=== PATIENT | male | born 1935 | race Caucasian/White ===

== ENCOUNTER 2024-02-22 01:11 | Inpatient (IN) | payer MEDICARE, SELFPAY ==
[2024-02-22] VITALS (38 sets, daily range): BP systolic 85–146; BP diastolic 46–86; PULSE 79–105; RESP 16–95; TEMP 35.7–37.3; O2SAT 90–99; BMI 31.5
--- NOTE | 2024-02-22 01:14 | EKG_ITS ---
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
--- NOTE | 2024-02-22 01:14 | XR_ITS ---
Examination: AP chest single view Technique: AP portable upright chest single view Exam date and time: February 22, 2024 at 0128 hrs. Comparison November 14, 2011 Indications: Onset chest pain today. Findings: Mild prominence left ventricle Mild vascular congestion. No lobar pneumonia or pulmonary edema Impression: Mild vascular congestion
--- NOTE | 2024-02-22 01:28 | PD.EDWEAK ---
ED Weakness RME/HPI General Chief complaint: Weakness Stated complaint: HYPOTENSION Time Seen by Provider: 02/22/24 01:13 Source: patient and EMS Arrival date/time: 02/22/24 01:11 Mode of arrival: EMS Limitations: no limitations RME / HPI RME / HPI Narrative: DR JONES MAIN ED EVALUATION: 88-year-old hard of hearing male and poor historian presents to ED via EMS for complaints of generalized weakness. He notes constipation. Denies any other medical complaints or associated symptoms. Complete HPI/ROS is unobtainable secondary to patient's condition and mental status. Related Data Home Medications ?Medication ?Instructions ?Recorded ?Confirmed isosorbide mononitrate 30 mg 30 mg PO QAM 02/22/24 02/22/24 tablet,extended release 24 hr sennosides 8.6 mg-docusate sodium 1 tab PO BID PRN Constipation 02/22/24 02/22/24 50 mg tablet (Senexon-S) warfarin 6 mg tablet 6 mg PO QDAY 02/22/24 02/22/24 aspirin 81 mg tablet 81 mg PO QDAY 02/25/24 02/25/24 Allergies Allergy/AdvReac Type Severity Reaction Status Date / Time aspirin AdvReac Unknown NOT Verified 12/11/20 11:07 ALLERGIC, BUT TAKES COUMADIN Review of Systems Review of Systems ROS Unobtainable: unobtainable due to mental status Narrative Review of Systems: Complete HPI/ROS is unobtainable secondary to patient's condition and mental status. Past Medical History Past Medical History NEUROLOGIC: Negative Seizures CARDIAC: Negative Congestive Heart Failure RESPIRATORY: Negative Chronic Obstructive Pulmonary Disease (COPD) or Asthma GENITOURINARY: Negative Renal Disease ENDOCRINE: Negative Diabetes Mellitus Type 1 or Diabetes Mellitus Type 2 HEMATOLOGIC: Negative Sickle Cell Disease OTHER HISTORY: Negative Blood Transfusions, Blood Transfusion Reaction or Anesthesia Reactions Social History SMOKING STATUS: Never smoker SECOND HAND EXPOSURE: No SUBSTANCE USE: does not use ED Exam Narrative Physical exam: GENERAL APPEARANCE: alert and oriented to person; hard of hearing; well-developed, well-nourished, no acute distress VITALS: All vitals were reviewed and the pulse ox is 96% on room air, which is normal according to my interpretation. HEENT: Normocephalic, atraumatic; pupils equal, round, reactive to light; EOMI; mucous membranes pink, moist; oropharynx clear NECK: Supple LUNGS: CTABL; no wheezes, no rales, no rhonchi HEART: Regular rate, regular rhythm; normal S1, S2; no murmurs ABDOMEN: non distended; normal BS; soft, no tenderness, no guarding, no rebound; no masses, no organomegaly, no hernia BACK: no CVA tenderness EXTREMITIES: atraumatic; no edema NEUROLOGIC: awake; alert and oriented x4; cranial nerves II-XII grossly intact; no focal sensory or motor deficits PSYCHIATRIC: appropriate mood and affect SKIN: warm, dry, normal color; no rashes General Limitations: Present no limitations Course Quality Measures none Orders Category Date Time Status Bedside COVID-19 Antigen Test NOW Care 02/22/24 03:49 Completed Sleep Manager NOW Care 02/22/24 01:14 Completed EKG (ED ONLY) *Do not use* NOW Care 02/22/24 01:14 Completed Lopez [Urinary Catheter] QS Care 02/22/24 01:37 Active Initiate Warming Therapy NOW Care 02/22/24 01:47 Completed Insert IV NOW Care 02/22/24 01:15 Completed Occult Blood,Stool (Nursing) NOW Care 02/22/24 02:15 Completed Transfuse,blood/blood products NOW Care 02/22/24 02:15 Completed EKG (ED Only) Stat Exams 02/22/24 01:14 Draft XR chest 1V portable Stat Exams 02/22/24 01:14 Completed B-Type Natriuretic Peptide Stat Lab 02/22/24 01:35 Completed Blood Culture (Lab) Stat Lab 02/22/24 02:40 Completed CBC Stat Lab 02/22/24 01:35 Completed Comprehensive Metabolic Panel Stat Lab 02/22/24 01:35 Completed Lactate (Lactic Acid) Stat Lab 02/22/24 01:45 Completed Lipase Stat Lab 02/22/24 01:35 Completed Magnesium Stat Lab 02/22/24 01:35 Completed Occult Blood, Stool (LAB) Stat Lab 02/22/24 03:40 Completed Partial Thromboplastin Time Stat Lab 02/22/24 01:35 Completed Path Review Blood Smear Stat Lab 02/22/24 01:35 Completed Procalcitonin Stat Lab 02/22/24 01:35 Completed Prothrombin Time with INR Stat Lab 02/22/24 01:35 Completed Red Blood Cells Stat Lab 02/22/24 02:40 Completed Troponin I Stat Lab 02/22/24 01:35 Completed Type and Screen Stat Lab 02/22/24 02:40 Completed UA [Urinalysis] Stat Lab 02/22/24 01:45 Completed Urine Culture Stat Lab 02/22/24 01:45 Completed Phytonadione Inj [Vitamin K Inj] Med 02/22/24 03:52 Discontinued 10 mg SC X1 ONE Sodium Chloride 0.9% 1000 ml [Ns] 1,000 ml Med 02/22/24 01:14 Discontinued IV 999 mls/hr Vital Signs Vital signs: Vital Signs Temperature 96.2 F L 02/22/24 01:22 Pulse Rate 91 02/22/24 01:22 Respiratory Rate 16 02/22/24 01:22 Blood Pressure 118/65 02/22/24 01:22 Pulse Oximetry (%) 99 02/22/24 01:22 Oxygen Delivery Method Room Air 02/22/24 01:22 Weakness MDM Narrative MDM Narrative:: Scribe Attestation: IManolo am scribing for and in the presence of Dr. Jones. Provider Notation: Although this document has been carefully reviewed, there may still be some phonetic and other typographical errors. These errors are purely grammatical due to imperfections in the software program and should not be construed in any way to compromise the substance of the patient's medical care during this visit. 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 Films were reviewed. Labs significant for hgb 6.0, WBC 11.3, hematocrit 22.9, MCV 63, PT greater than 63.0, INR out of range and APTT 58.3. Medications / Prescriptions Medications or Prescriptions considered but not ordered:: None Medication administrations:: Medication Administration History Acetaminophen (Acetaminophen Lyly 325 Mg/10 Ml Udc) 650 mg PO Q6H PRN PRN Reason: PAIN SCALE 1-3 (mild Stop: 03/24/24 20:28 Acetaminophen (Acetaminophen Supp 650 Mg Supp) 650 mg NV Q6HR PRN PRN Reason: PAIN Stop: 03/30/24 12:31 Last Admin: 02/29/24 13:33 Dose: 650 mg Documented By: TD Acetylcysteine (Acetylcysteine Rt Lyly 10% 4 Ml Nebu) 3 ml INH Q8HRRT JOE Stop: 03/30/24 22:59 Last Admin: 03/01/24 14:40 Dose: 3 ml Documented By: Admin: 03/01/24 06:32 Dose: 3 ml Documented By: Admin: 02/29/24 23:48 Dose: 3 ml Documented By: KASI Amiodarone HCl (Amiodarone Hcl 200 Mg Tablet) 200 mg PO BID [facility] Stop: 03/26/24 10:14 Last Admin: 03/01/24 10:00 Dose: Not Given Documented By: JDada Non-Admin Reason: NPO Admin: 02/29/24 21:10 Dose: 200 mg Documented By: Admin: 02/28/24 09:00 Dose: Not Given Documented By: VL Non-Admin Reason: Other, see note Comments: Held per Dr Gould. Admin: 02/27/24 21:06 Dose: 200 mg Documented By: Admin: 02/27/24 09:27 Dose: 200 mg Documented By: Admin: 02/26/24 21:21 Dose: 200 mg Documented By: Admin: 02/26/24 09:11 Dose: 200 mg Documented By: Admin: 02/25/24 20:19 Dose: 200 mg Documented By: Admin: 02/25/24 10:28 Dose: 200 mg Documented By: YOSEF Diltiazem HCl (Diltiazem 30 Mg Tablet) 30 mg PO BID JOE Stop: 03/28/24 10:14 Last Admin: 02/28/24 09:14 Dose: Not Given Documented By: VL Non-Admin Reason: Other, see note Comments: Hold per Dr Gould. Admin: 02/27/24 21:09 Dose: 30 mg Documented By: Admin: 02/27/24 10:25 Dose: 30 mg Documented By: NV Glycerin (Glycerin, Adult 1 Ea Supp) 1 each NV QDAY PRN PRN Reason: CONSTIPATION Last Admin: 02/29/24 16:42 Dose: 1 each Documented By: TD Haloperidol Lactate (Haloperidol Lact Inj 5 Mg/Ml Vial) 2.5 mg IV Q6HR PRN PRN Reason: AGITATION (SEVERE) Piperacillin/Tazobactam/Dextrose (Zosyn) 3.375 gm in 50 mls @ 12.5 mls/hr IV Q8HR JOE Stop: 03/08/24 05:59 Last Admin: 03/01/24 14:31 Dose: 12.5 mls/hr Documented By: Infusion: 03/01/24 09:59 Dose: Infused Documented By: Admin: 03/01/24 05:59 Dose: 12.5 mls/hr Documented By: NL Potassium Chloride 40 meq/Calcium Gluconate 1 gm/Magnesium Sulfate 2 gm/Multivitamins/Minerals 10 ml/Amino Acids 1,044 mls @ 50 mls/hr IV .[id number] [facility] Stop: 03/02/24 07:52 Last Admin: 03/01/24 12:59 Dose: 50 mls/hr Documented By: ANTONIO Fat Emulsion-Corinth Oil/Soybean Oil (Clinopid 20% Iv) 500 mls @ 32 mls/hr IV [id number] [facility] Stop: 03/31/24 17:59 Last Admin: 03/01/24 17:51 Dose: 32 mls/hr Documented By: ANTONIO Potassium Chloride 40 meq/Calcium Gluconate 1 gm/Multivitamins/Minerals 10 ml/Amino Acids 1,040 mls @ 100 mls/hr IV .[id number] [facility] Stop: 03/02/24 13:23 Iron Sucrose (Iron Sucrose Cplx Inj 20 Mg/Ml Vial 5 Ml) 200 mg IVP DAILY JOE Stop: 03/04/24 09:01 Last Admin: 03/01/24 09:03 Dose: 200 mg Documented By: Admin: 02/29/24 09:16 Dose: 200 mg Documented By: TD Levalbuterol HCl (Levalbuterol Rt 0.63 Mg/3 Ml Nebu) 0.63 mg INH Q8HRRT [facility] Stop: 03/28/24 14:59 Last Admin: 12/09/24 14:40 Dose: 0.63 mg Documented By: Admin: 03/01/24 06:31 Dose: 0.63 mg Documented By: Admin: 02/29/24 23:48 Dose: 0.63 mg Documented By: Admin: 02/29/24 13:53 Dose: 0.63 mg Documented By: Admin: 02/29/24 07:34 Dose: 0.63 mg Documented By: Admin: 02/28/24 23:55 Dose: 0.63 mg Documented By: Admin: 02/28/24 14:38 Dose: 0.63 mg Documented By: Admin: 02/28/24 06:59 Dose: 0.63 mg Documented By: Admin: 02/27/24 22:13 Dose: 0.63 mg Documented By: Admin: 02/27/24 14:00 Dose: 0.63 mg Documented By: ERNESTO Midodrine (Midodrine 5 Mg Tablet) 5 mg PO TID PRN PRN Reason: SBP <90 Stop: 03/30/24 16:44 Ondansetron HCl (Ondansetron Inj 2 Mg/Ml Inj 2 Ml) 4 mg IV Q6H PRN; Protocol PRN Reason: NAUSEA OR VOMITING Stop: 03/23/24 04:08 Pantoprazole Sodium (Pantoprazole Inj 40 Mg Vial) 40 mg IVP QDAY [facility] Stop: 03/29/24 10:14 Last Admin: 03/01/24 09:04 Dose: 40 mg Documented By: JDada Admin: 02/29/24 09:16 Dose: 40 mg Documented By: Admin: 02/28/24 11:00 Dose: 40 mg Documented By: VL Discontinued Medications Acetaminophen (Acetaminophen 325 Mg Tablet) 650 mg PO Q6H PRN PRN Reason: Fever >101.5 Stop: 03/23/24 04:08 Acetaminophen (Acetaminophen 325 Mg Tablet) 650 mg PO Q6H PRN PRN Reason: PAIN SCALE 1-3 (mild Stop: 03/23/24 04:08 Acetaminophen (Acetaminophen Lyly 325 Mg/10 Ml Udc) 650 mg GT Q6H PRN PRN Reason: Fever >101.5 Stop: 03/24/24 20:27 Acetaminophen (Acetaminophen Lyly 325 Mg/10 Ml Udc) 650 mg GT Q6H PRN PRN Reason: PAIN SCALE 1-3 (mild Stop: 03/24/24 20:28 Acetaminophen (Acetaminophen Lyly 325 Mg/10 Ml Udc) 650 mg PO Q6H PRN PRN Reason: Fever >101.5 Stop: 03/24/24 20:27 Acetaminophen (Acetaminophen Lyly 325 Mg/10 Ml Udc) 650 mg PO Q6H PRN PRN Reason: PAIN SCALE 1-3 (mild Stop: 03/24/24 20:28 Acetylcysteine (Acetylcysteine Rt Lyly 10% 4 Ml Nebu) 3 ml INH Q4HRRT JOE Stop: 03/29/24 10:59 Acetylcysteine (Acetylcysteine Rt Lyly 10% 4 Ml Nebu) 3 ml INH Q8HRRT JOE Stop: 03/29/24 14:59 Acetylcysteine (Acetylcysteine Rt Lyly 10% 4 Ml Nebu) 3 ml INH Q6HRRT [facility] Stop: 03/29/24 12:59 Last Admin: 02/29/24 13:36 Dose: 3 ml Documented By: Admin: 02/29/24 07:35 Dose: 3 ml Documented By: Admin: 02/29/24 00:10 Dose: 3 ml Documented By: Admin: 02/28/24 18:50 Dose: 3 ml Documented By: Admin: 02/28/24 14:38 Dose: 3 ml Documented By: LEILA Alprazolam (Alprazolam 0.25 Mg Tablet) 0.25 mg PO X1 ONE Stop: 02/23/24 13:31 Last Admin: 02/23/24 13:46 Dose: 0.25 mg Documented By: CS Olanzapine 10 mg/ Sterile (Water 2.1 ml) 0 mg IM QDAY ONE Stop: 02/28/24 01:50 Last Admin: 02/28/24 02:21 Dose: 1 dose Documented By: NL Docusate Sodium (Docusate Sod 100 Mg Capsule) 100 mg PO QDAY [facility]; Protocol Stop: 03/23/24 08:59 Furosemide (Furosemide Inj 10 Mg/Ml 4ml Vial) 40 mg IVP X1 ONE Stop: 02/22/24 12:33 Last Admin: 02/22/24 13:08 Dose: 40 mg Documented By: CHAPINCITO Furosemide (Furosemide Inj 10 Mg/Ml Vial 2 Ml) 40 mg IVP BIDD [facility] Stop: 03/24/24 10:29 Last Admin: 02/24/24 05:08 Dose: 40 mg Documented By: Admin: 02/23/24 18:43 Dose: 40 mg Documented By: Admin: 02/23/24 12:43 Dose: 40 mg Documented By: CS Furosemide (Furosemide Inj 10 Mg/Ml 4ml Vial) 40 mg IVP X1 ONE Stop: 02/29/24 12:34 Last Admin: 02/29/24 13:33 Dose: 40 mg Documented By: TD Haloperidol Lactate (Haloperidol Lact Inj 5 Mg/Ml Vial) 5 mg IV X1 ONE Stop: 02/28/24 03:50 Last Admin: 02/29/24 09:20 Dose: Not Given Documented By: TD Non-Admin Reason: not needed overnight Haloperidol Lactate (Haloperidol Lact Inj 5 Mg/Ml Vial) 5 mg IM X1 ONE Stop: 02/28/24 03:50 Last Admin: 02/28/24 04:22 Dose: 5 mg Documented By: DARIEN Sodium Chloride (Ns) 1,000 mls @ 999 mls/hr IV .Q1H1M ONE Stop: 02/22/24 02:14 Last Admin: 02/22/24 02:47 Dose: Not Given Documented By: ELICEO Non-Admin Reason: Cancelled by Provider Prothrombin Complex Concent ( Human) 5,000 unit/ Sterile Water 100 ml/ IV Miscellaneous Supplies 100 mls @ 400 mls/hr IV X1 ONE Stop: 02/22/24 04:26 Last Admin: 02/22/24 04:31 Dose: Not Given Documented By: MARTIN Non-Admin Reason: Cancelled by Provider Prothrombin Complex Concent ( Human) 4,950 unit/ Sterile Water 100 ml/ IV Miscellaneous Supplies 100 mls @ 400 mls/hr IV X1 ONE Stop: 02/22/24 04:26 Last Infusion: 02/22/24 05:55 Dose: Infused Documented By: Admin: 02/22/24 05:21 Dose: 400 mls/hr Documented By: SF Piperacillin Sod/Tazobactam (Sod 3.375 gm/ Sodium Chloride) 50 mls @ 12.5 mls/hr IV Q8HR JOE Stop: 02/29/24 18:14 Last Infusion: 02/25/24 19:53 Dose: Infused Documented By: Admin: 02/25/24 05:17 Dose: 12.5 mls/hr Documented By: Infusion: 02/25/24 01:19 Dose: Infused Documented By: Admin: 02/24/24 21:19 Dose: 12.5 mls/hr Documented By: Infusion: 02/24/24 18:01 Dose: Infused Documented By: Admin: 02/24/24 14:01 Dose: 12.5 mls/hr Documented By: Infusion: 02/24/24 09:08 Dose: Infused Documented By: Admin: 02/24/24 05:08 Dose: 12.5 mls/hr Documented By: Infusion: 02/24/24 02:13 Dose: Infused Documented By: Admin: 02/23/24 22:13 Dose: 12.5 mls/hr Documented By: Infusion: 02/23/24 18:25 Dose: Infused Documented By: Admin: 02/23/24 14:25 Dose: 12.5 mls/hr Documented By: Infusion: 02/23/24 09:50 Dose: Infused Documented By: Admin: 02/23/24 05:50 Dose: 12.5 mls/hr Documented By: Infusion: 02/22/24 23:14 Dose: Infused Documented By: Admin: 02/22/24 21:59 Dose: Not Given Documented By: MIHIR Non-Admin Reason: Wrong Time Admin: 02/22/24 19:14 Dose: 12.5 mls/hr Documented By: MIHIR Amiodarone HCl/Dextrose (Nexterone Ivpb) 150 mg in 100 mls @ 600 mls/hr IV .Q10M ONE Stop: 02/23/24 16:42 Last Admin: 02/23/24 16:55 Dose: 600 mls/hr Documented By: VA Amiodarone HCl/Dextrose (Nexterone Ivpb) 360 mg in 200 mls @ 33.333 mls/hr IV .Q6H ONE Stop: 02/23/24 22:32 Last Admin: 02/23/24 17:15 Dose: 33.333 mls/hr Documented By: VA Amiodarone HCl/Dextrose (Nexterone Ivpb) 360 mg in 200 mls @ 16.667 mls/hr IV .Q12H [facility] Last Admin: 02/24/24 17:56 Dose: Not Given Documented By: YOSEF Non-Admin Reason: held by provider Admin: 02/23/24 23:24 Dose: 16.667 mls/hr Documented By: ASHVIN Potassium Chloride (Kcl Ivpb) 10 meq in 100 mls @ 100 mls/hr IV Q1H JOE Stop: 02/24/24 11:31 Last Admin: 02/24/24 12:22 Dose: 75 mls/hr Documented By: Infusion: 02/24/24 12:22 Dose: Infused Documented By: Admin: 02/24/24 11:22 Dose: 75 mls/hr Documented By: Infusion: 02/24/24 10:46 Dose: Infused Documented By: Admin: 02/24/24 09:26 Dose: 75 mls/hr Documented By: Infusion: 02/24/24 09:25 Dose: Infused Documented By: Admin: 02/24/24 08:05 Dose: 75 mls/hr Documented By: YOSEF Magnesium Sulfate (Magnesium Sulfate Ivpb) 4 gm in 50 mls @ 12.5 mls/hr IV X1 ONE Stop: 02/24/24 11:32 Last Admin: 02/24/24 08:19 Dose: 12.5 mls/hr Documented By: YOSEF Sodium Chloride (Ns) 500 mls @ 999 mls/hr IV .Q31M ONE Stop: 02/24/24 13:01 Last Admin: 02/24/24 12:34 Dose: 999 mls/hr Documented By: YOSEF Albumin Human (Albuminar-25 Ivpb) 12.5 gm in 50 mls @ 50 mls/hr IV X1 ONE Stop: 02/24/24 13:33 Last Admin: 02/24/24 12:45 Dose: 50 mls/hr Documented By: YOSEF Potassium Chloride (Kcl Ivpb) 10 meq in 100 mls @ 70 mls/hr IV Q1H JOE Stop: 02/24/24 20:36 Last Infusion: 02/25/24 19:53 Dose: Infused Documented By: Admin: 02/24/24 23:41 Dose: 70 mls/hr Documented By: Infusion: 02/24/24 22:45 Dose: Infused Documented By: Admin: 02/24/24 21:19 Dose: 70 mls/hr Documented By: Infusion: 02/24/24 21:19 Dose: Infused Documented By: Admin: 02/24/24 20:03 Dose: 70 mls/hr Documented By: Infusion: 02/24/24 19:30 Dose: Infused Documented By: Admin: 02/24/24 18:04 Dose: 70 mls/hr Documented By: YOSEF Sodium Chloride (Ns) 500 mls @ 50 mls/hr IV .Q10H JOE Stop: 02/25/24 05:29 Last Infusion: 02/25/24 19:53 Dose: Infused Documented By: Admin: 02/24/24 19:32 Dose: 50 mls/hr Documented By: MARTHA Potassium Phosphate (Pot Phos 15 Mmol In Ns 250 Ml) 15 mmol in 250 mls @ 62.5 mls/hr IV X1 ONE Stop: 02/25/24 12:28 Last Infusion: 02/25/24 19:53 Dose: Infused Documented By: Admin: 02/25/24 12:35 Dose: 62.5 mls/hr Documented By: YOSEF Piperacillin/Tazobactam/Dextrose (Zosyn) 50 mls @ 12.5 mls/hr IV Q8HR JOE Stop: 02/29/24 18:14 Last Admin: 02/29/24 13:33 Dose: 12.5 mls/hr Documented By: Infusion: 02/29/24 09:31 Dose: Infused Documented By: Admin: 02/29/24 05:31 Dose: 12.5 mls/hr Documented By: Infusion: 02/29/24 01:02 Dose: Infused Documented By: Admin: 02/28/24 21:02 Dose: 12.5 mls/hr Documented By: Infusion: 02/28/24 18:14 Dose: Infused Documented By: Admin: 02/28/24 14:14 Dose: 12.5 mls/hr Documented By: Infusion: 02/28/24 09:15 Dose: Infused Documented By: Admin: 02/28/24 05:15 Dose: 12.5 mls/hr Documented By: Infusion: 02/28/24 01:02 Dose: Infused Documented By: Admin: 02/27/24 21:02 Dose: 12.5 mls/hr Documented By: Infusion: 02/27/24 17:56 Dose: Infused Documented By: Admin: 02/27/24 13:56 Dose: 12.5 mls/hr Documented By: Infusion: 02/27/24 09:14 Dose: Infused Documented By: Admin: 02/27/24 05:14 Dose: 12.5 mls/hr Documented By: Infusion: 02/27/24 01:22 Dose: Infused Documented By: Admin: 02/26/24 21:22 Dose: 12.5 mls/hr Documented By: Infusion: 02/26/24 18:32 Dose: Infused Documented By: Admin: 02/26/24 14:32 Dose: 12.5 mls/hr Documented By: Infusion: 02/26/24 09:38 Dose: Infused Documented By: Admin: 02/26/24 05:38 Dose: 12.5 mls/hr Documented By: Infusion: 02/26/24 03:21 Dose: Infused Documented By: Admin: 02/25/24 21:49 Dose: 12.5 mls/hr Documented By: Infusion: 02/25/24 19:52 Dose: Infused Documented By: Admin: 02/25/24 13:23 Dose: 12.5 mls/hr Documented By: YOSEF Potassium Chloride (Kcl Ivpb) 10 meq in 100 mls @ 100 mls/hr IV Q1H JOE Stop: 02/25/24 19:23 Last Infusion: 02/25/24 23:42 Dose: Infused Documented By: Admin: 02/25/24 20:14 Dose: 75 mls/hr Documented By: KAEstephania Infusion: 02/25/24 19:56 Dose: Infused Documented By: Admin: 02/25/24 18:36 Dose: 75 mls/hr Documented By: Infusion: 02/25/24 18:30 Dose: Infused Documented By: Admin: 02/25/24 17:10 Dose: 75 mls/hr Documented By: Infusion: 02/25/24 17:10 Dose: Infused Documented By: Admin: 02/25/24 15:58 Dose: 75 mls/hr Documented By: YOSEF Lactated Ringer's (Lactated Ringers) 1,000 mls @ 75 mls/hr IV .[id number] JOE Stop: 02/26/24 23:25 Last Admin: 02/27/24 16:06 Dose: Not Given Documented By: ER Non-Admin Reason: d/c chart clean up Sodium Chloride (Ns) 1,000 mls @ 75 mls/hr IV .[id number] ONE Stop: 02/27/24 01:07 Last Admin: 02/26/24 11:59 Dose: 75 mls/hr Documented By: ANTONIO Sodium Chloride (Ns) 500 mls @ 80 mls/hr IV .Q6H15M ONE Stop: 02/28/24 20:21 Last Admin: 02/28/24 14:16 Dose: 80 mls/hr Documented By: ROD Sodium Chloride (Ns) 500 mls @ 500 mls/hr IV .Q1H ONE Stop: 02/28/24 18:42 Last Admin: 02/28/24 17:59 Dose: 500 mls/hr Documented By: ROD Potassium Phosphate 22.5 mmol/ (Sodium Chloride) 507.5 mls @ 82.778 mls/hr IV X1 ONE Stop: 02/29/24 14:07 Last Admin: 02/29/24 09:39 Dose: 82.778 mls/hr Documented By: ARLENE Piperacillin/Tazobactam/Dextrose (Zosyn) 3.375 gm in 50 mls @ 100 mls/hr IV X1 ONE Stop: 02/29/24 19:14 Last Admin: 02/29/24 19:31 Dose: 100 mls/hr Documented By: DARIEN Dextrose (D10w 1000 Ml) 1,000 mls @ 60 mls/hr IV .[id number] JOE Stop: 03/01/24 10:59 Last Admin: 02/29/24 19:30 Dose: 60 mls/hr Documented By: DARIEN Phytonadione 10 mg/ Sodium (Chloride) 51 mls @ 153 mls/hr IV X1 ONE Stop: 03/01/24 07:49 Last Admin: 03/01/24 09:02 Dose: 153 mls/hr Documented By: ANTONIO Potassium Chloride (Kcl Ivpb) 10 meq in 100 mls @ 100 mls/hr IV Q1H JOE Stop: 03/01/24 09:25 Last Admin: 03/01/24 11:03 Dose: 60 mls/hr Documented By: Infusion: 03/01/24 10:44 Dose: Infused Documented By: Admin: 03/01/24 09:03 Dose: 60 mls/hr Documented By: JT Iron Sucrose (Iron Sucrose Cplx Inj 20 Mg/Ml Vial 5 Ml) 200 mg IVP DAILY JOE Stop: 02/28/24 16:44 Last Admin: 02/27/24 09:28 Dose: 200 mg Documented By: Admin: 02/26/24 09:12 Dose: 200 mg Documented By: Admin: 02/25/24 09:34 Dose: 200 mg Documented By: Admin: 02/24/24 18:02 Dose: 200 mg Documented By: YOSEF Comments: Pt. previously down for CT just arrived back on floor. Lansoprazole (Lansoprazole 30 Mg Tab.Rap.) 30 mg GT Q12HR JOE Stop: 03/25/24 21:59 Last Admin: 02/27/24 16:06 Dose: Not Given Documented By: ER Non-Admin Reason: d/c chart clean up Admin: 02/26/24 09:11 Dose: 30 mg Documented By: Admin: 02/25/24 20:20 Dose: 30 mg Documented By: JEFFERY Lansoprazole (Lansoprazole 30 Mg Tab.Rap) 30 mg PO Q12HR JOE Stop: 03/27/24 21:29 Last Admin: 02/26/24 21:21 Dose: 30 mg Documented By: DARIEN Lansoprazole (Lansoprazole 30 Mg Tab.Rap.) 30 mg PO Q12HR JOE Stop: 03/27/24 21:29 Last Admin: 02/28/24 09:17 Dose: Not Given Documented By: VL Non-Admin Reason: Other, see note Comments: Hold per Dr Gould. Admin: 02/27/24 21:09 Dose: 30 mg Documented By: Admin: 02/27/24 09:17 Dose: 30 mg Documented By: Admin: 02/26/24 21:28 Dose: 30 mg Documented By: DARIEN Levalbuterol HCl (Levalbuterol Rt 0.63 Mg/3 Ml Nebu) 0.63 mg INH Q8HR JOE Stop: 03/28/24 13:59 Magnesium Hydroxide (Milk Of Magnesia Susp 30 Ml Udc) 30 ml PO QDAY JOE; Protocol Stop: 03/27/24 10:14 Last Admin: 02/27/24 09:16 Dose: 30 ml Documented By: Admin: 02/26/24 11:17 Dose: 30 ml Documented By: ANTONIO Melatonin (Melatonin 3 Mg Tablet) 3 mg PO HS JOE Stop: 03/28/24 20:59 Last Admin: 02/27/24 21:09 Dose: 3 mg Documented By: DARIEN Midodrine (Midodrine 5 Mg Tablet) 5 mg PO TID PRN PRN Reason: SBP <90 Stop: 03/25/24 21:59 Oxycodone/Acetaminophen (Oxycodone/Apap 5/325 Tablet) 1 tab PO Q6H PRN PRN Reason: PAIN SCALE 4-6 (Moderate Stop: 02/27/24 04:08 Last Admin: 02/23/24 17:22 Dose: 1 tab Documented By: Admin: 02/22/24 13:36 Dose: 1 tab Documented By: CHAPINCITO Oxycodone/Acetaminophen (Oxycodone/Apap 5/325 Tablet) 1 tab GT Q6H PRN PRN Reason: PAIN SCALE 4-6 (Moderate Stop: 02/27/24 04:08 Pantoprazole Sodium (Pantoprazole Inj 40 Mg Vial) 40 mg IVP Q12HR [facility] Stop: 03/23/24 08:59 Last Admin: 02/25/24 09:35 Dose: 40 mg Documented By: Admin: 02/24/24 20:04 Dose: 40 mg Documented By: Admin: 02/24/24 09:40 Dose: 40 mg Documented By: Admin: 02/23/24 20:23 Dose: 40 mg Documented By: Admin: 02/23/24 09:36 Dose: 40 mg Documented By: Admin: 02/22/24 21:59 Dose: 40 mg Documented By: Admin: 02/22/24 08:28 Dose: 40 mg Documented By: CHAPINCITO Pharmacy Consult (Pha To Consult Parenteral Nutr 1 Each Each) 1 each XX PRN PRN PRN Reason: CONSULT Stop: 03/30/24 16:41 Phytonadione (Phytonadione Inj 10 Mg/Ml Amp) 10 mg SC X1 ONE Stop: 02/22/24 03:53 Last Admin: 02/22/24 05:25 Dose: 10 mg Documented By: BLAKE Phytonadione (Phytonadione Inj 10 Mg/Ml Amp) 10 mg SC X1 ONE Stop: 02/22/24 10:59 Last Admin: 02/22/24 11:58 Dose: Not Given Documented By: CHAPINCITO Non-Admin Reason: Cancelled by Provider Phytonadione (Phytonadione Inj 10 Mg/Ml Amp) 10 mg IV X1 ONE Stop: 03/01/24 07:10 Piperacillin Sod/Tazobactam Sod (Piperacillin/Tazo Inj 3.375 Gm Vial) Confirm Administered Dose 3.375 gm IV .STK-MED ONE Stop: 02/24/24 13:44 Last Admin: 02/24/24 14:04 Dose: Not Given Documented By: YOSEF Non-Admin Reason: Duplicate Medication on eMAR Potassium Chloride (Potassium Chloride 10% 20 Meq/15 Ml Udc) 40 meq GT X1 ONE Stop: 02/24/24 15:13 Last Admin: 02/24/24 15:36 Dose: 40 meq Documented By: YOSEF Potassium Chloride (Potassium Chloride 10% 20 Meq/15 Ml Udc) 40 meq GT X1 ONE Stop: 02/24/24 16:37 Last Admin: 02/24/24 16:59 Dose: 40 meq Documented By: YOSEF Quetiapine Fumarate (Quetiapine Fumarate 25 Mg Tablet) 25 mg PO X1 ONE Stop: 02/28/24 00:52 Last Admin: 02/28/24 01:04 Dose: 25 mg Documented By: DARIEN Sennosides (Senna/Docusate Sod 1 Tab Tablet) 1 tab PO BID JOE; Protocol Stop: 03/23/24 08:59 Last Admin: 02/23/24 20:23 Dose: 1 tab Documented By: ASHVIN Comments: VIA NGT Admin: 02/23/24 09:36 Dose: 1 tab Documented By: Admin: 02/22/24 22:00 Dose: 1 tab Documented By: Admin: 02/22/24 08:28 Dose: 1 tab Documented By: CHAPINCITO Sennosides (Senna/Docusate Sod 1 Tab Tablet) 1 tab PO BID JOE; Protocol Stop: 03/23/24 08:59 Last Admin: 02/26/24 09:11 Dose: 1 tab Documented By: Admin: 02/25/24 20:19 Dose: 1 tab Documented By: Admin: 02/25/24 09:28 Dose: Not Given Documented By: YOSEF Non-Admin Reason: held per MD order Admin: 02/24/24 20:03 Dose: 1 tab Documented By: Admin: 02/24/24 09:41 Dose: 1 tab Documented By: Admin: 02/23/24 20:46 Dose: Not Given Documented By: ASHVIN Non-Admin Reason: TASK DUPLICATION; ALREADY GIVEN VIA NGT As above Consultations Consultation(s) initiated? (list below): Yes Consultation #1 (Physician, Specialty, Details): Case d/w hospitalist who agreed to admit patient for further management and work-up Diagnosis Weakness Differential Diagnosis: anemia, hypothyroidism, rhabdomyolysis and dehydration Most likely diagnosis given after review of the tests above:: Acute symptomatic blood loss anemia secondary to severe Coumadin coagulopathy Admission Indicated Admission indicated?: indicated Admission Request Was there a request for admission?: Yes Admission Attestation Admission request attestation: Discussed case with [] from Hospitalist service regarding admission. Discussed patients ED course, exam findings, labs, and radiology results. The Hospitalist [agrees,declines] to accept the patient for admission. Disposition Plan Disposition Plan: Admit Discharge Plan Plan Patient Disposition: Admit Acute Care w/in Hospital Problem List Clinical Impression: Symptomatic anemia, Warfarin-induced coagulopathy, Near syncope
[2024-02-22 01:56] LABS: Collection Type, Urine Catheter
[2024-02-22 01:57] LABS: Basophils % (Auto) 0 % (0-2.5); Eosinophils % (Auto) 0 % (0-10); Hematocrit 22.9 % (41.0-53.0); Immature Granulocytes % (Auto) 1 % (0-0); Immature Granulocytes Auto 0.06 Thou/mm3 (0.00-0.00); Lymphocytes % (Auto) 9 % (10-50); Mean Corpuscular HGB Conc 26.2 g/dl (31.0-37.0); Mean Corpuscular Hemoglobin 16.4 pg (25.0-35.0); Mean Corpuscular Volume 63 fL (80-100); Monocytes # (Auto) 0.6 Thou/mm3 (0.0-0.8); Monocytes % (Auto) 5 % (0-12); Neutrophils # (Auto) 9.6 Thou/mm3 (1.8-7.7); Neutrophils % (Auto) 85 % (37-80); Nucleated Red Blood Cell # 0.04 Thou/mm3 (0.00-0.00); Nucleated Red Blood Cell % 0 /100 WBC (0); Platelet Count 391 Thou/mm3 (140-440); RDW Standard Deviation 43.6 fL (35.1-43.9); Red Blood Count 3.66 Miln/mm3 (4.50-5.90); White Blood Count 11.3 Thou/mm3 (3.8-10.6)
[2024-02-22 02:03] LABS: Bilirubin,Urine Negative (Negative); Blood,Urine Trace (Negative); Clarity,Urine Clear (Clear/Hazy); Color,Urine Yellow (Lt Yel-Yel); Glucose, Urine Negative (Negative); Ketones,Urine 1+ (Negative); Leukocyte Esterase,Urine Negative (Negative); Nitrite,Urine Negative (Negative); Protein,Urine 1+ (Neg - Trace); RBC,Urine 3 /hpf (0-3); Specific Gravity,Urine 1.027 (1.001-1.035); Squamous Epithelial Cell,Urine 1 /hpf (0-5); WBC,Urine 4 /hpf (0-5)
[2024-02-22 02:13] LABS: Lactate (Lactic Acid) 2.7 mMol/L (0.4-2.0)
[2024-02-22 02:19] LABS: B-Type Natriuretic Peptide 236 pg/mL (0-100)
[2024-02-22 02:20] LABS: Alanine Aminotransferase 52 U/L (10-49); Albumin, Serum 3.5 gm/dL (3.4-4.8); Albumin/Globulin Ratio 1.3 (1.2-2.2); Alkaline Phosphatase 102 U/L (46-116); Anion Gap 12 (7-16); Aspartate Amino Transferase 53 U/L (0-34); BUN/Creatinine Ratio 19 Ratio (12-20); Bilirubin,Total 1.4 mg/dL (0.3-1.2); Blood Urea Nitrogen 17 mg/dL (9-23); Calcium 8.4 mg/dL (8.3-10.6); Calcium (Corrected) 8.8 mg/dL (8.5-10.1); Carbon Dioxide 21.5 mMol/L (20.0-31.0); Chloride 103 mMol/L (98-107); Creatinine (Component) 0.9 mg/dL (0.6-1.3); Estimated Creatinine Clearance 65.9 mL/min (>60); Globulin 2.7 gm/dL (2.3-3.5); Glucose 142 mg/dL (74-106); Lipase 22 U/L (12-53); Magnesium 1.6 mg/dL (1.6-2.6); Osmolality,Calculated 275 (275-295); Potassium 3.6 mMol/L (3.4-5.1); Sodium 136 mMol/L (136-145); Total Protein 6.2 gm/dL (5.7-8.2); Troponin I < 0.020 ng/mL (0.0-0.045); eGFR > 60 See Note
[2024-02-22 02:41] LABS: Procalcitonin 0.09 ng/ml (0.0-0.49)
[2024-02-22 03:17] LABS: Partial Thromboplastin Time 58.3 Seconds (22.0-36.0)
[2024-02-22 03:20] LABS: Prothrombin Time > 63.0 Seconds (9.0-12.2)
[2024-02-22 03:52] LABS: OBS Card Lot # 23001; OBS Developer Lot # 23003; OBS Performed By boted; OBS QC OK? Yes; Occult Blood, Stool Negative (Negative)
--- NOTE | 2024-02-22 05:12 | PC.NURSE ---
Per Dr. Meng give full 5000 units prothrombin complex concentrate
[2024-02-22 05:13] LABS: Reflex Lactate? Y
--- NOTE | 2024-02-22 05:16 | ESHP_ITS ---
Documentation for date of: 02/22/24 [facility] History of Present Illness History of present illness: The patient is a 88-year-old male with significant past medical history of gout, hypertension, DVT currently on warfarin who presented to our ED with chief complaint of generalized weakness. The patient called 911 and was brought to the ED. He is very hard of hearing and is poor historian. Multiple attempts were made to contact his son Rj, but was unsuccessful. The patient has been on warfarin 6 mg for a long time. He admitted constipation, but denied any dark stool or any blood per rectum. He denied any headache, chest pain, SOB, palpitation, abdominal pain, or any leg swelling. He also denied any fever or chills, nausea or vomiting. In the ED vitals were significant for temperature of 96.2, saturating 99% on room air. Labs are significant for hemoglobin 6.0, WBC 11.3, hematocrit 22.9, MCV 63, PT greater than 63.0, INR out of range and APTT 58.3. Patient received vitamin K 10 mg subcutaneous x 1, and was given PCC 4950 units. PMH: As mentioned above SHX: Unable to obtain Medications: Warfarin, to be reconciled Allergies: Aspirin Review of Systems Review of Systems Systems Reviewed: All systems reviewed, normal except as documented Exam Vital Signs Temp Pulse Resp BP Pulse Ox O2 Del Method 96.2 F L 79 20 85/46 L 94 L Room Air 02/22/24 01:47 02/22/24 03:00 02/22/24 03:00 02/22/24 03:00 02/22/24 03:00 02/22/24 01:22 Narrative Exam General: No acute distress, Alert and Oriented x 3 HEENT: Mildly dry mucous membranes, oropharynx clear, extremely hard of hearing Neck: Supple, No masses, No JVD CVS: S1S2 Regular rate and rhythm, No murmurs, rubs or gallops Lungs: Clear to auscultation with no accessory use, no wheeze no rhonchi Abd: Soft, NT/ND, +BS, no organomegaly Ext: No edema, warm and well perfused Skin: No rash Psych: Appropriate mood and affect Results: Labs 02/22/24 04:59 02/22/24 04:59 Labs: Short CBC 02/22/24 Range/Units 01:35 WBC 11.3 H (3.8-10.6) Thou/mm3 Hgb 6.0 L* (13.5-16.0) g/dL Hct 22.9 L (41.0-53.0) % Plt Count 391 (140-440) Thou/mm3 BMP 02/22/24 01:35 Sodium 136 Potassium 3.6 Chloride 103 Carbon Dioxide 21.5 BUN 17 Creatinine 0.9 Glucose 142 H Calcium 8.4 Cardiac Enzymes 02/22/24 Range/Units 01:35 Troponin I < 0.020 (0.0-0.045) ng/mL Liver Function 02/22/24 Range/Units 01:35 Total Bilirubin 1.4 H (0.3-1.2) mg/dL AST 53 H (0-34) U/L ALT 52 H (10-49) U/L Alkaline Phosphatase 102 (46-116) U/L Albumin 3.5 (3.4-4.8) gm/dL Urine 02/22/24 Range/Units 01:45 Urine Color Yellow (Lt Yel-Yel) Urine Clarity Clear (Clear/Hazy) Urine pH 6.0 (5.0-7.0) Ur Specific [place] 1.027 (1.001-1.035) Urine Protein 1+ A (Neg - Trace) Urine Glucose (UA) Negative (Negative) Quality Measures Quality Measures none Advance care planning discussed with:: patient Medications Home Medications and Allergies Home Medications ?Medication ?Instructions ?Recorded ?Confirmed ?Type warfarin 6 mg tablet (Coumadin) 6 mg PO QWEEK 12/02/18 12/02/18 History Allergies Allergy/AdvReac Type Severity Reaction Status Date / Time aspirin AdvReac Unknown NOT Verified 12/11/20 11:07 ALLERGIC, BUT TAKES COUMADIN Visit Medications Acetaminophen (Acetaminophen 325 Mg Tablet) 650 mg PO Q6H PRN PRN Reason: Fever >101.5 Stop: 03/23/24 04:08 Acetaminophen (Acetaminophen 325 Mg Tablet) 650 mg PO Q6H PRN PRN Reason: PAIN SCALE 1-3 (mild Stop: 03/23/24 04:08 Ondansetron HCl (Ondansetron Inj 2 Mg/Ml Inj 2 Ml) 4 mg IV Q6H PRN; Protocol PRN Reason: NAUSEA OR VOMITING Stop: 03/23/24 04:08 Oxycodone/Acetaminophen (Oxycodone/Apap 5/325 Tablet) 1 tab PO Q6H PRN PRN Reason: PAIN SCALE 4-6 (Moderate Stop: 02/27/24 04:08 Pantoprazole Sodium (Pantoprazole Inj 40 Mg Vial) 40 mg IVP Q12HR JOE Stop: 03/23/24 08:59 Sennosides (Senna/Docusate Sod 1 Tab Tablet) 1 tab PO BID JOE; Protocol Stop: 03/23/24 08:59 Discontinued Medications Docusate Sodium (Docusate Sod 100 Mg Capsule) 100 mg PO QDAY JOE; Protocol Stop: 03/23/24 08:59 Sodium Chloride (Ns) 1,000 mls @ 999 mls/hr IV .Q1H1M ONE Stop: 02/22/24 02:14 Last Admin: 02/22/24 02:47 Dose: Not Given Prothrombin Complex Concent ( Human) 5,000 unit/ Sterile Water 100 ml/ IV Miscellaneous Supplies 100 mls @ 400 mls/hr IV X1 ONE Stop: 02/22/24 04:26 Last Admin: 02/22/24 04:31 Dose: Not Given Prothrombin Complex Concent ( Human) 4,950 unit/ Sterile Water 100 ml/ IV Miscellaneous Supplies 100 mls @ 400 mls/hr IV X1 ONE Stop: 02/22/24 04:26 Phytonadione (Phytonadione Inj 10 Mg/Ml Amp) 10 mg SC X1 ONE Stop: 02/22/24 03:53 Assessment & Plan Plan The patient is a 88-year-old male with significant past medical history of gout, hypertension, DVT currently on warfarin who presented to our ED with chief complaint of generalized weakness he is currently being treated for acute symptomatic blood loss anemia secondary to severe Coumadin coagulopathy. #Acute symptomatic blood loss anemia 2/2 #Severe Coumadin coagulopathy Patient is taking warfarin for long time for DVT, dose and frequency could not be figured out as patient is very hard of hearing and poor historian Etiology of blood loss unknown, but likely differential is acute GI bleed Presented with hemoglobin 6.0, hematocrit 22.9, PT greater than 63.0, INR out of range and APTT 58.3 Received 1 unit of PRBC in the ED Received 1 dose of vitamin K 10 Mg subcutaneous -Ordered Kcentra 4950 units for Coumadin reversal as INR is out of friends -Monitor H&H every 6 hourly -Post transfusional H&H -We will consider ordering post Kcentra infusion coagulation panel -Occult blood test ordered, depending on the results we will consider consulting GI Dr. Gomez -Monitor vitals closely #Hypertension Currently patient is hypotensive -Monitor vitals #Hypothermia Presented with temperature of 96.2 and patient was placed on warmer -Currently temperature is stable #Leukocytosis -Likely reactive -Daily CBC monitoring Health maintenance: Dispo: Patient admitted to telemetry unit for further management of acute symptomatic blood loss anemia secondary to severe Coumadin coagulopathy Diet: N.p.o. 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 He has supratherapeutic INR with a pro time of greater than 63. Patient was given vitamin K in the ER. Kcentra was also ordered. Patient will receive blood transfusion. Patient is awake. He has stable vital signs. He denies headache and no abdominal pain. Patient will be admitted for treatment of anemia and supratherapeutic INR.
[2024-02-22] MEDS: PROTHROMBIN COMPLEX CONCENT IV (05:21)
[2024-02-22] MEDS: STERILE WATER IV (05:21)
[2024-02-22] MEDS: [UNRECOGNIZED DRUG - OTHER] IV (05:21)
[2024-02-22 05:24] LABS: Lactic Acid, 3 HR 1.7 mMol/L (0.4-2.0)
[2024-02-22] MEDS: PHYTONADIONE INJ 10 MG/ML AMP SC (05:25)
[2024-02-22 05:34] LABS: Basophils % (Auto) 0 % (0-2.5); Eosinophils % (Auto) 0 % (0-10); Hematocrit 21.7 % (41.0-53.0); Immature Granulocytes % (Auto) 1 % (0-0); Immature Granulocytes Auto 0.07 Thou/mm3 (0.00-0.00); Lymphocytes # (Auto) 0.3 Thou/mm3 (1.0-4.8); Lymphocytes % (Auto) 2 % (10-50); Mean Corpuscular HGB Conc 27.2 g/dl (31.0-37.0); Mean Corpuscular Hemoglobin 16.7 pg (25.0-35.0); Mean Corpuscular Volume 61 fL (80-100); Monocytes # (Auto) 1.4 Thou/mm3 (0.0-0.8); Monocytes % (Auto) 10 % (0-12); Neutrophils % (Auto) 87 % (37-80); Nucleated Red Blood Cell # 0.04 Thou/mm3 (0.00-0.00); Nucleated Red Blood Cell % 0 /100 WBC (0); Platelet Count 373 Thou/mm3 (140-440); RDW Standard Deviation 43.4 fL (35.1-43.9); Red Blood Count 3.54 Miln/mm3 (4.50-5.90); White Blood Count 13.7 Thou/mm3 (3.8-10.6)
[2024-02-22 05:39] LABS: Hemoglobin 5.9 g/dL (13.5-16.0)
[2024-02-22 05:41] LABS: Path Review Blood Smear Sent to Pathologist
[2024-02-22 06:04] LABS: Alanine Aminotransferase 46 U/L (10-49); Albumin, Serum 3.1 gm/dL (3.4-4.8); Albumin/Globulin Ratio 1.2 (1.2-2.2); Alkaline Phosphatase 91 U/L (46-116); Anion Gap 10 (7-16); Aspartate Amino Transferase 43 U/L (0-34); BUN/Creatinine Ratio 23 Ratio (12-20); Bilirubin,Total 1.3 mg/dL (0.3-1.2); Blood Urea Nitrogen 18 mg/dL (9-23); Calcium 8.3 mg/dL (8.3-10.6); Chloride 104 mMol/L (98-107); Creatinine (Component) 0.8 mg/dL (0.6-1.3); Estimated Creatinine Clearance 74.1 mL/min (>60); Globulin 2.5 gm/dL (2.3-3.5); Glucose 130 mg/dL (74-106); Magnesium 1.6 mg/dL (1.6-2.6); Osmolality,Calculated 275 (275-295); Potassium 3.5 mMol/L (3.4-5.1); Sodium 136 mMol/L (136-145); Total Protein 5.6 gm/dL (5.7-8.2); eGFR > 60 See Note
--- NOTE | 2024-02-22 07:40 | ECHO_ITS ---
Transthoracic Echo Report Ht (in): 70 Wt (lb): 220 Exam Location: Portable Status: Inpatient Patient Registration Clerk: Maricarmen Link Indications: Procedure Performed: BP: 110 / 63 HR: 101 Rhythm: Tachycardia Technical Quality: Technically difficult study MEASUREMENTS (Male / Female) Normal Values 2D ECHO LV Diastolic Diameter PLAX 5.0 cm 4.2 - 5.9 / 3.9 - 5.3 cm LV Systolic Diameter PLAX 3.6 cm IVS Diastolic Thickness 0.7 cm 0.6 - 1.0 / 0.6 - 0.9 cm LVPW Diastolic Thickness 1.0 cm 0.6 - 1.0 / 0.6 - 0.9 cm LV Relative Wall Thickness 0.3 LVOT Diameter 1.9 cm LA Volume Index 41.6 cm?/m? 16 - 28 cm?/m? M-MODE Aortic Root Diameter MM 3.2 cm LA Systolic Diameter MM 4.4 cm LA Ao Ratio MM 1.4 AV Cusp Separation MM 2.1 cm DOPPLER AV Peak Velocity 188.0 cm/s AV Peak Gradient 14.1 mmHg AV Mean Gradient 8.0 mmHg AV Velocity Time Integral 31.9 cm LVOT Peak Velocity 140.0 cm/s LVOT Peak Gradient 7.8 mmHg LVOT Velocity Time Integral 24.2 cm LVOT Cardiac Index 3081.6 cm?/min?m? AV Area Cont Eq vti 2.2 cm? AV Area Cont Eq pk 2.1 cm? MV Peak Velocity 90.4 cm/s MV Peak Gradient 3.3 mmHg MV Mean Velocity 71.6 cm/s MV Mean Gradient 2.0 mmHg MV Area PHT 3.1 cm? MR Peak Velocity 300.5 cm/s MR Peak Gradient 36.1 mmHg Mitral E Point Velocity 69.4 cm/s Mitral A Point Velocity 81.0 cm/s Mitral E to A Ratio 0.9 LV E' Lateral Velocity 9.9 cm/s Mitral E to LV E' Lateral Ratio 7.0 LV E' Septal Velocity 7.0 cm/s Mitral E to LV E' Septal Ratio 10.0 TR Peak Velocity 362.0 cm/s TR Peak Gradient 52.4 mmHg FINDINGS Left Ventricle Normal left ventricular size, wall thickness, systolic function with no obvious regional wall motion abnormalities. The ejection fraction is visually estimated at 55-60%. Right Ventricle The right ventricle is mildly dilated. The estimated right ventricular systolic pressure, 80mmHg. RAP 15. Left Atrium The left atrium is mildly dilated. Right Atrium The right atrium is mildly dilated. Atrial Septum The interatrial septum appears normal with no evidence of a shunt. Aorta The aorta is normal by two-dimensional, color flow and Doppler interrogation. Mitral Valve The mitral valve is mildly MAC. There is mild mitral valve regurgitation. Aortic Valve The aortic valve is trileaflet and normal by two-dimensional, color flow and Doppler interrogation. There is no significant aortic valve regurgitation. Tricuspid Valve The tricuspid valve is normal by two-dimensional, color flow and Doppler interrogation. There is mil d tricuspid valve regurgitation. Pulmonic Valve The pulmonic valve is not well visualized. There is no significant pulmonic valve regurgitation. Vessels The pulmonary artery appears normal. The inferior vena cava pulmonary and hepatic veins appear vijaya l. Pericardium The pericardium is normal by two-dimensional imaging. There is no significant pericardial effusion. CONCLUSIONS Indication: Elevated BNP Normal LV size and function. Grade I diastolic dysfunction. Estimated EF 55-60% Dilated RV. Normal RV function. Estimated RVSP 80 mm hg. moderate to severe PAH. Mild biatrial dilation. Mild MAC. Mild MR, TR. Alber Prieto (Electronically Signed) Final Date: 24 February 2024 23:39
[2024-02-22] MEDS: SENNA/DOCUSATE SOD 1 TAB TABLET PO ×2 (08:28→22:00)
[2024-02-22] MEDS: PANTOPRAZOLE INJ 40 MG VIAL IVP ×2 (08:28→21:59)
[2024-02-22 10:14] LABS: Total Iron Binding Capacity 267 mcg/dL (250-425)
[2024-02-22 10:24] LABS: Iron 8 mcg/dL (65-175); Percent Iron Saturation 2 % (20-55); Unsaturated Iron Binding 259 (225-295)
[2024-02-22 10:48] LABS: Prothrombin Time > 63.0 Seconds (9.0-12.2)
--- NOTE | 2024-02-22 10:56 | XR_ITS ---
Examination: CT abdomen and pelvis without contrast. Coronal 3-D reconstructions. Sagittal 2-D reconstructions. Date and time of exam:February 22, 2024 1539 hrs. Indications: Abdominal pain and distention beginning today CTDI: vol (mGy): 12.7 DLP: (mGycm): 849 Technique: Axial images of the abdomen have been obtained, 3 mm slice thickness Intravenous contrast material has not been administered. Low dose protocols were performed. One or more of the following dose reduction techniques were used; automated exposure control, adjustment of the mA and/or KV according to patient size, use of iterative reconstruction technique. Findings: Small bilateral pleural effusions Trace pericardial thickening Vasculature is prominent with enlarged cardiac contour Pneumoperitoneum, free fluid in the abdomen No gallstones No hydronephrosis Colonic diverticulosis Normal appendix Urinary bladder contracted around a Lopez catheter Prominent osteopenia Impression: Primary hepatocellular disease Pneumoperitoneum, clinical correlation advised
[2024-02-22] MEDS: FUROSEMIDE INJ 10 MG/ML 4ML VIAL 40 MG IVP (13:08)
[2024-02-22] MEDS: oxyCODONE/APAP 5/325 TABLET 1 TAB PO (13:36)
[2024-02-22 13:52] LABS: Hematocrit 30.4 % (41.0-53.0)
[2024-02-22 14:07] LABS: Hemoglobin 8.8 g/dL (13.5-16.0)
[2024-02-22 14:13] LABS: INR 1.7 (0.9-1.3); Prothrombin Time 18.2 Seconds (9.0-12.2)
--- NOTE | 2024-02-22 14:35 | PC.SS ---
Mariaelena Espinoza a 88-year-old male admitted to [facility] for Symptomatic Anemia. SS conducted over the phone contact with the patient?s son Rj Espinoza to complete initial assessment and to discuss discharge planning. Chente confirmed demographic information. He identifies himself as the pts surrogate decision maker Rj Espinoza [phone]. Patient resides at home alone. Chente states pt is typically able to complete all ADL?s independently, no need for any source of DME, per Chente the pt is very stubborn and refuses help and DME such as his cane. Pt has one but never uses. Pts PCP is Dr. Rosario (pt sees PCP every 3 months) and pharmacy of choice is [facility]. DC option discussed and per Chente we can try to see if pt would be open to going to SNF for PT or HH but as mentioned before pt is stubborn per Chente. SS will remain available for any additional needs or concerns. DC Plan: Pending Contact: Rj Espinoza [phone] PCP: Abraham
--- NOTE | 2024-02-22 15:20 | ESPR_ITS ---
Documentation for date of: 02/22/24 Subjective Subjective Interval history: Patient was seen and examined by the bedside In ICU. Patient is really hard of hearing but able to respond appropriately when talked in a high pitch. Vitals are stable. No signs of external bleeding were noted. On physical examination there is severe right upper quadrant tenderness. Repeat INR after 1 FFP, 1 PCC and 2 doses of vitamin K is 1.7. Transfused [address] abdomen was ordered in view of suspicion of bleeding and perforation. CT abdomen report was pending but suspected to have free air in the abdomen so consulted Dr. Do for further evaluation and management. Around 6:[address] Sigala informed the nurses about the pneumoperitoneum on the CT abdomen and immediately consulted Dr. Do and gave the information about the patient's condition. Orders were put in for NG tube and Zosyn. Exam Vital Signs Temp Pulse Resp BP Pulse Ox O2 Del Method O2 Flow Rate 97.0 F 94 17 124/83 92 L Room Air 2 02/22/24 13:57 02/22/24 13:57 02/22/24 13:57 02/22/24 13:57 02/22/24 13:57 02/22/24 12:00 02/22/24 13:27 Narrative Exam General: Awake and in no acute distress. HEENT: Normocephalic, atraumatic, mucous membranes moist. Heart: Regular rate and rhythm, no murmurs. Lungs: Clear to auscultation with no wheezing or crackles. Abdomen: Soft distended and severe tenderness present mainly on the right upper quadrant with decreased bowel sounds. Neurologic: Alert and oriented x3, no gross neurological deficit, and patient able to move all 4 extremities. Extremities: No edema. Skin: No rash or ecchymoses. Objective Labs 02/23/24 02:31 02/23/24 05:50 Labs: Laboratory Results - last 24 hr 02/22/24 02/22/24 02/22/24 01:35 01:45 02:40 WBC 11.3 H RBC 3.66 L Hgb 6.0 L* Hct 22.9 L MCV 63 L MCH 16.4 L MCHC 26.2 L RDW Std Deviation 43.6 Plt Count 391 Neut % (Auto) 85 H Lymph % (Auto) 9 L [place] % (Auto) 5 Eos % (Auto) 0 Baso % (Auto) 0 Neut # (Auto) 9.6 H Lymph # (Auto) 1.0 [place] # (Auto) 0.6 Eos # (Auto) 0.0 Baso # (Auto) 0.0 Immature Gran # (Auto) 0.06 H Absolute Nucleated RBC 0.04 H Immature Gran % 1 H Nucleated RBC % 0 Smear Path Review Sent to Pathologist PT > 63.0 H* INR APTT 58.3 H Sodium 136 Potassium 3.6 Chloride 103 Carbon Dioxide 21.5 Anion Gap 12 BUN 17 Creatinine 0.9 Estim Creat Clear Calc 65.9 eGFR > 60 BUN/Creatinine Ratio 19 Glucose 142 H Calculated Osmolality 275 Lactic Acid 2.7 H Calcium 8.4 Corrected Calcium 8.8 Magnesium 1.6 Iron TIBC Iron Saturation Unsat Iron Binding Total Bilirubin 1.4 H AST 53 H ALT 52 H Alkaline Phosphatase 102 Troponin I < 0.020 B-Natriuretic Peptide 236 H Total Protein 6.2 Albumin 3.5 Globulin 2.7 Albumin/Globulin Ratio 1.3 Lipase 22 Procalcitonin 0.09 Ur Collection Type Catheter Urine Color Yellow Urine Clarity Clear Urine pH 6.0 Ur Specific [place] 1.027 Urine Protein 1+ A Urine Glucose (UA) Negative Urine Ketones 1+ A Urine Blood Trace Urine Nitrite Negative Urine Bilirubin Negative Urine Urobilinogen (Auto) 8.0 Ur Leukocyte Esterase Negative Urine RBC 3 Urine WBC 4 Ur Squamous Epith Cells 1 Urine Bacteria None Stool Occult Blood Blood Type O Positive Antibody Screen NEGATIVE Crossmatch See Detail Blood Bank Wristband ID Yes Blood Bank Comment FFP Ready 02/22/24 02/22/24 02/22/24 03:40 04:59 13:25 WBC 13.7 H RBC 3.54 L Hgb 5.9 L* 8.8 L D Hct 21.7 L* 30.4 L MCV 61 L MCH 16.7 L MCHC 27.2 L RDW Std Deviation 43.4 Plt Count 373 Neut % (Auto) 87 H Lymph % (Auto) 2 L [place] % (Auto) 10 Eos % (Auto) 0 Baso % (Auto) 0 Neut # (Auto) 12.0 H Lymph # (Auto) 0.3 L [place] # (Auto) 1.4 H Eos # (Auto) 0.0 Baso # (Auto) 0.0 Immature Gran # (Auto) 0.07 H Absolute Nucleated RBC 0.04 H Immature Gran % 1 H Nucleated RBC % 0 Smear Path Review PT > 63.0 H* 18.2 H D INR 1.7 H APTT Sodium 136 Potassium 3.5 Chloride 104 Carbon Dioxide 22.0 Anion Gap 10 BUN 18 Creatinine 0.8 Estim Creat Clear Calc 74.1 eGFR > 60 BUN/Creatinine Ratio 23 H Glucose 130 H Calculated Osmolality 275 Lactic Acid 1.7 Calcium 8.3 Corrected Calcium 9.0 Magnesium 1.6 Iron 8 L TIBC 267 Iron Saturation 2 L Unsat Iron Binding 259 Total Bilirubin 1.3 H AST 43 H ALT 46 Alkaline Phosphatase 91 Troponin I B-Natriuretic Peptide Total Protein 5.6 L Albumin 3.1 L Globulin 2.5 Albumin/Globulin Ratio 1.2 Lipase Procalcitonin Ur Collection Type Urine Color Urine Clarity Urine pH Ur Specific [place] Urine Protein Urine Glucose (UA) Urine Ketones Urine Blood Urine Nitrite Urine Bilirubin Urine Urobilinogen (Auto) Ur Leukocyte Esterase Urine RBC Urine WBC Ur Squamous Epith Cells Urine Bacteria Stool Occult Blood Negative Blood Type Antibody Screen Crossmatch Blood Bank Wristband ID Blood Bank Comment Quality Measures Quality Measures none Advance care planning discussed with:: patient and child Assessment & Plan Assessment Current Active Medications: Generic Name Dose Route Start Last Admin Trade Name Freq PRN Reason Stop Dose Admin Acetaminophen 650 mg 02/22/24 04:09 Acetaminophen 325 Mg Tablet PO 03/23/24 04:08 Q6H PRN Fever >101.5 Acetaminophen 650 mg 02/22/24 04:09 Acetaminophen 325 Mg Tablet PO 03/23/24 04:08 Q6H PRN PAIN SCALE 1-3 (mild Ondansetron HCl 4 mg 02/22/24 04:09 Ondansetron Inj 2 Mg/Ml Inj 2 Ml IV 03/23/24 04:08 Q6H PRN NAUSEA OR VOMITING Protocol Oxycodone/Acetaminophen 1 tab 02/22/24 04:09 02/22/24 13:36 Oxycodone/Apap 5/325 Tablet PO 02/27/24 04:08 1 tab Q6H PRN Administration PAIN SCALE 4-6 (Moderate Pantoprazole Sodium 40 mg 02/22/24 09:00 02/22/24 08:28 Pantoprazole Inj 40 Mg Vial IVP 03/23/24 08:59 40 mg Q12HR JOE Administration Sennosides 1 tab 02/22/24 09:00 02/22/24 08:28 Senna/Docusate Sod 1 Tab Tablet PO 03/23/24 08:59 1 tab BID JOE Administration Protocol Plan The patient is a 88-year-old male with significant past medical history of gout, hypertension, DVT currently on warfarin who presented to our ED with chief complaint of generalized weakness he is currently being treated for acute symptomatic blood loss anemia secondary to severe Coumadin coagulopathy. # ?Bowel perforation -On examination, severe tenderness noted on superficial palpation mainly on the right upper quadrant. -Chest x-ray showed air under diaphragm -CT abdomen/pelvis was ordered, read is pending but there is suspicion of perforation as there is free air in the abdomen. -Surgery consultation was done, will appreciate recommendations. -Inserted NG tube and started IV Zosyn. -CT abdomen/pelvis report came back as pneumoperitoneum and immediately Dr. Do was consulted. #Acute symptomatic blood loss anemia 2/ #Severe Coumadin coagulopathy Patient is taking warfarin for long time for DVT, dose and frequency could not be figured out as patient is very hard of hearing and poor historian Etiology of blood loss unknown, but likely differential is acute GI bleed Presented with hemoglobin 6.0, hematocrit 22.9, PT greater than 63.0, INR out of range and APTT 58.3 Received 1 unit of PRBC in the ED Received 1 dose of vitamin K 10 Mg subcutaneous Received Kcentra 4950 units for Coumadin reversal as INR is out of range Plan -Received total 2 packs of RBC, 1 Pack of FFP, 4950 units of Kcentra, 2 doses of vitamin K 10 Mg, a dose of 40 Mg Lasix. She will -Hemoglobin improved to 8.8 -Repeat INR at 1:25 PM is 1.7. #H/O Hypertension Currently patient is hypotensive and not using any home medications -Monitor vitals #Hypothermia, resolved Presented with temperature of 96.2 and patient was placed on warmer -Currently temperature is stable #Leukocytosis -Likely reactive -Daily CBC monitoring Health maintenance: Dispo: medsurg Diet: N.p.o. for now DVT prophylaxis: SCDs CODE STATUS: DNR/DNI Patient plan of care was discussed with the attending physician, Dr. Janette Gould, PGY1 Attending Provider Attestation/Addendum Corina, Cheryl Savage, DO, attest that I was physically present for the vela portions of the service and evaluated the patient with the resident and I reviewed and discussed the case with the resident and agree with the resident's findings and plans of care as documented above Patient seen and evaluated this AM. Patient very hard of hearing and per nursing, patient's son reported that he had fallen at home a few days ago. Patient did not tell him until a few days later. Patient denies any chest pain or shortness of breath. However, on exam, patient is noted to have a distended abdomen with tenderness to palpation, mainly in his RUQ. 2+ b/l LE edema noted. Will give lasix between blood transfusions. No ecchymosis noted on abdomen. FOBT negative. Patient has received 2 units of FFP, 2 units of pRBCs, one dose of PCC and vitK. Will continue to follow INR. CT scan of abd/pelvis was done and showed pneumoperitoneum. Surgeon was immediately called regarding findings while read was pending. Vital signs have been stable and no plans for intervention at this time as there is a suspicion that air noted on imaging may be 2/2 superimposed bowel. Will continue with IV diuresis. F/u with coags. Trend H/H and monitor volume status closely. .
--- NOTE | 2024-02-22 19:03 | XR_ITS ---
Examination: AP chest single view Technique one AP portable semiupright chest single view Exam date and time: February 22, 2024 1916 hrs. Comparison 09/22/2023 1328 hrs. Indications: Post orogastric tube placement. Findings: Mild enlargement cardiac contour Significant vascular congestion Orogastric tube in stomach, satisfactory position Impression: Orogastric tube satisfactory position
[2024-02-22] MEDS: PIPER/TAZO INJ 3.375 GM in SODIUM CHLORIDE 0.9% (P) 50 ML IV (19:14)
--- NOTE | 2024-02-22 19:26 | PC.NURSE ---
Addendum entered by Effie Katz RN 02/22/24 19:33: Dr. Mejia will not be doing surgery, new order to place pt on LIS. Original Note: Dr. Mejia in to see patient.
--- NOTE | 2024-02-22 19:41 | PD.SURCONS ---
HPI Consult details History of present illness: 88M with HTN, gout, DVT in remote past with IVC filter and on warfarin who called 911 late last night due to weakness. He was found to have Hgb 6, Wbc 11.3 and PTT 58. Pt has been transfused with appropriate response, however due to abdominal pain underwent CT AP which shows concern for pneumoperitoneum. Pt has remained afebrile with normal vital signs PMH: HTN, gout, DVT in remote past PSHx: IVC filter Meds: includes warfarin Allergies: NKDA Review of Systems Review of Systems ROS Unobtainable: All systems reviewed & no additional complaints except as documented Meds Home Medications and Allergies Home Medications ?Medication ?Instructions ?Recorded ?Confirmed ?Type warfarin 6 mg tablet (Coumadin) 6 mg PO QWEEK 12/02/18 12/02/18 History isosorbide mononitrate 30 mg 30 mg PO QAM 02/22/24 02/22/24 History tablet,extended release 24 hr sennosides 8.6 mg-docusate sodium 1 tab PO BID PRN Constipation 02/22/24 02/22/24 History 50 mg tablet (Senexon-S) warfarin 6 mg tablet 6 mg PO QDAY 02/22/24 02/22/24 History Allergies Allergy/AdvReac Type Severity Reaction Status Date / Time aspirin AdvReac Unknown NOT Verified 12/11/20 11:07 ALLERGIC, BUT TAKES COUMADIN Exam Vital Signs Temp Pulse Resp BP Pulse Ox O2 Del Method O2 Flow Rate 99.1 F 96 16 119/61 92 L Room Air 2 02/22/24 18:11 02/22/24 18:11 02/22/24 18:11 02/22/24 18:11 02/22/24 18:11 02/22/24 12:00 02/22/24 18:08 Constitutional Constitutional: no acute distress Routine Respiratory Exam Respiratory: Present no resp distress Routine Abdominal Exam Abdominal: Present soft, tenderness (mild tenderness upper abdomen) and distended (mild distention); Absent rebound, guarding, firm, rigid or hernia Results Results: Laboratory Laboratory results: results reviewed Results: Imaging CT scan - abdomen: report reviewed and image reviewed Assessment & Plan Plan 88M with HTN, gout, remote DVT on warfarin who presented with weakness and findings of anemia, additionally with abdominal pain and possible pneumoperitoneum on CT. As pt is clinically well with normal vital signs, minimal tenderness and improved lactate I explained to his son that he may have pseudo-pneumoperitoneum (such as bowel above the liver) or that he did have a perforated viscus which has sealed itself. In either case it does not seem that surgery would lead to an improvement in his clinical status. Pt's son expressed understanding and is agreeable to watchful waiting NG to LIS Continue abx Monitor vital signs Will follow
[2024-02-22 20:52] LABS: Hematocrit 30.5 % (41.0-53.0); Hemoglobin 9.2 g/dL (13.5-16.0)
[2024-02-22 21:03] LABS: INR 1.8 (0.9-1.3); Prothrombin Time 18.8 Seconds (9.0-12.2)
[2024-02-23] VITALS (16 sets, daily range): BP systolic 104–128; BP diastolic 63–77; PULSE 87–139; RESP 16–27; TEMP 36.1–36.6; O2SAT 92–97; BMI 31.5; BMI 11.0
[2024-02-23 03:00] LABS: Hematocrit 29.4 % (41.0-53.0)
[2024-02-23 03:05] LABS: Hemoglobin 8.8 g/dL (13.5-16.0)
[2024-02-23 03:11] LABS: INR 2.2 (0.9-1.3); Prothrombin Time 22.4 Seconds (9.0-12.2)
[2024-02-23] MEDS: PIPER/TAZO INJ 3.375 GM in SODIUM CHLORIDE 0.9% (P) 50 ML IV ×3 (05:50→22:13)
[2024-02-23 06:54] LABS: Alanine Aminotransferase 35 U/L (10-49); Albumin, Serum 3.3 gm/dL (3.4-4.8); Albumin/Globulin Ratio 1.3 (1.2-2.2); Alkaline Phosphatase 88 U/L (46-116); Anion Gap 11 (7-16); Aspartate Amino Transferase 34 U/L (0-34); BUN/Creatinine Ratio 23 Ratio (12-20); Bilirubin,Total 2.7 mg/dL (0.3-1.2); Blood Urea Nitrogen 23 mg/dL (9-23); Calcium 8.2 mg/dL (8.3-10.6); Calcium (Corrected) 8.8 mg/dL (8.5-10.1); Carbon Dioxide 22.8 mMol/L (20.0-31.0); Chloride 103 mMol/L (98-107); Estimated Creatinine Clearance 59.3 mL/min (>60); Globulin 2.5 gm/dL (2.3-3.5); Glucose 135 mg/dL (74-106); Magnesium 1.6 mg/dL (1.6-2.6); Osmolality,Calculated 279 (275-295); Phosphorous 2.3 mg/dL (2.4-5.1); Potassium 3.6 mMol/L (3.4-5.1); Sodium 137 mMol/L (136-145); Total Protein 5.8 gm/dL (5.7-8.2); eGFR > 60 See Note
[2024-02-23 08:46] LABS: Basophils # (Auto) 0.1 Thou/mm3 (0.0-0.2); Basophils % (Auto) 0 % (0-2.5); Eosinophils % (Auto) 0 % (0-10); Hematocrit 30.8 % (41.0-53.0); Hemoglobin 9.1 g/dL (13.5-16.0); Immature Granulocytes % (Auto) 1 % (0-0); Immature Granulocytes Auto 0.19 Thou/mm3 (0.00-0.00); Lymphocytes # (Auto) 0.7 Thou/mm3 (1.0-4.8); Lymphocytes % (Auto) 3 % (10-50); Mean Corpuscular HGB Conc 29.5 g/dl (31.0-37.0); Mean Corpuscular Hemoglobin 19.6 pg (25.0-35.0); Mean Corpuscular Volume 66 fL (80-100); Monocytes # (Auto) 1.7 Thou/mm3 (0.0-0.8); Monocytes % (Auto) 8 % (0-12); Neutrophils # (Auto) 20.3 Thou/mm3 (1.8-7.7); Neutrophils % (Auto) 88 % (37-80); Nucleated Red Blood Cell # 0.03 Thou/mm3 (0.00-0.00); Nucleated Red Blood Cell % 0 /100 WBC (0); Platelet Count 233 Thou/mm3 (140-440); RDW Standard Deviation 55.5 fL (35.1-43.9); Red Blood Count 4.64 Miln/mm3 (4.50-5.90)
[2024-02-23 08:59] LABS: INR 2.1 (0.9-1.3); Prothrombin Time 22.2 Seconds (9.0-12.2)
[2024-02-23] MEDS: SENNA/DOCUSATE SOD 1 TAB TABLET PO ×2 (09:36→20:23)
[2024-02-23] MEDS: PANTOPRAZOLE INJ 40 MG VIAL IVP ×2 (09:36→20:23)
[2024-02-23] MEDS: FUROSEMIDE INJ 10 MG/ML VIAL 2 ML 40 MG IVP ×2 (12:43→18:43)
--- NOTE | 2024-02-23 12:54 | PC.SS ---
SNF inquiry sent. PASRR completed. Level 1.
[2024-02-23] MEDS: ALPRazoLAM 0.25 MG TABLET PO (13:46)
--- NOTE | 2024-02-23 14:29 | PC.SS ---
Rounding note: pending surgery recommendations and transfusion.
--- NOTE | 2024-02-23 14:43 | ESPR_ITS ---
<Statement entered by Yue Walton MD - 02/24/24 07:51> Patient was seen and examined by me personally. I agree with most of the assessment and plan as discussed with the pharmacy intern physician, and my attending, Dr. Savage. Continuing with conservative management (Abx, bowel rest, NG tube on LIS) for ?bowel perf, as per gen surg recs. Patient also developed AFRVR and was transferred to telemetry, and started on amiodarone drip. Yue Walton MD, PGY-3 Documentation for date of: 02/23/24 Subjective Subjective Interval history: Patient was seen and examined bedside. Dr. Do saw the patient yesterday and as the patient is hemodynamically stable with no severe symptoms, advised conservative management for pneumoperitoneum noted on CT abdomen. No acute overnight events. Still complaining of abdominal pain. Vitals are stable. On physical examination there is severe tenderness noted throughout the abdomen. NG tube in situ with greenish fluid draining. Labs showed elevated WBC count, microcytic hypochromic anemia, elevated bilirubin 2.7. Consulted Dr. Gomez to rule out GI bleed in view of anemia. Around 5:30 PM patient was found to have atrial fibrillation with rapid ventricular rate for which patient was started on amiodarone as per protocol and upgraded to telemetry for further monitoring. Anticoagulation is not started in view of elevated INR, 2.1. Started on Lasix 40 Mg twice daily in view of fluid overload. Echo is taken but read is still pending Exam Vital Signs Temp Pulse Resp BP Pulse Ox O2 Del Method O2 Flow Rate 96.9 F 98 25 H 118/77 94 L Nasal Cannula 3 02/23/24 11:54 02/23/24 14:12 02/23/24 14:12 02/23/24 12:43 02/23/24 14:12 02/23/24 11:54 02/23/24 14:12 Narrative Exam General: Awake and in no acute distress. HEENT: Normocephalic, atraumatic, mucous membranes moist. Heart: Regular rate and rhythm, no murmurs. Lungs: Clear to auscultation with no wheezing or crackles. Abdomen: Soft, distended with severe tenderness throughout the abdomen. But bowel sounds are noted Neurologic: Alert and oriented x3, no gross neurological deficit, and patient able to move all 4 extremities. Extremities: Bilateral pitting 4+ pedal edema is noted. Skin: No rash or ecchymoses. Objective Labs 02/24/24 05:24 02/24/24 05:24 Labs: Laboratory Results - last 24 hr 02/22/24 02/22/24 02/23/24 02:40 20:18 02:31 WBC RBC Hgb 9.2 L 8.8 L Hct 30.5 L 29.4 L MCV MCH MCHC RDW Std Deviation Plt Count Neut % (Auto) Lymph % (Auto) [place] % (Auto) Eos % (Auto) Baso % (Auto) Neut # (Auto) Lymph # (Auto) [place] # (Auto) Eos # (Auto) Baso # (Auto) Immature Gran # (Auto) Absolute Nucleated RBC Immature Gran % Nucleated RBC % PT 18.8 H 22.4 H D INR 1.8 H 2.2 H Sodium Potassium Chloride Carbon Dioxide Anion Gap BUN Creatinine Estim Creat Clear Calc eGFR BUN/Creatinine Ratio Glucose Calculated Osmolality Calcium Corrected Calcium Phosphorus Magnesium Total Bilirubin AST ALT Alkaline Phosphatase Total Protein Albumin Globulin Albumin/Globulin Ratio Blood Type O Positive Antibody Screen NEGATIVE Crossmatch See Detail Blood Bank Wristband ID Yes Blood Bank Comment FFP Ready 02/23/24 02/23/24 02/23/24 05:50 07:59 07:59 WBC 23.0 H D RBC 4.64 Hgb Cancelled 9.1 L Hct Cancelled MCV MCH MCHC RDW Std Deviation Plt Count Neut % (Auto) Lymph % (Auto) [place] % (Auto) Eos % (Auto) Baso % (Auto) Neut # (Auto) Lymph # (Auto) [place] # (Auto) Eos # (Auto) Baso # (Auto) Immature Gran # (Auto) Absolute Nucleated RBC Immature Gran % Nucleated RBC % PT INR Sodium 137 Potassium 3.6 Chloride 103 Carbon Dioxide 22.8 Anion Gap 11 BUN 23 Creatinine 1.0 Estim Creat Clear Calc 59.3 L eGFR > 60 BUN/Creatinine Ratio 23 H Glucose 135 H Calculated Osmolality 279 Calcium 8.2 L Corrected Calcium 8.8 Phosphorus 2.3 L Magnesium 1.6 Total Bilirubin 2.7 H D AST 34 ALT 35 Alkaline Phosphatase 88 Total Protein 5.8 Albumin 3.3 L Globulin 2.5 Albumin/Globulin Ratio 1.3 Blood Type Antibody Screen Crossmatch Blood Bank Wristband ID Blood Bank Comment 02/23/24 07:59 WBC RBC Hgb Hct 30.8 L MCV 66 L MCH 19.6 L MCHC 29.5 L RDW Std Deviation 55.5 H Plt Count 233 D Neut % (Auto) 88 H Lymph % (Auto) [address] % (Auto) 8 Eos % (Auto) 0 Baso % (Auto) 0 Neut # (Auto) 20.3 H Lymph # (Auto) 0.[address] [place] # (Auto) 1.7 H Eos # (Auto) 0.0 Baso # (Auto) 0.1 Immature Gran # (Auto) 0.19 H Absolute Nucleated RBC 0.03 H Immature Gran % 1 H Nucleated RBC % 0 PT 22.2 H INR 2.1 H Sodium Potassium Chloride Carbon Dioxide Anion Gap BUN Creatinine Estim Creat Clear Calc eGFR BUN/Creatinine Ratio Glucose Calculated Osmolality Calcium Corrected Calcium Phosphorus Magnesium Total Bilirubin AST ALT Alkaline Phosphatase Total Protein Albumin Globulin Albumin/Globulin Ratio Blood Type Antibody Screen Crossmatch Blood Bank Wristband ID Blood Bank Comment Quality Measures Quality Measures none Advance care planning discussed with:: patient and child Assessment & Plan Assessment Current Active Medications: Generic Name Dose Route Start Last Admin Trade Name Freq PRN Reason Stop Dose Admin Acetaminophen 650 mg 02/22/24 04:09 Acetaminophen 325 Mg Tablet PO 03/23/24 04:08 Q6H PRN Fever >101.5 Acetaminophen 650 mg 02/22/24 04:09 Acetaminophen 325 Mg Tablet PO 03/23/24 04:08 Q6H PRN PAIN SCALE 1-3 (mild Furosemide 40 mg 02/23/24 10:30 02/23/24 12:43 Furosemide Inj 10 Mg/Ml Vial 2 Ml IVP 03/24/24 10:29 40 mg BIDD JOE Administration Piperacillin Sod/Tazobactam 50 mls @ 12.5 mls/hr 02/22/24 18:15 02/23/24 14:25 Sod 3.375 gm/ Sodium Chloride IV 02/29/24 18:14 12.5 mls/hr Q8HR JOE Administration Ondansetron HCl 4 mg 02/22/24 04:09 Ondansetron Inj 2 Mg/Ml Inj 2 Ml IV 03/23/24 04:08 Q6H PRN NAUSEA OR VOMITING Protocol Oxycodone/Acetaminophen 1 tab 02/22/24 04:09 02/22/24 13:36 Oxycodone/Apap 5/325 Tablet PO 02/27/24 04:08 1 tab Q6H PRN Administration PAIN SCALE 4-6 (Moderate Pantoprazole Sodium 40 mg 02/22/24 09:00 02/23/24 09:36 Pantoprazole Inj 40 Mg Vial IVP 03/23/24 08:59 40 mg Q12HR JOE Administration Sennosides 1 tab 02/22/24 09:00 02/23/24 09:36 Senna/Docusate Sod 1 Tab Tablet PO 03/23/24 08:59 1 tab BID JOE Administration Protocol Plan The patient is a 88-year-old male with significant past medical history of gout, hypertension, DVT currently on warfarin who presented to our ED with chief complaint of generalized weakness he is currently being treated for acute symptomatic blood loss anemia secondary to severe Coumadin coagulopathy. # New onset atrial fibrillation with rapid ventricular rate # In the setting of ongoing sepsis -Around 5:00 PM on 02/23/2024 patient was noted to have atrial fibrillation with rapid ventricular rate -Started on amiodarone as per protocol -Held heparin as patient INR is 2.1 -Echo is done but read is pending, will follow -Started Lasix 40 Mg IV twice daily in view of fluid overload # ?Bowel perforation # Pneumoperitoneum -On examination, severe tenderness noted on superficial palpation mainly on the right upper quadrant. -Chest x-ray showed air under diaphragm -CT abdomen/pelvis was ordered, read is pending but there is suspicion of perforation as there is free air in the abdomen. -Surgery consultation was done, will appreciate recommendations. -Inserted NG tube and started IV Zosyn. -CT abdomen/pelvis report came back as pneumoperitoneum and immediately Dr. Do was consulted. -Dr. Do recommended conservative management for now as patient is hemodynamically stable. #Acute symptomatic blood loss anemia 2/2 #Severe Coumadin coagulopathy Patient is taking warfarin for long time for DVT, dose and frequency could not be figured out as patient is very hard of hearing and poor historian Etiology of blood loss unknown, but likely differential is acute GI bleed Presented with hemoglobin 6.0, hematocrit 22.9, PT greater than 63.0, INR out of range and APTT 58.3 Received 1 unit of PRBC in the ED Received 1 dose of vitamin K 10 Mg subcutaneous Received Kcentra 4950 units for Coumadin reversal as INR is out of range Plan -Received total 2 packs of RBC, 1 Pack of FFP, 4950 units of Kcentra, 2 doses of vitamin K 10 Mg, a dose of 40 Mg Lasix. -Repeat INR on 02/23/2024 is 2.1 #H/O Hypertension Currently patient is hemodynamically stable. -Monitor vitals #Hypothermia, resolved Presented with temperature of 96.2 and patient was placed on warmer -Currently temperature is stable #Leukocytosis -Likely reactive -Daily CBC monitoring Health maintenance: Dispo: medsurg Diet: N.p.o. for now DVT prophylaxis: SCDs CODE STATUS: DNR/DNI Patient plan of care was discussed with the attending physician, Dr. Savage and senior resident Dr. Anton Gould, PGY1 Attending Provider Attestation/Addendum I, Cheryl Savage, , attest that I was physically present for the vela portions of the service and evaluated the patient with the resident and I reviewed and discussed the case with the resident and agree with the resident's findings and plans of care as documented above Patient seen and evaluated this AM. Patient seen and evaluated this AM. He has no acute complaints, but continues to have pain on palpation of RUQ. Abdomen is soft otherwise. NG tube was placed overnight with minimal output. Patient denies any chest pain or shortness of breath. Patient developed afib and was started on amiodarone drip. INR remains elevated. No surgical interventions recommended by surgeon at this time. Recommends removal of NG tube and advance diet. Hgb has been stable s/p transfusion of 2 units pRBCs yesterday. FOBT negative. Case was also discussed with GI for further evaluation. Anemia studies ordered.
--- NOTE | 2024-02-23 15:46 | PC.NURSE ---
made aware pt has heart rhythm change, afib, no history of it, ekg to be ordered
--- NOTE | 2024-02-23 15:46 | EKG_ITS ---
[facility] Test Date: 2024-02-23 Pat Name: FRANCINE COLON Department: Room: 65A Gender: Male Dental Surgery Doctor: JUSTA : 1935 Requested By: Miguelangel Gould Order Number: [id number] Reading MD: Miguelangel Gould Measurements Intervals [place] Rate: 120 P: AL: QRS: 50 QRSD: 97 T: -25 QT: 236 QTc: 333 Interpretive Statements ATRIAL FIBRILLATION WITH RAPID VENTRICULAR RESPONSE WITH ABERRANT CONDUCTION OR VENTRICULAR PREMATURE COMPLEXES LOW QRS VOLTAGE IN PRECORDIAL LEADS [QRS DEFLECTION < 1.0 mV IN CHEST LEADS] NONSPECIFIC ST & T-WAVE ABNORMALITY Compared to ECG 02/22/2024 01:49:36 Aberrant conduction of supraventricular beat(s) now present T-wave abnormality now present Sinus rhythm no longer present ST (T wave) deviation no longer present /store/S0/[id number]/ecg/[id number].pdf
--- NOTE | 2024-02-23 16:54 | ESPR_ITS ---
Documentation for date of: 02/23/24 Subjective Subjective Brief History: 88M with HTN, gout, DVT in remote past with IVC filter and on warfarin who called 911 late last night due to weakness. He was found to have Hgb 6, Wbc 11.3 and PTT 58. Pt has been transfused with appropriate response, however due to abdominal pain underwent CT AP which shows concern for pneumoperitoneum. Pt has remained afebrile with normal vital signs PMH: HTN, gout, DVT in remote past PSHx: IVC filter Meds: includes warfarin Allergies: NKDA Narrative: This morning denies pain and nausea, had 100cc output from NG overnight, has not yet passed gas or had a BM. Remaining afebrile but WBC 23 from 13 Exam Vital Signs Temp Pulse Resp BP Pulse Ox O2 Del Method O2 Flow Rate 97.4 F 139 H 18 111/69 95 Room Air 3 02/23/24 16:00 02/23/24 16:33 02/23/24 16:00 02/23/24 16:00 02/23/24 16:00 02/23/24 16:00 02/23/24 14:12 Constitutional Constitutional: no acute distress Routine Respiratory Exam Respiratory: Present no resp distress Routine Abdominal Exam Abdominal: Present soft; Absent tenderness or distended Results Results: Laboratory Laboratory results: results reviewed Assessment & Plan Plan 88M with HTN, gout, remote DVT on warfarin who presented with weakness and findings of anemia, additionally with abdominal pain and possible pneumoperitoneum on CT. As pt is clinically well with normal vital signs, minima l tenderness and improved lactate I explained to his son that he may have pseudo-pneumoperitoneum (such as bowel above the liver) or that he did have a perforated viscus which has sealed itself. In either case it does not seem that surgery would lead to an improvement in his clinical status. Pt's son expressed understanding and is agreeable to watchful waiting Continue abx Appreciate GI recs re anemia Will follow
[2024-02-23] MEDS: AMIODARONE 150 MG IVPB 150 MG/100 ML BAG 600 MG IV (16:55)
[2024-02-23] MEDS: AMIODARONE 360 MG IVPB 360 MG/200 ML BAG 33.333 MG IV (17:15)
[2024-02-23] MEDS: oxyCODONE/APAP 5/325 TABLET 1 TAB PO (17:22)
--- NOTE | 2024-02-23 18:05 | PC.NURSE ---
Patient transported to telemetry room 277 from [place] [address] via bed per ERICK Hernadez and FILI Arboleda. Hand-off report taken from ERICK Hernadez.
[2024-02-23 19:22] LABS: LDH (Lactate Dehydrogenase) 207 U/L (120-246)
[2024-02-23 19:27] LABS: Ferritin 40 ng/mL (10.5-307.3)
--- NOTE | 2024-02-23 20:30 | PC.NURSE ---
SPOKE WITH IN HOUSE PHARMACIST REGARDING SENNA/DOCUSATE MEDICATION NEEDING TO BE CHANGED FROM PO TO NGT ROUTE. I WAS UNABLE TO DO SO WHEN EDITING MEDICATION. SHE STATES THAT MEDICATION ORDER DOESN'T ALLOW ROUTE TO BE CHANGED BUT OK TO CRUSH. CAN MAKE A COMMENT TO GIVE THRU NGT.
--- NOTE | 2024-02-23 20:55 | PD.IMCONS ---
HPI Data of Consult Requesting Physician: Cheryl Savage DO Primary Care Provider: Physician No Primary/Family Consult Narrative Reason for consult: Abnormal CT AP showing possible pneumoperitoneum H/H 6.0/22.9 requiring blo History of present illness: 88 years old male who is very hard of hearing History from the chart review On the day of admission on 02/22/2024 patient called 911 because he was feeling weak Presenting hemoglobin hematocrit was 6.0 and 22.9 with a WBC count 11.3 and a prothrombin time 63.0 Patient was given Kcentra infusion CT scan of the abdomen pelvis done without contrast showed possible pneumoperitoneum and free fluid in the abdomen patient have History of gout essential hypertension DVT on warfarin 6 mg once a day Clinically patient has no hematemesis melena or bright red bleeding per rectum nausea vomiting or diarrhea He is actually constipated cc:: cc: Cheryl Savage DO Review of Systems Review of Systems Systems Reviewed: All systems reviewed, normal except as documented Past Medical History Surgical History OTHER SURGICAL HX: As in the history of present illness Meds Home Medications and Allergies Home Medications ?Medication ?Instructions ?Recorded ?Confirmed ?Type warfarin 6 mg tablet (Coumadin) 6 mg PO QWEEK 12/02/18 12/02/18 History isosorbide mononitrate 30 mg 30 mg PO QAM 02/22/24 02/22/24 History tablet,extended release 24 hr sennosides 8.6 mg-docusate sodium 1 tab PO BID PRN Constipation 02/22/24 02/22/24 History 50 mg tablet (Senexon-S) warfarin 6 mg tablet 6 mg PO QDAY 02/22/24 02/22/24 History Allergies Allergy/AdvReac Type Severity Reaction Status Date / Time aspirin AdvReac Unknown NOT Verified 12/11/20 11:07 ALLERGIC, BUT TAKES COUMADIN Exam Vital Signs Temp Pulse Resp BP Pulse Ox O2 Del Method O2 Flow Rate 97 F 109 H 23 H 104/67 97 Nasal Cannula 2 02/23/24 20:00 02/23/24 20:00 02/23/24 20:00 02/23/24 20:00 02/23/24 20:00 02/23/24 20:00 02/23/24 20:00 Constitutional Comments: Chronically ill-appearing Routine Respiratory Exam Comments: Normal to auscultation Routine Abdominal Exam Comments: Not distended hypoactive bowel sounds Results Labs 02/23/24 07:59 02/23/24 05:50 Labs: Short CBC 02/23/24 02/23/24 02/23/24 Range/Units 02:31 07:59 07:59 WBC 23.0 H D (3.8-10.6) Thou/mm3 Hgb 8.8 L Cancelled 9.1 L (13.5-16.0) g/dL Hct 29.4 L Cancelled (41.0-53.0) % Plt Count (140-440) Thou/mm3 02/23/24 Range/Units 07:59 WBC (3.8-10.6) Thou/mm3 Hgb (13.5-16.0) g/dL Hct 30.8 L (41.0-53.0) % Plt Count 233 D (140-440) Thou/mm3 BMP 02/23/24 05:50 Sodium 137 Potassium 3.6 Chloride 103 Carbon Dioxide 22.8 BUN 23 Creatinine 1.0 Glucose 135 H Calcium 8.2 L Liver Function 02/23/24 Range/Units 05:50 Total Bilirubin 2.7 H D (0.3-1.2) mg/dL AST 34 (0-34) U/L ALT 35 (10-49) U/L Alkaline Phosphatase 88 (46-116) U/L Albumin 3.3 L (3.4-4.8) gm/dL Assessment and Plan Additional Assessment & Plan Additional Plan: # Pneumoperitoneum with fluid intra-abdominal most likely sealed off perforation Not much in the NGT except small bilious amount Continue conservative management with IV antibiotics and NGT suction No need for surgical intervention at this time Although patient is anemic requiring blood transfusion I will hold off doing any invasive GI workup till patient improves
[2024-02-23] MEDS: AMIODARONE 360 MG IVPB 360 MG/200 ML BAG 16.667 MG IV (23:24)
[2024-02-24] VITALS (11 sets, daily range): BP systolic 88–132; BP diastolic 56–85; PULSE 89–126; RESP 16–96; TEMP 36.1–36.6; O2SAT 91–98; BMI 12.0
--- NOTE | 2024-02-24 04:57 | PC.NURSE ---
RECEIVED A CALL FROM TELE SITTER, PT ATTEMPTING TO REMOVE LINES. UPON ENTERING ROOM, PT HAD REMOVED NGT. NEW 16F NGT RIGHT NARE AT 60 CM. WILL OBTAIN VERIFICATION XRAY.
--- NOTE | 2024-02-24 05:01 | XR_ITS ---
Examination: AP chest single view Technique one AP portable semiupright chest single view Exam date and time: February 24, 2024 0528 hrs. Comparison February 22, 2024 Findings: Extensive free air beneath the right hemidiaphragm Mild enlargement cardiac contour with prominent vascular congestion Bibasilar pneumonia Significant osteopenia Impression: Pneumoperitoneum Bibasilar pneumonia Orogastric tube tip body of the stomach satisfactory position
[2024-02-24] MEDS: FUROSEMIDE INJ 10 MG/ML VIAL 2 ML 40 MG IVP (05:08)
[2024-02-24] MEDS: PIPER/TAZO INJ 3.375 GM in SODIUM CHLORIDE 0.9% (P) 50 ML IV ×3 (05:08→21:19)
[2024-02-24 06:02] LABS: Basophils # (Auto) 0.1 Thou/mm3 (0.0-0.2); Basophils % (Auto) 0 % (0-2.5); Eosinophils % (Auto) 0 % (0-10); Hematocrit 28.2 % (41.0-53.0); Immature Granulocytes % (Auto) 1 % (0-0); Immature Granulocytes Auto 0.22 Thou/mm3 (0.00-0.00); Immature Reticulocyte Fraction 23.2 % (2.3-13.4); Lymphocytes # (Auto) 0.9 Thou/mm3 (1.0-4.8); Lymphocytes % (Auto) 4 % (10-50); Mean Corpuscular HGB Conc 29.1 g/dl (31.0-37.0); Mean Corpuscular Hemoglobin 19.6 pg (25.0-35.0); Mean Corpuscular Volume 67 fL (80-100); Monocytes # (Auto) 1.8 Thou/mm3 (0.0-0.8); Monocytes % (Auto) 8 % (0-12); Neutrophils % (Auto) 87 % (37-80); Nucleated Red Blood Cell # 0.03 Thou/mm3 (0.00-0.00); Nucleated Red Blood Cell % 0 /100 WBC (0); Platelet Count 254 Thou/mm3 (140-440); RDW Standard Deviation 55.8 fL (35.1-43.9); Red Blood Count 4.19 Miln/mm3 (4.50-5.90); Reticulocyte Absolute Auto 81.7 Biln/L (25.0-75.0)
[2024-02-24 06:10] LABS: Hemoglobin 8.2 g/dL (13.5-16.0)
[2024-02-24 06:28] LABS: INR 1.5 (0.9-1.3); Partial Thromboplastin Time 44.1 Seconds (22.0-36.0)
[2024-02-24 06:51] LABS: Alanine Aminotransferase 14 U/L (10-49); Albumin, Serum 3.1 gm/dL (3.4-4.8); Albumin/Globulin Ratio 1.2 (1.2-2.2); Alkaline Phosphatase 95 U/L (46-116); Anion Gap 11 (7-16); Aspartate Amino Transferase 23 U/L (0-34); BUN/Creatinine Ratio 22 Ratio (12-20); Bilirubin,Total 2.3 mg/dL (0.3-1.2); Blood Urea Nitrogen 20 mg/dL (9-23); Calcium 8.1 mg/dL (8.3-10.6); Calcium (Corrected) 8.8 mg/dL (8.5-10.1); Carbon Dioxide 26.6 mMol/L (20.0-31.0); Chloride 100 mMol/L (98-107); Creatinine (Component) 0.9 mg/dL (0.6-1.3); Estimated Creatinine Clearance 65.7 mL/min (>60); Globulin 2.6 gm/dL (2.3-3.5); Glucose 127 mg/dL (74-106); Magnesium 1.3 mg/dL (1.6-2.6); Osmolality,Calculated 280 (275-295); Phosphorous 2.1 mg/dL (2.4-5.1); Sodium 138 mMol/L (136-145); Total Protein 5.7 gm/dL (5.7-8.2); eGFR > 60 See Note
[2024-02-24 07:03] LABS: Potassium 2.4 mMol/L (3.4-5.1)
[2024-02-24] MEDS: POTASSIUM CHL 10 mEq IVPB 10 MEQ/100 ML BAG 75 MEQ IV ×4 (08:05→12:22)
[2024-02-24] MEDS: Magnesium Sulfate 4 GM Ivpb 4 GM/50 ML BAG IV (08:19)
[2024-02-24] MEDS: PANTOPRAZOLE INJ 40 MG VIAL IVP ×2 (09:40→20:04)
[2024-02-24] MEDS: SENNA/DOCUSATE SOD 1 TAB TABLET PO ×2 (09:41→20:03)
[2024-02-24] MEDS: SODIUM CHLORIDE 0.9% 500 ML 500 ML 999 ML IV (12:34)
[2024-02-24] MEDS: ALBUMIN HUMAN 25% IVPB 12.5 GM/50 ML BTL IV (12:45)
--- NOTE | 2024-02-24 15:05 | ESPR_ITS ---
<Statement entered by Yue Walton MD - 02/24/24 18:18> Patient was seen and examined by me personally. I agree with most of the assessment and plan as discussed with the collector of internal revenue physician, and my attending, Dr. Savage. Will reeval ?perforation with CT a/p with gastrograffin. Electrolyte abnormalities noted and K & Mag repleted; repeat chem panel pending. Patient did have borderline hypotension for which amio gtt was discontinued and lasix held. Patient was given 500cc bolus and albumin with improvement in BP. Added midodrine prn. Will reevaluate and possibly remove NG tube in morning. Speech eval ordered. Yue Walton MD, PGY-3 Documentation for date of: 02/24/24 Subjective Subjective Interval history: Patient was seen and examined bedside. Denies any complaints and stated that his abdominal pain is getting better. Nasogastric tube suction showed decreased secretions. Patient was found to have hypotension around 1:15 PM for which patient received 500 cc of NS bolus, 12.5 g of albumin and Lasix was held. No further febrile episodes and patient did not have any complaints. On bedside swallow eval, patient was able to have ice chips but aspirating when water was given. Speech language evaluation was ordered for complete swallow evaluation. Blood pressures improved later to 98/56 mmHg. Labs still show elevated WBC 23, Hb 8.2 microcytic and hypochromic, INR is 1.5, potassium is 2.4, magnesium is 1.3. 4 g of IV magnesium is given. 40 mEq of IV potassium is given in the morning and 40 mill equivalents of p.o. potassium is given around 2:30 PM. Repeat BMP, magnesium was ordered. Will follow-up with the results. Dr. Gomez was consulted yesterday and recommended no procedures on him for now as there is risk of perforation and Dr. Do recommended no surgery for him as of now as patient is hemodynamically stable. Blood cultures and urine cultures showed no growth after 48 hours. Exam Vital Signs Temp Pulse Resp BP Pulse Ox O2 Del Method O2 Flow Rate 97.8 F 96 19 98/56 L 91 L Nasal Cannula 1 02/24/24 12:00 02/24/24 12:00 02/24/24 12:00 02/24/24 14:01 02/24/24 12:00 02/24/24 12:00 02/24/24 12:00 Narrative Exam General: Awake and in no acute distress. HEENT: Normocephalic, atraumatic, mucous membranes moist. Heart: Regular rate and rhythm, no murmurs. Lungs: Clear to auscultation with no crackles. Bilateral diffuse wheeze is heard Abdomen: Soft, distended with moderate tenderness throughout the abdomen, mainly in the right upper quadrant. But bowel sounds are noted Neurologic: Alert and oriented x3, no gross neurological deficit, and patient able to move all 4 extremities. Extremities: Bilateral pitting pedal edema is noted but decreasing. Skin: No rash or ecchymoses. Objective Labs 02/24/24 05:24 02/24/24 15:30 Labs: Laboratory Results - last 24 hr 02/23/24 02/24/24 18:44 05:24 WBC 23.0 H RBC 4.19 L Hgb 8.2 L Hct 28.2 L MCV 67 L MCH 19.6 L MCHC 29.1 L RDW Std Deviation 55.8 H Plt Count 254 Neut % (Auto) 87 H Lymph % (Auto) 4 L [place] % (Auto) 8 Eos % (Auto) 0 Baso % (Auto) 0 Neut # (Auto) 20.0 H Lymph # (Auto) 0.9 L [place] # (Auto) 1.8 H Eos # (Auto) 0.0 Baso # (Auto) 0.1 Immature Gran # (Auto) 0.22 H Absolute Nucleated RBC 0.03 H Immature Gran % 1 H Nucleated RBC % 0 Retic Count (auto) 2.0 H Absolute Retic 81.7 H Immature Retic Fraction 23.2 H Retic Hgb Content CHr 15.0 L PT 16.0 H D INR 1.5 H APTT 44.1 H D Sodium 138 Potassium 2.4 L* D Chloride 100 Carbon Dioxide 26.6 Anion Gap 11 BUN 20 Creatinine 0.9 Estim Creat Clear Calc 65.7 eGFR > 60 BUN/Creatinine Ratio 22 H Glucose 127 H Calculated Osmolality 280 Calcium 8.1 L Corrected Calcium 8.8 Phosphorus 2.1 L Magnesium 1.3 L Ferritin 40 Total Bilirubin 2.3 H AST 23 ALT 14 Alkaline Phosphatase 95 Lactate Dehydrogenase 207 Total Protein 5.7 Albumin 3.1 L Globulin 2.6 Albumin/Globulin Ratio 1.2 Quality Measures Quality Measures none Advance care planning discussed with:: patient and child Assessment & Plan Assessment Current Active Medications: Generic Name Dose Route Start Last Admin Trade Name Freq PRN Reason Stop Dose Admin Acetaminophen 650 mg 02/23/24 20:28 Acetaminophen Lyly 325 Mg/10 Ml Udc GT 03/24/24 20:27 Q6H PRN Fever >101.5 Acetaminophen 650 mg 02/23/24 20:29 Acetaminophen Lyly 325 Mg/10 Ml Udc GT 03/24/24 20:28 Q6H PRN PAIN SCALE 1-3 (mild Furosemide 40 mg 02/23/24 10:30 02/24/24 05:08 Furosemide Inj 10 Mg/Ml Vial 2 Ml IVP 03/24/24 10:29 40 mg BIDD JOE Administration Piperacillin Sod/Tazobactam 50 mls @ 12.5 mls/hr 02/22/24 18:15 02/24/24 14:01 Sod 3.375 gm/ Sodium Chloride IV 02/29/24 18:14 12.5 mls/hr Q8HR JOE Administration Amiodarone HCl/Dextrose 360 mg in 200 mls @ 16.667 mls/hr 02/23/24 22:33 02/23/24 23:24 Nexterone Ivpb IV 16.667 mls/hr .Q12H JOE Administration Ondansetron HCl 4 mg 02/22/24 04:09 Ondansetron Inj 2 Mg/Ml Inj 2 Ml IV 03/23/24 04:08 Q6H PRN NAUSEA OR VOMITING Protocol Oxycodone/Acetaminophen 1 tab 02/23/24 20:25 Oxycodone/Apap 5/325 Tablet GT 02/27/24 04:08 Q6H PRN PAIN SCALE 4-6 (Moderate Pantoprazole Sodium 40 mg 02/22/24 09:00 02/24/24 09:40 Pantoprazole Inj 40 Mg Vial IVP 03/23/24 08:59 40 mg Q12HR JOE Administration Sennosides 1 tab 02/23/24 20:29 02/24/24 09:41 Senna/Docusate Sod 1 Tab Tablet PO 03/23/24 08:59 1 tab BID JOE Administration Protocol Plan The patient is a 88-year-old male with significant past medical history of gout, hypertension, DVT currently on warfarin who presented to our ED with chief complaint of generalized weakness he is currently being treated for acute symptomatic blood loss anemia secondary to severe Coumadin coagulopathy. # New onset atrial fibrillation with rapid ventricular rate # In the setting of ongoing sepsis -Around 5:00 PM on 02/23/2024 patient was noted to have atrial fibrillation with rapid ventricular rate -Started on amiodarone as per protocol -Held heparin as patient INR is 2.1 -Echo is done but read is pending, will follow -Started Lasix 40 Mg IV twice daily in view of fluid overload on 02/23/2024 -On 02/24/2024 around 1:30 PM patient was found to have blood pressure of 90/60 mmHg on routine check but patient did not have any complaints -So amiodarone drip was discontinued and Lasix was withheld, 500 cc of NS and 12.5 g of albumin was given. Blood pressure improved to 98/56 mmHg. # ?Bowel perforation # Pneumoperitoneum #? Peritonitis secondary to perforation -On examination, severe tenderness noted on superficial palpation mainly on the right upper quadrant. -Chest x-ray showed air under diaphragm -Inserted NG tube and started IV Zosyn. -CT abdomen/pelvis report came back as pneumoperitoneum and immediately Dr. Do was consulted. -Dr. Do recommended conservative management for now as patient is hemodynamically stable. -CBC as of 02/24/2024 is 23K Plan -Still no bowel movement noted but on examination, bowel sounds are heard -Dr. Gomez was consulted and and recommended no procedures on the patient in view of risk of perforation. -Dr. Do was following and recommended conservative management with repeat CT abdomen tomorrow -As patient is not complaining of any pain, not on any pain medications. -Patient is able to tolerate ice chips but aspirating on water on bedside swallow eval -Speech language evaluation was ordered -CT abdomen with contrast is ordered #Acute symptomatic blood loss anemia 2/2 #Severe Coumadin coagulopathy Patient is taking warfarin for long time for DVT, dose and frequency could not be figured out as patient is very hard of hearing and poor historian Etiology of blood loss unknown, but likely differential is acute GI bleed Presented with hemoglobin 6.0, hematocrit 22.9, PT greater than 63.0, INR out of range and APTT 58.3 Received 1 unit of PRBC in the ED Received 1 dose of vitamin K 10 Mg subcutaneous Received Kcentra 4950 units for Coumadin reversal as INR is out of range Plan -Received total 2 packs of RBC, 1 Pack of FFP, 4950 units of Kcentra, 2 doses of vitamin K 10 Mg, a dose of 40 Mg Lasix on the day of admission -Repeat INR on 02/23/2024 is 2.1 > 12/3, INR is 1.5 #H/O Hypertension Currently patient is hemodynamically stable. -Monitor vitals #Hypothermia, resolved Presented with temperature of 96.2 and patient was placed on warmer -Currently temperature is stable #Leukocytosis -Likely due to perforation -Daily CBC monitoring Health maintenance: Dispo: medtele Diet: N.p.o. for now DVT prophylaxis: SCDs CODE STATUS: DNR/DNI Patient plan of care was discussed with the attending physician, Dr. Savage and senior resident Dr. Anton Gould, PGY1 Attending Provider Attestation/Addendum I, Cheryl Savage, DO, attest that I was physically present for the vela portions of the service and evaluated the patient with the resident and I reviewed and discussed the case with the resident and agree with the resident's findings and plans of care as documented above Patient seen and evaluated this AM. Son at bedside. Patient appears unchanged. He is laying comfortably in bed. Abdomen appears less distended and is soft on palpation. There is tenderness in the right upper and lower quadrants. Patient's son was understanding of patient's current condition and finding of pneumoperitoneum possibly involving sealed off perforated viscous. Son was agreeable to conservative management at this time. Patient became hypotensive around 1:30pm with systolic BP in the 70s. Patient denied any lightheadedness, chest pain or shortness of breath. BP improved with 500mL bolus of NS and albumin. Lasix and amiodarone have since been held. Patient requested orange juice, but has been unable to safely swallow. Will have ST see patient for swallow evaluation. Discussed with radiologist the possibility of pseudopneumoperitoneum. It was suggested to repeat study with oral gastrograffin. Discussed this with surgeon, who was concerned for oral contrast to worsen perforation. Decision was made to repeat CT with IV contrast to reevalute pneumoperitoneum and possible sealed off collections. Will continue with gentle IV fluids, antibiotics and monitor volume status closely. Will f/u with surgery recs. H/H otherwise stable.
--- NOTE | 2024-02-24 15:16 | ESPR_ITS ---
Documentation for date of: 02/24/24 Subjective Subjective Brief History: 88M with HTN, gout, DVT in remote past with IVC filter and on warfarin who called 911 late last night due to weakness. He was found to have Hgb 6, Wbc 11.3 and PTT 58. Pt has been transfused with appropriate response, however due to abdominal pain underwent CT AP which shows concern for pneumoperitoneum. Pt has remained afebrile with normal vital signs PMH: HTN, gout, DVT in remote past PSHx: IVC filter Meds: includes warfarin Allergies: NKDA Narrative: Transferred to telemetry for A-fib, was on amiodarone but now stopped due to hy potension, patient reports feeling the same denies any abdominal pain. Has had minimal NG output, has not yet had a bowel movement, WBC stable at 23 Exam Vital Signs Temp Pulse Resp BP Pulse Ox O2 Del Method O2 Flow Rate 97.8 F 96 19 98/56 L 91 L Nasal Cannula 1 02/24/24 12:00 02/24/24 12:00 02/24/24 12:00 02/24/24 14:01 02/24/24 12:00 02/24/24 12:00 02/24/24 12:00 Constitutional Constitutional: no acute distress Routine Respiratory Exam Respiratory: Present no resp distress Routine Abdominal Exam Abdominal: Present soft; Absent tenderness or distended Results Results: Laboratory Laboratory results: results reviewed Assessment & Plan Plan 88M with HTN, gout, remote DVT on warfarin who presented with weakness and findings of anemia, additionally with abdominal pain and possible pneumoperitoneum on CT. As pt is clinically well with normal vital signs, minimal tenderness and improved lactate I explained to his son that he may have pseudo-pneumoperitoneum (such as bowel above the liver) or that he did have a perforated viscus which has sealed itself. In either case it does not seem that surgery would lead to an improvement in his clinical status. Pt's son expressed understanding and is agreeable to watchful waiting Continue abx Will follow
[2024-02-24] MEDS: POTASSIUM CHLORIDE 10% 20 MEQ/15 ML UDC 40 MEQ GT ×2 (15:36→16:59)
--- NOTE | 2024-02-24 15:40 | XR_ITS ---
Examination: CT abdomen with intravenous contrast CT pelvis with intravenous contrast 2-D coronal reconstructions 2-D sagittal reconstructions Date and time of exam:February 24, 2024 1724 hrs. Comparison February 22, 2024. Abdominal pain, pneumoperitoneum on CT abdomen pelvis February 22, 2024 CTDI: vol (mGy) 10.7 DLP: (mGycm) 77.9 Technique: Multiple axial sections of the abdomen and pelvis have been obtained. 64 slice high-resolution scanner used. 3 mm axial sections have been obtained, post intravenous injection 60 cc [id number] 2-D sagittal, coronal reconstructions obtained. Low dose protocols were performed. One or more of the following dose reduction techniques were used; automated exposure control, adjustment of the mA and/or KV according to patient size, use of iterative reconstruction technique. Findings: Extensive pneumoperitoneum again noted Free fluid in the abdomen especially around the liver No gallstones No pancreatic mass Normal adrenal glands No hydronephrosis Aortic calcification no aneurysmal dilatation No pericecal inflammatory change No diverticulitis Free fluid in the pelvis Contracted urinary bladder Impression: Extensive pneumoperitoneum again noted Much of the free air droplets are adjacent to the colon I actually requested oral Gastrografin with this study which was not administered Recommend Gastrografin upper GI series and small bowel follow-through in the a.m.
[2024-02-24 16:31] LABS: Anion Gap 10 (7-16); BUN/Creatinine Ratio 21 Ratio (12-20); Blood Urea Nitrogen 19 mg/dL (9-23); Calcium 8.1 mg/dL (8.3-10.6); Chloride 101 mMol/L (98-107); Creatinine (Component) 0.9 mg/dL (0.6-1.3); Estimated Creatinine Clearance 65.7 mL/min (>60); Glucose 113 mg/dL (74-106); Magnesium 1.8 mg/dL (1.6-2.6); Osmolality,Calculated 278 (275-295); Sodium 138 mMol/L (136-145); eGFR > 60 See Note
[2024-02-24 16:34] LABS: Potassium 2.4 mMol/L (3.4-5.1)
[2024-02-24] MEDS: IRON SUCROSE CPLX INJ 20 MG/ML VIAL 5 ML 200 MG IVP (18:02)
[2024-02-24] MEDS: POTASSIUM CHL 10 mEq IVPB 10 MEQ/100 ML BAG 70 MEQ IV ×4 (18:04→23:41)
[2024-02-24] MEDS: SODIUM CHLORIDE 0.9% 500 ML 500 ML 50 ML IV (19:32)
--- NOTE | 2024-02-24 21:28 | ESPR_ITS ---
Documentation for date of: 02/24/24 Subjective Subjective Interval history: Clinically stable Not much in the NGT Abdomen soft with positive bowel sounds WBC count stable at 23.0 and not going up Exam Vital Signs Temp Pulse Resp BP Pulse Ox O2 Del Method O2 Flow Rate 97.3 F 126 H 18 100/65 95 Nasal Cannula 1 02/24/24 20:00 02/24/24 20:00 02/24/24 20:00 02/24/24 20:00 02/24/24 20:00 02/24/24 20:00 02/24/24 20:00 Objective Labs 02/24/24 05:24 02/24/24 15:30 Labs: Laboratory Results - last 24 hr 02/24/24 02/24/24 05:24 15:30 WBC 23.0 H RBC 4.19 L Hgb 8.2 L Hct 28.2 L MCV 67 L MCH 19.6 L MCHC 29.1 L RDW Std Deviation 55.8 H Plt Count 254 Neut % (Auto) 87 H Lymph % (Auto) 4 L [place] % (Auto) 8 Eos % (Auto) 0 Baso % (Auto) 0 Neut # (Auto) 20.0 H Lymph # (Auto) 0.9 L [place] # (Auto) 1.8 H Eos # (Auto) 0.0 Baso # (Auto) 0.1 Immature Gran # (Auto) 0.22 H Absolute Nucleated RBC 0.03 H Immature Gran % 1 H Nucleated RBC % 0 Retic Count (auto) 2.0 H Absolute Retic 81.7 H Immature Retic Fraction 23.2 H Retic Hgb Content CHr 15.0 L PT 16.0 H D INR 1.5 H APTT 44.1 H D Sodium 138 138 Potassium 2.4 L* D 2.4 L* Chloride 100 101 Carbon Dioxide 26.6 27.0 Anion Gap 11 10 BUN 20 19 Creatinine 0.9 0.9 Estim Creat Clear Calc 65.7 65.7 eGFR > 60 > 60 BUN/Creatinine Ratio 22 H 21 H Glucose 127 H 113 H Calculated Osmolality 280 278 Calcium 8.1 L 8.1 L Corrected Calcium 8.8 Phosphorus 2.1 L Magnesium 1.3 L 1.8 Total Bilirubin 2.3 H AST 23 ALT 14 Alkaline Phosphatase 95 Total Protein 5.7 Albumin 3.1 L Globulin 2.6 Albumin/Globulin Ratio 1.2 Impressions Impression: # Pneumoperitoneum due to pseudo perforation Continue conservative management Assessment & Plan A&P Narrative # Pneumoperitoneum with fluid intra-abdominal most likely sealed off perforation Not much in the NGT except small bilious amount Continue conservative management with IV antibiotics and NGT suction No need for surgical intervention at this time Although patient is anemic requiring blood transfusion I will hold off doing any invasive GI workup till patient improves Time Spent With Patient Time: Total time spent is greater than 50% in coordination of care (as documented) at patient's floor/unit and/or counseling patient:
[2024-02-24 22:14] LABS: Potassium 3.5 mMol/L (3.4-5.1)
[2024-02-25] VITALS (12 sets, daily range): BP systolic 104–127; BP diastolic 63–85; PULSE 87–121; RESP 17–90; TEMP 36–36.4; O2SAT 93–97; BMI 30.7
[2024-02-25] MEDS: PIPER/TAZO INJ 3.375 GM in SODIUM CHLORIDE 0.9% (P) 50 ML IV (05:17)
[2024-02-25 05:40] LABS: Lactate (Lactic Acid) 1.5 mMol/L (0.4-2.0)
[2024-02-25 05:45] LABS: Basophils % (Auto) 0 % (0-2.5); Eosinophils % (Auto) 0 % (0-10); Hematocrit 30.5 % (41.0-53.0); Immature Granulocytes % (Auto) 0 % (0-0); Lymphocytes # (Auto) 1.2 Thou/mm3 (1.0-4.8); Lymphocytes % (Auto) 5 % (10-50); Mean Corpuscular HGB Conc 28.5 g/dl (31.0-37.0); Mean Corpuscular Volume 67 fL (80-100); Monocytes # (Auto) 1.6 Thou/mm3 (0.0-0.8); Monocytes % (Auto) 7 % (0-12); Neutrophils # (Auto) 21.5 Thou/mm3 (1.8-7.7); Neutrophils % (Auto) 88 % (37-80); Nucleated Red Blood Cell % 0 /100 WBC (0); Platelet Count 148 Thou/mm3 (140-440); Red Blood Count 4.57 Miln/mm3 (4.50-5.90)
[2024-02-25 05:55] LABS: Hemoglobin 8.7 g/dL (13.5-16.0); White Blood Count 24.5 Thou/mm3 (3.8-10.6)
[2024-02-25 06:05] LABS: INR 1.6 (0.9-1.3); Partial Thromboplastin Time 49.4 Seconds (22.0-36.0); Prothrombin Time 16.7 Seconds (9.0-12.2)
[2024-02-25 06:46] LABS: Anion Gap 8 (7-16); BUN/Creatinine Ratio 23 Ratio (12-20); Blood Urea Nitrogen 21 mg/dL (9-23); Calcium 8.3 mg/dL (8.3-10.6); Carbon Dioxide 28.7 mMol/L (20.0-31.0); Chloride 102 mMol/L (98-107); Creatinine (Component) 0.9 mg/dL (0.6-1.3); Estimated Creatinine Clearance 65.1 mL/min (>60); Glucose 122 mg/dL (74-106); Osmolality,Calculated 281 (275-295); Phosphorous 1.9 mg/dL (2.4-5.1); Potassium 3.1 mMol/L (3.4-5.1); Procalcitonin 1.71 ng/ml (0.0-0.49); Sodium 139 mMol/L (136-145); eGFR > 60 See Note
--- NOTE | 2024-02-25 09:26 | PCS.ST ---
Swallow Eval completed. See report for details. Presbyphagia with mild pharyngeal weakness. Needs modified diet and precautions. ST will follow.
[2024-02-25] MEDS: IRON SUCROSE CPLX INJ 20 MG/ML VIAL 5 ML 200 MG IVP (09:34)
[2024-02-25] MEDS: PANTOPRAZOLE INJ 40 MG VIAL IVP (09:35)
[2024-02-25] MEDS: AMIODARONE HCL 200 MG TABLET PO ×2 (10:28→20:19)
--- NOTE | 2024-02-25 10:50 | ESPR_ITS ---
<Statement entered by Yue Walton MD - 02/25/24 19:06> Patient was seen and examined by me personally. I agree with most of the assessment and plan as discussed with the rn intern physician, and my attending, Dr. Orellana. Will DC NG tube and give ice chips, per gen surg recs. WBC increasing. CT A/P continues to show pneumoperitoneum. Will discuss case with gen surg in a.m., but surgery is not recommended at this time. Resumed amiodarone p.o. for afib; BP stable with prn midodrine. Yue Walton MD, PGY-3 Documentation for date of: 02/25/24 Subjective Subjective Interval history: Patient was seen and examined by the bedside. Stated that he is feeling better and abdominal pain is decreasing. Swallow evaluation is done this morning and recommended dysphagia 3 diet. No bowel movements since the time of admission and denied passage of flatus. Vitals are stable except for tachycardia heart rate around 100-110 and patient is still in A-fib. On physical examination abdomen is soft and mild tenderness noted on palpation. Labs showed elevated WBC 24.5, Hb 8.7, INR 1.6, potassium 3.1, sodium 139, bicarb 28.7, BUN 21, phosphorus 1.9, magnesium 1.7, Pro-Vladimir 1.7. Potassium phosphate supplementation is given. NG tube is discontinued patient is still n.p.o. except for ice chips and medications as recommended by Dr. Do. Per Dr. Do patient does not need any surgery for now in view of stable vitals and no symptoms from the patient. Resumed oral amiodarone as the patient is still in A-fib with RVR and blood pressures are within normal limits. Exam Vital Signs Temp Pulse Resp BP Pulse Ox O2 Del Method O2 Flow Rate 97.5 F 121 H 17 111/73 95 Nasal Cannula 1 02/25/24 07:53 02/25/24 10:28 02/25/24 08:33 02/25/24 10:28 02/25/24 08:33 02/25/24 07:53 02/25/24 08:33 Narrative Exam General: Awake and in no acute distress. HEENT: Normocephalic, atraumatic, mucous membranes moist. Heart: Regular rate and rhythm, no murmurs. Lungs: Clear to auscultation with no crackles. Bilateral diffuse wheeze is heard Abdomen: Soft, distended with moderate tenderness throughout the abdomen, mainly in the right upper quadrant. But bowel sounds are noted Neurologic: Alert and oriented x3, no gross neurological deficit, and patient able to move all 4 extremities. Extremities: Bilateral pitting pedal edema is noted but decreasing. Skin: No rash or ecchymoses. Objective Labs 02/26/24 07:30 02/25/24 05:10 Labs: Laboratory Results - last 24 hr 02/24/24 02/24/24 02/25/24 15:30 21:44 05:10 WBC 24.5 H RBC 4.57 Hgb 8.7 L Hct 30.5 L MCV 67 L MCH 19.0 L MCHC 28.5 L RDW Std Deviation 57.0 H Plt Count 148 D Neut % (Auto) 88 H Lymph % (Auto) 5 L [place] % (Auto) 7 Eos % (Auto) 0 Baso % (Auto) 0 Neut # (Auto) 21.5 H Lymph # (Auto) 1.2 [place] # (Auto) 1.6 H Eos # (Auto) 0.0 Baso # (Auto) 0.0 Immature Gran # (Auto) 0.10 H Absolute Nucleated RBC 0.00 Immature Gran % 0 Nucleated RBC % 0 PT 16.7 H INR 1.6 H APTT 49.4 H Sodium 138 139 Potassium 2.4 L* 3.5 D 3.1 L Chloride 101 102 Carbon Dioxide 27.0 28.7 Anion Gap 10 8 BUN 19 21 Creatinine 0.9 0.9 Estim Creat Clear Calc 65.7 65.1 eGFR > 60 > 60 BUN/Creatinine Ratio 21 H 23 H Glucose 113 H 122 H Calculated Osmolality 278 281 Lactic Acid 1.5 Calcium 8.1 L 8.3 Phosphorus 1.9 L Magnesium 1.8 Procalcitonin 1.71 H Quality Measures Quality Measures none Advance care planning discussed with:: patient and child Assessment & Plan Assessment Current Active Medications: Generic Name Dose Route Start Last Admin Trade Name Freq PRN Reason Stop Dose Admin Acetaminophen 650 mg 02/23/24 20:28 Acetaminophen Lyly 325 Mg/10 Ml Udc GT 03/24/24 20:27 Q6H PRN Fever >101.5 Acetaminophen 650 mg 02/23/24 20:29 Acetaminophen Lyly 325 Mg/10 Ml Udc GT 03/24/24 20:28 Q6H PRN PAIN SCALE 1-3 (mild Amiodarone HCl 200 mg 02/25/24 10:15 02/25/24 10:28 Amiodarone Hcl 200 Mg Tablet PO 03/26/24 10:14 200 mg BID JOE Administration Furosemide 40 mg 02/23/24 10:30 02/24/24 05:08 Furosemide Inj 10 Mg/Ml Vial 2 Ml IVP 03/24/24 10:29 40 mg BIDD JOE Administration Potassium Phosphate 15 mmol in 250 mls @ 62.5 mls/hr 02/25/24 08:29 Pot Phos 15 Mmol In Ns 250 Ml IV 02/25/24 12:28 X1 ONE Piperacillin/Tazobactam/Dextrose 50 mls @ 12.5 mls/hr 02/25/24 14:00 Zosyn IV 02/29/24 18:14 Q8HR JOE Iron Sucrose 200 mg 02/24/24 16:45 02/25/24 09:34 Iron Sucrose Cplx Inj 20 Mg/Ml Vial 5 Ml IVP 02/28/24 16:44 200 mg DAILY JOE Administration Midodrine 5 mg 02/24/24 16:48 Midodrine 5 Mg Tablet PO 03/25/24 21:59 TID PRN SBP <90 Ondansetron HCl 4 mg 02/22/24 04:09 Ondansetron Inj 2 Mg/Ml Inj 2 Ml IV 03/23/24 04:08 Q6H PRN NAUSEA OR VOMITING Protocol Oxycodone/Acetaminophen 1 tab 02/23/24 20:25 Oxycodone/Apap 5/325 Tablet GT 02/27/24 04:08 Q6H PRN PAIN SCALE 4-6 (Moderate Pantoprazole Sodium 40 mg 02/22/24 09:00 02/25/24 09:35 Pantoprazole Inj 40 Mg Vial IVP 03/23/24 08:59 40 mg Q12HR JOE Administration Sennosides 1 tab 02/23/24 20:29 02/25/24 09:28 Senna/Docusate Sod 1 Tab Tablet PO 03/23/24 08:59 Not Given BID JOE Protocol Plan The patient is a 88-year-old male with significant past medical history of gout, hypertension, DVT currently on warfarin who presented to our ED with chief complaint of generalized weakness he is currently being treated for acute symptomatic blood loss anemia secondary to severe Coumadin coagulopathy. # New onset atrial fibrillation with rapid ventricular rate # In the setting of ongoing sepsis -Around 5:00 PM on 02/23/2024 patient was noted to have atrial fibrillation with rapid ventricular rate -Started on amiodarone as per protocol -Held heparin as patient INR is 2.1 -Echo is done but read is pending, will follow -Started Lasix 40 Mg IV twice daily in view of fluid overload on 02/23/2024 -On 02/24/2024 around 1:30 PM patient was found to have blood pressure of 90/60 mmHg on routine check but patient did not have any complaints So amiodarone drip was discontinued and Lasix was withheld, 500 cc of NS and 12.5 g of albumin was given. Blood pressure improved to 98/56 mmHg. Plan -On 02/25/2024, heart rate is around 112 and patient is still in A-fib with blood pressure within normal limits, so started on amiodarone 200 Mg twice daily. -Withheld Lasix as patient does not appear to be fluid overloaded -If the patient's blood pressure permits and still tachycardic, will add metoprolol. # ?Bowel perforation, CT # Pneumoperitoneum #? Peritonitis secondary to perforation -On examination, severe tenderness noted on superficial palpation mainly on the right upper quadrant. -Chest x-ray showed air under diaphragm -CT abdomen/pelvis report came back as pneumoperitoneum and immediately Dr. Do was consulted. -CBC as of 02/24/2024 is 23K--> 12, 24.5 Plan -Still no bowel movement noted but on examination, bowel sounds are heard -CT abdomen done on 02/24/2024 still showed pneumoperitoneum which is worsening -Dr. Gomez was consulted and and recommended no procedures on the patient in view of risk of perforation. -Dr. Do was following and recommended conservative management -As patient is not complaining of any pain, not on any pain medications. -Speech language evaluation was ordered and recommended dysphagia 3 diet -Discontinued the NG tube and still kept patient on n.p.o. except for ice chips and medications as recommended by Dr. Do -Will continue Zosyn #Acute symptomatic blood loss anemia 2/2 #Severe Coumadin coagulopathy Patient is taking warfarin for long time for DVT, dose and frequency could not be figured out as patient is very hard of hearing and poor historian Etiology of blood loss unknown, but likely differential is acute GI bleed Presented with hemoglobin 6.0, hematocrit 22.9, PT greater than 63.0, INR out of range and APTT 58.3 Received 1 unit of PRBC in the ED Received 1 dose of vitamin K 10 Mg subcutaneous Received Kcentra 4950 units for Coumadin reversal as INR is out of range Plan -Received total 2 packs of RBC, 1 Pack of FFP, 4950 units of Kcentra, 2 doses of vitamin K 10 Mg, a dose of 40 Mg Lasix on the day of admission -Repeat INR on 02/23/2024 is 2.1 > 12/3, INR is 1.5 > 12/4, INR is 1.6 # Hypokalemia Likely due to continuous gastric suction and decreased oral intake -Potassium on 02/25/2024 is 3.1 --- potassium phosphate IV is given -Will continue to monitor the electrolytes. #H/O Hypertension Currently patient is hemodynamically stable. -Monitor vitals with #Hypothermia, resolved Presented with temperature of 96.2 and patient was placed on warmer -Currently temperature is stable # History of BPH -On tamsulosin 0.4 Mg p.o. daily at home Plan -As the blood pressures are labile, will resume tamsulosin once the blood pressures are stable # History of DVT, resolved -Patient was started on warfarin and IVC filter is placed almost 20 years ago -Patient was offered removal of IVC filter 6 years ago but patient denied the procedure -Patient continued to be on warfarin since then and found to have supratherapeutic INR at the time of admission #Leukocytosis -Likely due to perforation -Daily CBC monitoring Health maintenance: Dispo: medtele Diet: N.p.o. except for ice chips and medications. DVT prophylaxis: SCDs CODE STATUS: DNR/DNI Patient plan of care was discussed with the attending physician, Dr. Orellana and senior resident Dr. Anton Gould, PGY1 Attending Provider Attestation/Addendum I reviewed labs, imaging, EKG, home medications and prior available records. Face to face evaluation was performed by me. I have personally examined the patient and discussed assessment and plan with the IM team. I reviewed the resident note and agree with the plan with exceptions as below. Pneumoperitoneum: CT scan showed extensive pneumoperitoneum possibly from colonic perforation. Patient has minimal symptoms. Discussed with general surgery: Started the patient on clear liquid diet and advance as tolerated. Removed NG tube. Continue IV Zosyn. Management of nausea/pain as needed. Atrial fibrillation with RVR: He is borderline tachycardic. Started p.o. amiodarone. Anticoagulation held due to anticipated surgery.
[2024-02-25] MEDS: POT PHOS 15 mMol in NS 250 ML 15 MMOL/250 ML BAG 62.5 MMOL IV (12:35)
--- NOTE | 2024-02-25 12:43 | ESPR_ITS ---
Documentation for date of: 02/25/24 Subjective Subjective Brief History: 88M with HTN, gout, DVT in remote past with IVC filter and on warfarin who called 911 late last night due to weakness. He was found to have Hgb 6, Wbc 11.3 and PTT 58. Pt has been transfused with appropriate response, however due to abdominal pain underwent CT AP which shows concern for pneumoperitoneum. Pt has remained afebrile with normal vital signs PMH: HTN, gout, DVT in remote past PSHx: IVC filter Meds: includes warfarin Allergies: NKDA Narrative: Yesterday pt underwent CT AP showing increase in pneumoperitoneum, no fluid col lection. He has remained afebrile, with no pain or nausea and minimal NG output, WBC 24 from 23 Exam Vital Signs Temp Pulse Resp BP Pulse Ox O2 Del Method O2 Flow Rate 96.8 F 94 24 H 119/66 96 Nasal Cannula 1 02/25/24 11:54 02/25/24 11:54 02/25/24 11:54 02/25/24 11:54 02/25/24 11:54 02/25/24 11:54 02/25/24 11:54 Constitutional Constitutional: no acute distress Routine Respiratory Exam Respiratory: Present no resp distress Routine Abdominal Exam Abdominal: Present soft; Absent tenderness or distended Results Results: Laboratory Laboratory results: results reviewed Results: Imaging CT scan - abdomen: report reviewed and image reviewed Assessment & Plan Plan 88M with HTN, gout, remote DVT on warfarin who presented with weakness and findings of anemia, additionally with abdominal pain and pneumoperitoneum on CT. Pt has remained overall clinically well, with no pain or fever, and has consistently had a benign abdominal exam indicating that surgery would not likely improve his outcome. On CT there is also no indication of inflammation along the GI tract as a cause for this pneumoperitoneum; it is possibly related to his history of COPD DC NG CLD Continue abx Encourage PT
[2024-02-25] MEDS: PIPER/TAZO 3.375 GM 50 ML IV ×2 (13:23→21:49)
[2024-02-25 13:41] LABS: Magnesium 1.7 mg/dL (1.6-2.6)
[2024-02-25] MEDS: POTASSIUM CHL 10 mEq IVPB 10 MEQ/100 ML BAG 75 MEQ IV ×4 (15:58→20:14)
--- NOTE | 2024-02-25 20:16 | PD.IMPROG ---
Documentation for date of: 02/25/24 Subjective Subjective Interval history: WBC count up to 24.5 Abdominal examination absolutely benign with active bowel sounds Although there is pneumoperitoneum but no indications of an acute abdomen NGT pulled out as there was not much we will watch Exam Vital Signs Temp Pulse Resp BP Pulse Ox O2 Del Method O2 Flow Rate 96.9 F 97 21 H 112/63 97 Nasal Cannula 1 02/25/24 16:00 02/25/24 16:00 02/25/24 16:00 02/25/24 16:00 02/25/24 16:00 02/25/24 16:00 02/25/24 16:00 Objective Labs 02/25/24 05:10 02/25/24 05:10 Labs: Laboratory Results - last 24 hr 02/24/24 02/25/24 21:44 05:10 WBC 24.5 H RBC 4.57 Hgb 8.7 L Hct 30.5 L MCV 67 L MCH 19.0 L MCHC 28.5 L RDW Std Deviation 57.0 H Plt Count 148 D Neut % (Auto) 88 H Lymph % (Auto) 5 L [place] % (Auto) 7 Eos % (Auto) 0 Baso % (Auto) 0 Neut # (Auto) 21.5 H Lymph # (Auto) 1.2 [place] # (Auto) 1.6 H Eos # (Auto) 0.0 Baso # (Auto) 0.0 Immature Gran # (Auto) 0.10 H Absolute Nucleated RBC 0.00 Immature Gran % 0 Nucleated RBC % 0 PT 16.7 H INR 1.6 H APTT 49.4 H Sodium 139 Potassium 3.5 D 3.1 L Chloride 102 Carbon Dioxide 28.7 Anion Gap 8 BUN 21 Creatinine 0.9 Estim Creat Clear Calc 65.1 eGFR > 60 BUN/Creatinine Ratio 23 H Glucose 122 H Calculated Osmolality 281 Lactic Acid 1.5 Calcium 8.3 Phosphorus 1.9 L Magnesium 1.7 Procalcitonin 1.71 H Impressions Impression: # Pneumoperitoneum most likely due to perforated viscus with sealed off perforation Patient clinically doing very well Continue current management No indication for surgical intervention Assessment & Plan A&P Narrative # Pneumoperitoneum with fluid intra-abdominal most likely sealed off perforation Not much in the NGT except small bilious amount Continue conservative management with IV antibiotics and NGT suction No need for surgical intervention at this time Although patient is anemic requiring blood transfusion I will hold off doing any invasive GI workup till patient improves Time Spent With Patient Time: Total time spent is greater than 50% in coordination of care (as documented) at patient's floor/unit and/or counseling patient:
[2024-02-25] MEDS: SENNA/DOCUSATE SOD 1 TAB TABLET PO (20:19)
[2024-02-25] MEDS: LANSOPRAZOLE 30 MG TAB.RAP.DR GT (20:20)
[2024-02-26] VITALS (9 sets, daily range): BP systolic 101–125; BP diastolic 69–86; PULSE 93–129; RESP 19–24; TEMP 36.2–36.6; O2SAT 93–99; BMI 31.1
[2024-02-26] MEDS: PIPER/TAZO 3.375 GM 50 ML IV ×3 (05:38→21:22)
[2024-02-26 07:45] LABS: Basophils % (Auto) 0 % (0-2.5); Eosinophils % (Auto) 0 % (0-10); Hematocrit 27.6 % (41.0-53.0); Immature Granulocytes % (Auto) 1 % (0-0); Immature Granulocytes Auto 0.18 Thou/mm3 (0.00-0.00); Lymphocytes # (Auto) 1.3 Thou/mm3 (1.0-4.8); Lymphocytes % (Auto) 6 % (10-50); Mean Corpuscular HGB Conc 28.6 g/dl (31.0-37.0); Mean Corpuscular Volume 66 fL (80-100); Monocytes # (Auto) 1.8 Thou/mm3 (0.0-0.8); Monocytes % (Auto) 8 % (0-12); Neutrophils # (Auto) 18.9 Thou/mm3 (1.8-7.7); Neutrophils % (Auto) 85 % (37-80); Nucleated Red Blood Cell # 0.02 Thou/mm3 (0.00-0.00); Nucleated Red Blood Cell % 0 /100 WBC (0); Platelet Count 157 Thou/mm3 (140-440); RDW Standard Deviation 57.4 fL (35.1-43.9); Red Blood Count 4.16 Miln/mm3 (4.50-5.90); White Blood Count 22.2 Thou/mm3 (3.8-10.6)
[2024-02-26 08:13] LABS: Hemoglobin 7.9 g/dL (13.5-16.0)
[2024-02-26 08:21] LABS: Prothrombin Time 20.4 Seconds (9.0-12.2)
[2024-02-26] MEDS: SENNA/DOCUSATE SOD 1 TAB TABLET PO (09:11)
[2024-02-26] MEDS: AMIODARONE HCL 200 MG TABLET PO ×2 (09:11→21:21)
[2024-02-26] MEDS: LANSOPRAZOLE 30 MG TAB.RAP.DR GT (09:11)
[2024-02-26] MEDS: IRON SUCROSE CPLX INJ 20 MG/ML VIAL 5 ML 200 MG IVP (09:12)
[2024-02-26 09:35] LABS: Alanine Aminotransferase 14 U/L (10-49); Albumin, Serum 2.9 gm/dL (3.4-4.8); Albumin/Globulin Ratio 0.9 (1.2-2.2); Alkaline Phosphatase 136 U/L (46-116); Anion Gap 4 (7-16); Aspartate Amino Transferase 18 U/L (0-34); BUN/Creatinine Ratio 28 Ratio (12-20); Bilirubin,Total 1.7 mg/dL (0.3-1.2); Blood Urea Nitrogen 22 mg/dL (9-23); Calcium 8.9 mg/dL (8.3-10.6); Calcium (Corrected) 9.8 mg/dL (8.5-10.1); Carbon Dioxide 30.5 mMol/L (20.0-31.0); Chloride 107 mMol/L (98-107); Creatinine (Component) 0.8 mg/dL (0.6-1.3); Estimated Creatinine Clearance 73.7 mL/min (>60); Globulin 3.1 gm/dL (2.3-3.5); Glucose 117 mg/dL (74-106); Osmolality,Calculated 285 (275-295); Potassium 4.3 mMol/L (3.4-5.1); Sodium 141 mMol/L (136-145); eGFR > 60 See Note
--- NOTE | 2024-02-26 10:26 | PD.SURPROG ---
Documentation for date of: 02/26/24 Subjective Subjective Brief History: 88M with HTN, gout, DVT in remote past with IVC filter and on warfarin who called 911 late last night due to weakness. He was found to have Hgb 6, Wbc 11.3 and PTT 58. Pt has been transfused with appropriate response, however due to abdominal pain underwent CT AP which shows concern for pneumoperitoneum. Pt has remained afebrile with normal vital signs PMH: HTN, gout, DVT in remote past PSHx: IVC filter Meds: includes warfarin Allergies: NKDA Narrative: No acute changes, remaining afebrile and denies pain, has not yet passed gas or had a BM, WBC 22 from 24 Exam Vital Signs Temp Pulse Resp BP Pulse Ox O2 Del Method O2 Flow Rate 97.1 F 111 H 23 H 125/86 H 99 Nasal Cannula 2 02/26/24 08:00 02/26/24 09:20 02/26/24 09:20 02/26/24 09:11 02/26/24 09:20 02/26/24 08:00 02/26/24 09:20 Constitutional Constitutional: no acute distress Routine Respiratory Exam Respiratory: Present no resp distress Routine Abdominal Exam Abdominal: Present soft; Absent tenderness or distended Results Results: Laboratory Laboratory results: results reviewed Assessment & Plan Plan 88M with HTN, gout, remote DVT on warfarin who presented with weakness and findings of anemia, additionally with abdominal pain and pneumoperitoneum on CT. Pt has remained overall clinically well, with no pain or fever, and has consistently had a benign abdominal exam indicating that surgery would not likely improve his outcome. On CT there is also no indication of inflammation along the GI tract as a cause for this pneumoperitoneum; it is possibly related to his history of COPD OK to initiate diet per Speech recs Bowel regimen Physical therapy Monitor electrolytes
[2024-02-26] MEDS: Milk Of Magnesia Susp 30 ML UDC PO (11:17)
--- NOTE | 2024-02-26 11:17 | PC.SS ---
rounding note: Patient is a DNR. Altered. Son is primary alt medical decision maker. Patient lives alone. PT worked with patient the last two days and patient unable to ambulate. Patient may need SNF. SS will contact son.
[2024-02-26] MEDS: SODIUM CHLORIDE 0.9% 1000 ML 1,000 ML 75 ML IV (11:59)
--- NOTE | 2024-02-26 13:37 | ESPR_ITS ---
<Statement entered by Yue Walton MD - 02/27/24 07:40> Patient was seen and examined by me personally. I agree with most of the assessment and plan as discussed with the compensation intern physician, and my attending, Dr. Orellana. Vitals, labs reviewed. WBC remains elevated. GenSurg recommended to start diet, which patient has been tolerating. Will continue with conservative management. Yue Walton MD, PGY-3 Documentation for date of: 02/26/24 Subjective Subjective Interval history: Patient was seen and examined with son by his bedside. No acute overnight events and patient did not receive any benzodiazepine/other sedatives. Patient appears to be agitated and not responding appropriately. When talked to his son, he stated that he also noticed that his father is having agitated behavior and not being himself. Vitals are stable. On physical examination, patient is jumpy and trying to get out of the bed. Still moderate tenderness noted all over the abdomen but bowel sounds are appreciated. No bowel movements were noted since the hospital admission. Last bowel movement was about a week ago before the admission as stated by his son. Labs showed elevated WBC 22.2, hemoglobin 7.9, INR 2, total bilirubin 1.7, albumin 2.9 and rest of the labs were unremarkable. Dr. Mejia was consulted and recommended start diet along with milk of magnesium. Will continue to monitor mental status of the patient and follow the recommendations as suggested by Dr. Mejia Exam Vital Signs Temp Pulse Resp BP Pulse Ox O2 Del Method O2 Flow Rate 97.1 F 95 22 H 117/76 98 Nasal Cannula 2 02/26/24 12:00 02/26/24 12:00 02/26/24 12:02/26/24 12:02/26/24 12:02/26/24 12:02/26/24 12:00 Narrative Exam General: Awake and in no acute distress. HEENT: Normocephalic, atraumatic, mucous membranes moist. Heart: Regular rate and rhythm, no murmurs. Lungs: Clear to auscultation with no crackles. Bilateral diffuse wheeze is heard Abdomen: Soft, distended with moderate tenderness throughout the abdomen, mainly in the right upper quadrant. But bowel sounds are noted Neurologic: Alert and oriented x3, no gross neurological deficit, and patient able to move all 4 extremities. Extremities: Bilateral pitting pedal edema is noted but decreasing. Skin: No rash or ecchymoses. Objective Labs 02/27/24 05:01 02/27/24 05:01 Labs: Laboratory Results - last 24 hr 02/25/24 02/26/24 02/26/24 05:10 07:30 08:46 WBC 22.2 H RBC 4.16 L Hgb 7.9 L Hct 27.6 L MCV 66 L MCH 19.0 L MCHC 28.6 L RDW Std Deviation 57.4 H Plt Count 157 Neut % (Auto) 85 H Lymph % (Auto) 6 L [place] % (Auto) 8 Eos % (Auto) 0 Baso % (Auto) 0 Neut # (Auto) 18.9 H Lymph # (Auto) 1.3 [place] # (Auto) 1.8 H Eos # (Auto) 0.0 Baso # (Auto) 0.0 Immature Gran # (Auto) 0.18 H Absolute Nucleated RBC 0.02 H Immature Gran % 1 H Nucleated RBC % 0 PT 20.4 H D INR 2.0 H Sodium 141 Potassium 4.3 D Chloride 107 Carbon Dioxide 30.5 Anion Gap 4 L BUN 22 Creatinine 0.8 Estim Creat Clear Calc 73.7 eGFR > 60 BUN/Creatinine Ratio 28 H Glucose 117 H Calculated Osmolality 285 Calcium 8.9 Corrected Calcium 9.8 Magnesium 1.7 Total Bilirubin 1.7 H D AST 18 ALT 14 Alkaline Phosphatase 136 H D Total Protein 6.0 Albumin 2.9 L Globulin 3.1 Albumin/Globulin Ratio 0.9 L Quality Measures Quality Measures none Advance care planning discussed with:: patient and child Assessment & Plan Assessment Current Active Medications: Generic Name Dose Route Start Last Admin Trade Name Freq PRN Reason Stop Dose Admin Acetaminophen 650 mg 02/23/24 20:28 Acetaminophen Lyly 325 Mg/10 Ml [facility] [place] GT 03/24/24 20:27 Q6H PRN Fever >101.5 Acetaminophen 650 mg 02/23/24 20:29 Acetaminophen Lyly 325 Mg/10 Ml Ud GT 03/24/24 20:28 Q6H PRN PAIN SCALE 1-3 (mild Amiodarone HCl 200 mg 02/25/24 10:15 02/26/24 09:11 Amiodarone Hcl 200 Mg Tablet PO 03/26/24 10:14 200 mg BID JOE Administration Piperacillin/Tazobactam/Dextrose 50 mls @ 12.5 mls/hr 02/25/24 14:00 02/26/24 05:38 Zosyn IV 02/29/24 18:14 12.5 mls/hr Q8HR JOE Administration Sodium Chloride 1,000 mls @ 75 mls/hr 02/26/24 11:48 02/26/24 11:59 Ns IV 02/27/24 01:07 75 mls/hr .[id number] ONE Administration Iron Sucrose 200 mg 02/24/24 16:45 02/26/24 09:12 Iron Sucrose Cplx Inj 20 Mg/Ml Vial 5 Ml IVP 02/28/24 16:44 200 mg DAILY JOE Administration Lansoprazole 30 mg 02/25/24 21:00 02/26/24 09:11 Lansoprazole 30 Mg Tab. GT 03/25/24 21:59 30 mg Q12HR JOE Administration Magnesium Hydroxide 30 ml 02/26/24 10:15 02/26/24 11:17 Milk Of Magnesia Susp 30 Ml Udc PO 03/27/24 10:14 30 ml QDAY JOE Administration Protocol Midodrine 5 mg 02/24/24 16:48 Midodrine 5 Mg Tablet PO 03/25/24 21:59 TID PRN SBP <90 Ondansetron HCl 4 mg 02/22/24 04:09 Ondansetron Inj 2 Mg/Ml Inj 2 Ml IV 03/23/24 04:08 Q6H PRN NAUSEA OR VOMITING Protocol Oxycodone/Acetaminophen 1 tab 02/23/24 20:25 Oxycodone/Apap 5/325 Tablet GT 02/27/24 04:08 Q6H PRN PAIN SCALE 4-6 (Moderate Plan The patient is a 88-year-old male with significant past medical history of gout, hypertension, DVT currently on warfarin who presented to our ED with chief complaint of generalized weakness he is currently being treated for acute symptomatic blood loss anemia secondary to severe Coumadin coagulopathy. # New onset atrial fibrillation with rapid ventricular rate - controlled ventricular rate # In the setting of ongoing sepsis -Around 5:00 PM on 02/23/2024 patient was noted to have atrial fibrillation with rapid ventricular rate -Started on amiodarone as per protocol -Held heparin as patient INR is 2.1 -Echo is done but read is pending, will follow -Started Lasix 40 Mg IV twice daily in view of fluid overload on 02/23/2024 -On 02/24/2024 around 1:30 PM patient was found to have blood pressure of 90/60 mmHg on routine check but patient did not have any complaints So amiodarone drip was discontinued and Lasix was withheld, 500 cc of NS and 12.5 g of albumin was given. Blood pressure improved to 98/56 mmHg. Plan -On 02/25/2024, heart rate is around 112 and patient is still in A-fib with blood pressure within normal limits, so started on amiodarone 200 Mg twice daily. -Withheld Lasix as patient does not appear to be fluid overloaded -If the patient's blood pressure permits and still tachycardic, will add metoprolol. # ?Bowel perforation, CT # Pneumoperitoneum #? Peritonitis secondary to perforation -On examination, severe tenderness noted on superficial palpation mainly on the right upper quadrant. -Chest x-ray showed air under diaphragm -CT abdomen/pelvis report came back as pneumoperitoneum and immediately Dr. Do was consulted. -CBC as of 02/24/2024 is 23K--> 12, 24.5 Plan -Still no bowel movement noted but on examination, bowel sounds are heard -CT abdomen done on 02/24/2024 still showed pneumoperitoneum which is worsening -Dr. Gomez was consulted and and recommended no procedures on the patient in view of risk of perforation. -Dr. Do was following and recommended conservative management -As patient is not complaining of any pain, not on any pain medications. -Speech language evaluation was ordered and recommended dysphagia 3 diet -Discontinued the NG tube and started on diet as recommended by Dr. Do -Milk of magnesium is added to the patient in view of constipation. -Will continue Zosyn #Acute symptomatic blood loss anemia 2/ #Severe Coumadin coagulopathy Patient is taking warfarin for long time for DVT, dose and frequency could not be figured out as patient is very hard of hearing and poor historian Etiology of blood loss unknown, but likely differential is acute GI bleed Presented with hemoglobin 6.0, hematocrit 22.9, PT greater than 63.0, INR out of range and APTT 58.3 Received 1 unit of PRBC in the ED Received 1 dose of vitamin K 10 Mg subcutaneous Received Kcentra 4950 units for Coumadin reversal as INR is out of range Plan -Received total 2 packs of RBC, 1 Pack of FFP, 4950 units of Kcentra, 2 doses of vitamin K 10 Mg, a dose of 40 Mg Lasix on the day of admission -Repeat INR on 02/23/2024 is 2.1 > 12/3, INR is 1.5 > 12/4, INR is 1.6 > 12/5 INR 2 # Hypokalemia, resolved Likely due to continuous gastric suction and decreased oral intake -Potassium on 02/25/2024 is 3.1 --- potassium phosphate IV is given -Will continue to monitor the electrolytes. #H/O Hypertension Currently patient is hemodynamically stable. -Monitor vitals with #Hypothermia, resolved Presented with temperature of 96.2 and patient was placed on warmer -Currently temperature is stable # History of BPH -On tamsulosin 0.4 Mg p.o. daily at home Plan -As the blood pressures are labile, will resume tamsulosin once the blood pressures are stable # History of DVT, resolved -Patient was started on warfarin and IVC filter is placed almost 20 years ago -Patient was offered removal of IVC filter 6 years ago but patient denied the procedure -Patient continued to be on warfarin since then and found to have supratherapeutic INR at the time of admission #Leukocytosis -Likely due to perforation -Daily CBC monitoring Health maintenance: Dispo: medtele Diet:Dysphagia 3 DVT prophylaxis: SCDs CODE STATUS: DNR/DNI Patient plan of care was discussed with the attending physician, Dr. Orellana and senior resident Dr. Anton Gould, PGY1 Attending Provider Attestation/Addendum I reviewed labs, imaging, EKG, home medications and prior available records. Face to face evaluation was performed by me. I have personally examined the patient and discussed assessment and plan with the IM team. I reviewed the resident note and agree with the plan with exceptions as below. Pneumoperitoneum: CT scan showed extensive pneumoperitoneum possibly from colonic perforation. Patient has minimal symptoms. Discussed with general surgery: Okay to start diet and advance as tolerated. Advance the diet to dysphagia 3. Removed NG tube. Continue IV Zosyn. Management of nausea/pain as needed. Atrial fibrillation with RVR: He is borderline tachycardic. Started p.o. amiodarone. Anticoagulation held due to anticipated surgery. Leukocytosis: Reactive versus in the setting of abdominal infection. Management as above. Trend WBC: Downtrending.
--- NOTE | 2024-02-26 19:42 | ESPR_ITS ---
Documentation for date of: 02/26/24 Subjective Subjective Interval history: Patient evaluated WBC count has come down to 22.2 Hemoglobin hematocrit 7.9 and 26.1 slight drop from 8.7 and 30.5 Afebrile Abdomen soft nontender positive bowel sounds Advance diet as tolerated Exam Vital Signs Temp Pulse Resp BP Pulse Ox O2 Del Method O2 Flow Rate 97.3 F 102 H 21 H 107/76 98 Nasal Cannula 2 02/26/24 16:00 02/26/24 16:00 02/26/24 16:00 02/26/24 16:00 02/26/24 16:00 02/26/24 16:00 02/26/24 16:00 Objective Labs 02/26/24 07:30 02/26/24 08:46 Labs: Laboratory Results - last 24 hr 02/26/24 02/26/24 07:30 08:46 WBC 22.2 H RBC 4.16 L Hgb 7.9 L Hct 27.6 L MCV 66 L MCH 19.0 L MCHC 28.6 L RDW Std Deviation 57.4 H Plt Count 157 Neut % (Auto) 85 H Lymph % (Auto) 6 L [place] % (Auto) 8 Eos % (Auto) 0 Baso % (Auto) 0 Neut # (Auto) 18.9 H Lymph # (Auto) 1.3 [place] # (Auto) 1.8 H Eos # (Auto) 0.0 Baso # (Auto) 0.0 Immature Gran # (Auto) 0.18 H Absolute Nucleated RBC 0.02 H Immature Gran % 1 H Nucleated RBC % 0 PT 20.4 H D INR 2.0 H Sodium 141 Potassium 4.3 D Chloride 107 Carbon Dioxide 30.5 Anion Gap 4 L BUN 22 Creatinine 0.8 Estim Creat Clear Calc 73.7 eGFR > 60 BUN/Creatinine Ratio 28 H Glucose 117 H Calculated Osmolality 285 Calcium 8.9 Corrected Calcium 9.8 Total Bilirubin 1.7 H D AST 18 ALT 14 Alkaline Phosphatase 136 H D Total Protein 6.0 Albumin 2.9 L Globulin 3.1 Albumin/Globulin Ratio 0.9 L Impressions Impression: # Pneumoperitoneum # Improving leukocytosis Advance diet as tolerated Assessment & Plan A&P Narrative # Pneumoperitoneum with fluid intra-abdominal most likely sealed off perforation Not much in the NGT except small bilious amount Continue conservative management with IV antibiotics and NGT suction No need for surgical intervention at this time Although patient is anemic requiring blood transfusion I will hold off doing any invasive GI workup till patient improves Time Spent With Patient Time: Total time spent is greater than 50% in coordination of care (as documented) at patient's floor/unit and/or counseling patient:
[2024-02-26] MEDS: LANSOPRAZOLE 30 MG TAB.RAP.DR PO ×2 (21:21→21:28)
[2024-02-27] VITALS (14 sets, daily range): BP systolic 102–145; BP diastolic 62–82; PULSE 84–109; RESP 15–30; TEMP 35.7–37.1; O2SAT 90–99; BMI 31.5; BMI 12.0
[2024-02-27] MEDS: PIPER/TAZO 3.375 GM 50 ML IV ×3 (05:14→21:02)
[2024-02-27 05:47] LABS: Basophils % (Auto) 0 % (0-2.5); Eosinophils # (Auto) 0.1 Thou/mm3 (0.0-0.5); Eosinophils % (Auto) 1 % (0-10); Immature Granulocytes % (Auto) 1 % (0-0); Immature Granulocytes Auto 0.17 Thou/mm3 (0.00-0.00); Lymphocytes # (Auto) 0.9 Thou/mm3 (1.0-4.8); Lymphocytes % (Auto) 6 % (10-50); Mean Corpuscular HGB Conc 28.3 g/dl (31.0-37.0); Mean Corpuscular Hemoglobin 19.2 pg (25.0-35.0); Mean Corpuscular Volume 68 fL (80-100); Monocytes # (Auto) 1.6 Thou/mm3 (0.0-0.8); Monocytes % (Auto) 12 % (0-12); Neutrophils # (Auto) 10.6 Thou/mm3 (1.8-7.7); Neutrophils % (Auto) 79 % (37-80); Nucleated Red Blood Cell # 0.03 Thou/mm3 (0.00-0.00); Nucleated Red Blood Cell % 0 /100 WBC (0); Platelet Count 160 Thou/mm3 (140-440); RDW Standard Deviation 60.2 fL (35.1-43.9); Red Blood Count 4.26 Miln/mm3 (4.50-5.90); White Blood Count 13.3 Thou/mm3 (3.8-10.6)
[2024-02-27 05:49] LABS: Hemoglobin 8.2 g/dL (13.5-16.0)
[2024-02-27 05:53] LABS: INR 2.6 (0.9-1.3); Prothrombin Time 26.3 Seconds (9.0-12.2)
[2024-02-27 06:24] LABS: Alanine Aminotransferase 19 U/L (10-49); Albumin, Serum 3.1 gm/dL (3.4-4.8); Albumin/Globulin Ratio 1.1 (1.2-2.2); Alkaline Phosphatase 110 U/L (46-116); Anion Gap 6 (7-16); Aspartate Amino Transferase 18 U/L (0-34); BUN/Creatinine Ratio 23 Ratio (12-20); Bilirubin,Total 1.2 mg/dL (0.3-1.2); Blood Urea Nitrogen 18 mg/dL (9-23); Calcium 8.3 mg/dL (8.3-10.6); Carbon Dioxide 29.7 mMol/L (20.0-31.0); Chloride 104 mMol/L (98-107); Creatinine (Component) 0.8 mg/dL (0.6-1.3); Estimated Creatinine Clearance 74.2 mL/min (>60); Globulin 2.8 gm/dL (2.3-3.5); Glucose 120 mg/dL (74-106); Osmolality,Calculated 282 (275-295); Potassium 3.7 mMol/L (3.4-5.1); Sodium 140 mMol/L (136-145); Total Protein 5.9 gm/dL (5.7-8.2); eGFR > 60 See Note
--- NOTE | 2024-02-27 08:36 | PD.SURPROG ---
Documentation for date of: 02/27/24 Subjective Subjective Brief History: 88M with HTN, gout, DVT in remote past with IVC filter and on warfarin who called 911 late last night due to weakness. He was found to have Hgb 6, Wbc 11.3 and PTT 58. Pt has been transfused with appropriate response, however due to abdominal pain underwent CT AP which shows concern for pneumoperitoneum. Pt has remained afebrile with normal vital signs PMH: HTN, gout, DVT in remote past PSHx: IVC filter Meds: includes warfarin Allergies: NKDA Narrative: Remaining afebrile, denies pain, tolerating diet, WBC 13 from 20s Exam Vital Signs Temp Pulse Resp BP Pulse Ox O2 Del Method O2 Flow Rate 97.1 F 95 18 145/82 H 97 Nasal Cannula 2 02/27/24 04:00 02/27/24 06:45 02/27/24 06:45 02/27/24 04:00 02/27/24 06:45 02/27/24 04:00 02/27/24 06:45 Constitutional Constitutional: chronically ill appearing Routine Respiratory Exam Respiratory: Present no resp distress Routine Abdominal Exam Abdominal: Present soft; Absent tenderness or distended Results Results: Laboratory Laboratory results: results reviewed Assessment & Plan Plan 88M with HTN, gout, remote DVT on warfarin who presented with weakness and findings of anemia, additionally with abdominal pain and pneumoperitoneum on CT. Pt has remained overall clinically well, with no pain or fever, and has consistently had a benign abdominal exam indicating that surgery would not likely improve his outcome Continue diet as tolerated Monitor electrolytes DC planning
[2024-02-27] MEDS: Milk Of Magnesia Susp 30 ML UDC PO (09:16)
[2024-02-27] MEDS: LANSOPRAZOLE 30 MG TAB.RAP.DR PO ×2 (09:17→21:09)
[2024-02-27] MEDS: AMIODARONE HCL 200 MG TABLET PO ×2 (09:27→21:06)
[2024-02-27] MEDS: IRON SUCROSE CPLX INJ 20 MG/ML VIAL 5 ML 200 MG IVP (09:28)
--- NOTE | 2024-02-27 10:11 | ESPR_ITS ---
Documentation for date of: 02/27/24 Subjective Subjective Interval history: Patient was seen and examined bedside. No acute overnight events. Patient had total 4 bowel movements from yesterday. Patient is still agitated and trying to get out of the bed but is able to recognize his son and respond appropriately to the questions. Incoherent to the time and place Vitals are stable. On physical examination, abdominal tenderness is decreasing. Labs showed downtrending WBC. Will continue the antibiotics for now. Exam Vital Signs Temp Pulse Resp BP Pulse Ox O2 Del Method O2 Flow Rate 97.1 F 95 18 145/82 H 97 Nasal Cannula 2 02/27/24 04:00 02/27/24 09:27 02/27/24 06:45 02/27/24 09:27 02/27/24 06:45 02/27/24 04:00 02/27/24 06:45 Narrative Exam General: Awake and in no acute distress. HEENT: Normocephalic, atraumatic, mucous membranes moist. Heart: Regular rate and rhythm, no murmurs. Lungs: Clear to auscultation with no crackles. Bilateral diffuse wheeze is heard Abdomen: Soft, distended with mild tenderness throughout the abdomen, mainly in the right upper quadrant. But bowel sounds are noted Neurologic: Alert and oriented x3, no gross neurological deficit, and patient able to move all 4 extremities. Extremities: Bilateral pitting pedal edema is noted but decreasing. Skin: No rash or ecchymoses. Objective Labs 02/28/24 04:51 02/28/24 04:51 Labs: Laboratory Results - last 24 hr 02/27/24 05:01 WBC 13.3 H D RBC 4.26 L Hgb 8.2 L Hct 29.0 L MCV 68 L MCH 19.2 L MCHC 28.3 L RDW Std Deviation 60.2 H Plt Count 160 Neut % (Auto) 79 Lymph % (Auto) 6 L [place] % (Auto) 12 Eos % (Auto) 1 Baso % (Auto) 0 Neut # (Auto) 10.6 H Lymph # (Auto) 0.9 L [place] # (Auto) 1.6 H Eos # (Auto) 0.1 Baso # (Auto) 0.0 Immature Gran # (Auto) 0.17 H Absolute Nucleated RBC 0.03 H Immature Gran % 1 H Nucleated RBC % 0 PT 26.3 H D INR 2.6 H Sodium 140 Potassium 3.7 D Chloride 104 Carbon Dioxide 29.7 Anion Gap 6 L BUN 18 Creatinine 0.8 Estim Creat Clear Calc 74.2 eGFR > 60 BUN/Creatinine Ratio 23 H Glucose 120 H Calculated Osmolality 282 Calcium 8.3 Corrected Calcium 9.0 Total Bilirubin 1.2 D AST 18 ALT 19 Alkaline Phosphatase 110 D Total Protein 5.9 Albumin 3.1 L Globulin 2.8 Albumin/Globulin Ratio 1.1 L Quality Measures Quality Measures none Advance care planning discussed with:: patient and child Assessment & Plan Assessment Current Active Medications: Generic Name Dose Route Start Last Admin Trade Name Freq PRN Reason Stop Dose Admin Acetaminophen 650 mg 02/26/24 21:23 Acetaminophen Lyly 325 Mg/10 Ml Udc PO 03/24/24 20:28 Q6H PRN PAIN SCALE 1-3 (mild Amiodarone HCl 200 mg 02/25/24 10:15 02/27/24 09:27 Amiodarone Hcl 200 Mg Tablet PO 03/26/24 10:14 200 mg BID JOE Administration Diltiazem HCl 30 mg 02/27/24 10:15 Diltiazem 30 Mg Tablet PO 03/28/24 10:14 BID JOE Piperacillin/Tazobactam/Dextrose 50 mls @ 12.5 mls/hr 02/25/24 14:00 02/27/24 05:14 Zosyn IV 02/29/24 18:14 12.5 mls/hr Q8HR JOE Administration Iron Sucrose 200 mg 02/24/24 16:45 02/27/24 09:28 Iron Sucrose Cplx Inj 20 Mg/Ml Vial 5 Ml IVP 02/28/24 16:44 200 mg DAILY JOE Administration Lansoprazole 30 mg 02/26/24 21:30 02/27/24 09:17 Lansoprazole 30 Mg Tab.Rap.Dr PO 03/27/24 21:29 30 mg Q12HR JOE Administration Levalbuterol HCl 0.63 mg 02/27/24 14:00 Levalbuterol Rt 0.63 Mg/3 Ml Nebu INH 03/28/24 13:59 Q8HR JOE Midodrine 5 mg 02/24/24 16:48 Midodrine 5 Mg Tablet PO 03/25/24 21:59 TID PRN SBP <90 Ondansetron HCl 4 mg 02/22/24 04:09 Ondansetron Inj 2 Mg/Ml Inj 2 Ml IV 03/23/24 04:08 Q6H PRN NAUSEA OR VOMITING Protocol Plan pulmonary hypertension The patient is a 88-year-old male with significant past medical history of gout, hypertension, DVT currently on warfarin who presented to our ED with chief complaint of generalized weakness he is currently being treated for acute symptomatic blood loss anemia secondary to severe Coumadin coagulopathy. # New onset atrial fibrillation with rapid ventricular rate - controlled ventricular rate # In the setting of ongoing sepsis -Around 5:00 PM on 02/23/2024 patient was noted to have atrial fibrillation with rapid ventricular rate -Started on amiodarone as per protocol -Held heparin as patient INR is 2.1 -Echo is done but read is pending, will follow -Started Lasix 40 Mg IV twice daily in view of fluid overload on 02/23/2024 -On 02/24/2024 around 1:30 PM patient was found to have blood pressure of 90/60 mmHg on routine check but patient did not have any complaints So amiodarone drip was discontinued and Lasix was withheld, 500 cc of NS and 12.5 g of albumin was given. Blood pressure improved to 98/56 mmHg. Plan -On 02/25/2024, heart rate is around 112 and patient is still in A-fib with blood pressure within normal limits, so started on amiodarone 200 Mg twice daily. -Withheld Lasix as patient does not appear to be fluid overloaded -As patient's blood pressures are maintained well and heart rate is still around 110, diltiazem 30 Mg twice daily p.o. is added. # ?Bowel perforation, CT # Pneumoperitoneum #? Peritonitis secondary to perforation -On examination, severe tenderness noted on superficial palpation mainly on the right upper quadrant. -Chest x-ray showed air under diaphragm -CT abdomen/pelvis report came back as pneumoperitoneum and immediately Dr. Do was consulted. -CBC as of 02/24/2024 is 23K--> 12/, 24.5 --> 12/6, 13.3 Plan -Still no bowel movement noted but on examination, bowel sounds are heard -CT abdomen done on 02/24/2024 still showed pneumoperitoneum which is worsening -Dr. Gomez was consulted and and recommended no procedures on the patient in view of risk of perforation. -Dr. Do was following and recommended conservative management -As patient is not complaining of any pain, not on any pain medications. -Speech language evaluation was ordered and recommended dysphagia 3 diet -Discontinued the NG tube and started on diet as recommended by Dr. Do -Patient is tolerating the diet well and had 6 bowel movements yesterday. -Will continue Zosyn #Acute symptomatic blood loss anemia 2/ #Severe Coumadin coagulopathy Patient is taking warfarin for long time for DVT, dose and frequency could not be figured out as patient is very hard of hearing and poor historian Etiology of blood loss unknown, but likely differential is acute GI bleed Presented with hemoglobin 6.0, hematocrit 22.9, PT greater than 63.0, INR out of range and APTT 58.3 Received 1 unit of PRBC in the ED Received 1 dose of vitamin K 10 Mg subcutaneous Received Kcentra 4950 units for Coumadin reversal as INR is out of range Plan -Received total 2 packs of RBC, 1 Pack of FFP, 4950 units of Kcentra, 2 doses of vitamin K 10 Mg, a dose of 40 Mg Lasix on the day of admission -Repeat INR on 02/23/2024 is 2.1 > 12/3, INR is 1.5 > 12/4, INR is 1.6 > 12/5 INR 2 > 12/6 INR 2.6 # Hypokalemia, resolved Likely due to continuous gastric suction and decreased oral intake -Potassium on 02/25/2024 is 3.1 --- potassium phosphate IV is given -Will continue to monitor the electrolytes. #H/O Hypertension Currently patient is hemodynamically stable. -Monitor vitals #Hypothermia, resolved Presented with temperature of 96.2 and patient was placed on warmer -Currently temperature is stable # History of BPH -On tamsulosin 0.4 Mg p.o. daily at home Plan -As the blood pressures are labile, will resume tamsulosin once the blood pressures are stable # History of DVT, resolved -Patient was started on warfarin and IVC filter is placed almost 20 years ago -Patient was offered removal of IVC filter 6 years ago but patient denied the procedure -Patient continued to be on warfarin since then and found to have supratherapeutic INR at the time of admission #Leukocytosis -Likely due to perforation -Daily CBC monitoring # Moderate to severe pulmonary hypertension -Echocardiogram done on 02/22/2024 showed - Normal LV size and function. Grade I diastolic dysfunction. Estimated EF 55-60% Dilated RV. Normal RV function. Estimated RVSP 80 mm hg. moderate to severe PAH. -Likely due to COPD, type III pulmonary hypertension Plan -Will recommend the patient to follow-up in outpatient setting with presser hand and stock roller Health maintenance: Dispo: medtele Diet:Dysphagia 3 DVT prophylaxis: SCDs CODE STATUS: DNR/DNI Patient plan of care was discussed with the attending physician, Dr. Orellana and senior resident Dr. Dangelo Gould, PGY1 L Patient is now on dysphagia 3 diet, tolerating well. As per surgical recommendations, we will observe over the next 48 hours, keep patient on Zosyn. Abdomen still benign on exam, no tenderness. Anticipate discharge in 2-3 days if continues to improve and tolerate diet. PT to work with patient. Patient examined and case discussed with the team including attending physician. Note reviewed, I agree with the care plan as documented. - Juni Pierson MD, PGY 2 Attending Provider Attestation/Addendum I reviewed labs, imaging, EKG, home medications and prior available records. Face to face evaluation was performed by me. I have personally examined the patient and discussed assessment and plan with the IM team. I reviewed the resident note and agree with the plan with exceptions as below. Pneumoperitoneum: CT scan showed extensive pneumoperitoneum possibly from colonic perforation. Patient has minimal symptoms. He had a bowel movement. Discussed with general surgery: Okay to start diet and advance as tolerated. Advance the diet to dysphagia 3. Removed NG tube. Continue IV Zosyn. Management of nausea/pain as needed. Atrial fibrillation with RVR: He is borderline tachycardic. Started p.o. amiodarone. Started p.o. diltiazem. Anticoagulation held due to anticipated surgery. Follow-up PT/PTT. Leukocytosis: Reactive versus in the setting of abdominal infection. Management as above. Trend WBC: Downtrending.
[2024-02-27] MEDS: DILTIAZEM 30 MG TABLET PO ×2 (10:25→21:09)
[2024-02-27] MEDS: LEVALBUTEROL RT 0.63 MG/3 ML NEBU INH ×2 (14:00→22:13)
--- NOTE | 2024-02-27 19:35 | PD.IMPROG ---
Documentation for date of: 02/27/24 Subjective Subjective Interval history: WBC count dropped down to 13.3 Abdomen soft nontender active bowel sounds Advance diet as tolerated Exam Vital Signs Temp Pulse Resp BP Pulse Ox O2 Del Method O2 Flow Rate 96.3 F L 88 23 H 104/62 90 L Nasal Cannula 4 02/27/24 16:00 02/27/24 16:00 02/27/24 16:00 02/27/24 16:00 02/27/24 16:00 02/27/24 16:00 02/27/24 16:00 Objective Labs 02/27/24 05:01 02/27/24 05:01 Labs: Laboratory Results - last 24 hr 02/27/24 05:01 WBC 13.3 H D RBC 4.26 L Hgb 8.2 L Hct 29.0 L MCV 68 L MCH 19.2 L MCHC 28.3 L RDW Std Deviation 60.2 H Plt Count 160 Neut % (Auto) 79 Lymph % (Auto) 6 L [place] % (Auto) 12 Eos % (Auto) 1 Baso % (Auto) 0 Neut # (Auto) 10.6 H Lymph # (Auto) 0.9 L [place] # (Auto) 1.6 H Eos # (Auto) 0.1 Baso # (Auto) 0.0 Immature Gran # (Auto) 0.17 H Absolute Nucleated RBC 0.03 H Immature Gran % 1 H Nucleated RBC % 0 PT 26.3 H D INR 2.6 H Sodium 140 Potassium 3.7 D Chloride 104 Carbon Dioxide 29.7 Anion Gap 6 L BUN 18 Creatinine 0.8 Estim Creat Clear Calc 74.2 eGFR > 60 BUN/Creatinine Ratio 23 H Glucose 120 H Calculated Osmolality 282 Calcium 8.3 Corrected Calcium 9.0 Total Bilirubin 1.2 D AST 18 ALT 19 Alkaline Phosphatase 110 D Total Protein 5.9 Albumin 3.1 L Globulin 2.8 Albumin/Globulin Ratio 1.1 L Impressions Impression: # Pneumoperitoneum with benign abdomen on examination Advance diet as tolerated Assessment & Plan A&P Narrative # Pneumoperitoneum with fluid intra-abdominal most likely sealed off perforation Not much in the NGT except small bilious amount Continue conservative management with IV antibiotics and NGT suction No need for surgical intervention at this time Although patient is anemic requiring blood transfusion I will hold off doing any invasive GI workup till patient improves Time Spent With Patient Time: Total time spent is greater than 50% in coordination of care (as documented) at patient's floor/unit and/or counseling patient:
[2024-02-27] MEDS: MELATONIN 3 MG TABLET PO (21:09)
[2024-02-28] VITALS (13 sets, daily range): BP systolic 88–128; BP diastolic 55–82; PULSE 79–115; RESP 20–26; TEMP 36.1–36.4; O2SAT 88–100
--- NOTE | 2024-02-28 00:15 | PC.NURSE ---
Called into room by sitter, pt restless, pulling on gown, trying to take off monitors, oxygen, IV, pt not following verbal command, not responding to questions. reoriented, pt appeared to calm down.
[2024-02-28] MEDS: QUEtiapine FUMARATE 25 MG TABLET PO (01:04)
--- NOTE | 2024-02-28 01:10 | PC.NURSE ---
Pt continues to be restless in bed, pulling on lines, O2 dropping with repositioning for safety, O2 increased to 6L NC. MD notified of pt restlessness and attempting to pull lines. Order recieved and given for PO Seroquel.
--- NOTE | 2024-02-28 01:50 | PC.NURSE ---
Pt continues to be restless despite PO medication given 30 minutes ago, continues to desat on 6L MD ROBERTO notified of pt desating with repositioning down to 70's, reported may need to switch to mask, unsure if pt will keep on. MD to order other medication Medication given, see MAR, pt changed to oxymask by RT titrated back to 6L via mask.
[2024-02-28] MEDS: OLANZapine INJ 10 MG, Sterile Water 2.1 ML IM (02:21)
[2024-02-28] MEDS: HALOPERIDOL LACT INJ 5 MG/ML VIAL IM (04:22)
[2024-02-28] MEDS: PIPER/TAZO 3.375 GM 50 ML IV ×3 (05:15→21:02)
[2024-02-28 05:45] LABS: Basophils % (Auto) 0 % (0-2.5); Eosinophils # (Auto) 0.1 Thou/mm3 (0.0-0.5); Eosinophils % (Auto) 1 % (0-10); Hematocrit 26.6 % (41.0-53.0); Immature Granulocytes % (Auto) 2 % (0-0); Immature Granulocytes Auto 0.16 Thou/mm3 (0.00-0.00); Lymphocytes % (Auto) 11 % (10-50); Mean Corpuscular HGB Conc 27.4 g/dl (31.0-37.0); Mean Corpuscular Hemoglobin 19.5 pg (25.0-35.0); Mean Corpuscular Volume 71 fL (80-100); Monocytes % (Auto) 11 % (0-12); Neutrophils # (Auto) 6.8 Thou/mm3 (1.8-7.7); Neutrophils % (Auto) 76 % (37-80); Nucleated Red Blood Cell # 0.02 Thou/mm3 (0.00-0.00); Nucleated Red Blood Cell % 0 /100 WBC (0); Platelet Count 192 Thou/mm3 (140-440); RDW Standard Deviation 62.8 fL (35.1-43.9); Red Blood Count 3.74 Miln/mm3 (4.50-5.90)
[2024-02-28 05:53] LABS: Hemoglobin 7.3 g/dL (13.5-16.0)
[2024-02-28 06:08] LABS: Alanine Aminotransferase 15 U/L (10-49); Albumin/Globulin Ratio 1.2 (1.2-2.2); Alkaline Phosphatase 98 U/L (46-116); Anion Gap 6 (7-16); Aspartate Amino Transferase 17 U/L (0-34); BUN/Creatinine Ratio 23 Ratio (12-20); Bilirubin,Total 1.1 mg/dL (0.3-1.2); Blood Urea Nitrogen 16 mg/dL (9-23); Calcium 8.6 mg/dL (8.3-10.6); Calcium (Corrected) 9.4 mg/dL (8.5-10.1); Carbon Dioxide 28.2 mMol/L (20.0-31.0); Chloride 106 mMol/L (98-107); Creatinine (Component) 0.7 mg/dL (0.6-1.3); Estimated Creatinine Clearance 84.8 mL/min (>60); Globulin 2.6 gm/dL (2.3-3.5); Glucose 124 mg/dL (74-106); Osmolality,Calculated 281 (275-295); Potassium 3.6 mMol/L (3.4-5.1); Sodium 140 mMol/L (136-145); Total Protein 5.6 gm/dL (5.7-8.2); eGFR > 60 See Note
[2024-02-28] MEDS: LEVALBUTEROL RT 0.63 MG/3 ML NEBU INH ×3 (06:59→23:55)
--- NOTE | 2024-02-28 07:27 | XR_ITS ---
Examination: CT brain head without contrast. 2-D sagittal coronal reconstructions Date and time of exam:March 09, 2024 1229 hrs. Indications: Agitation altered mental status today CTDI: vol (mGy):51.9 DLP: (mGycm):1127 Technique: Multiple CT axial sections of the brain have been obtained, 5 mm slice thickness. Contrast has not been administered. 2-D sagittal, coronal reconstructions have been obtained Low dose protocols were performed. One or more of the following dose reduction techniques were used; automated exposure control, adjustment of the mA and/or KV according to patient size, use of iterative reconstruction technique. Findings: No significant ventricular enlargement. Intra-axial or extra-axial hemorrhage density is not seen. No mass effect or midline shift Basal cisterns are not remarkable. Fourth ventricle is midline. Cranial vault intact. Impression: Negative for acute hemorrhage, mass effect or midline shift Advise clinical correlation and follow-up accordingly
--- NOTE | 2024-02-28 09:07 | XR_ITS ---
Examination: AP chest single view Technique: AP portable upright chest single view Exam date and time: February 28, 2024 0946 hrs. Comparison February 24, 2024 Indications: Shortness of breath coughing congestion this week clinical diagnosis aspiration Findings: Extensive free air beneath right hemidiaphragm Mild heart failure with enlarged cardiac contour prominent vascular congestion including central vascular engorgement Bibasilar pneumonia, consider aspiration pneumonia Impression: Extensive free air beneath right hemidiaphragm Mild heart failure Bibasilar pneumonia consider aspiration pneumonia
[2024-02-28 10:17] LABS: Base Excess 5 (-3-3); HCO3 30 mEq/L (20-26); Inspired Oxygen, FIO2 87 %; O2 Saturation 100 % (91-98); PCO2 45 mmHg (32.0-48.0); PO2 152 mmHg (83-108); pH, Arterial 7.43 (7.35-7.45)
[2024-02-28 10:19] LABS: Allen Test Performed/OK; Puncture Site Right Radial
[2024-02-28] MEDS: PANTOPRAZOLE INJ 40 MG VIAL IVP (11:00)
[2024-02-28 11:22] LABS: Lactate (Lactic Acid) 2.6 mMol/L (0.4-2.0)
--- NOTE | 2024-02-28 12:19 | PC.NURSE ---
Patient to CT via gurney with HiFlow, RT at bedside.
--- NOTE | 2024-02-28 13:03 | EKG_ITS ---
[facility] Test Date: 2024-02-28 Pat Name: FRANCINE COLON [facility] Gender: Male Lab Tester: BREANNE : 1935 Requested By: Miguelangel Gould Order Number: [id number] Reading MD: Miguelangel Gould Measurements Intervals [place] Rate: 104 P: MI: QRS: 67 QRSD: 100 T: 95 QT: 313 QTc: 413 Interpretive Statements ATRIAL FIBRILLATION WITH RAPID VENTRICULAR RESPONSE LOW QRS VOLTAGE IN PRECORDIAL LEADS MODERATE ST DEPRESSION Compared to ECG 02/23/2024 16:28:14 ST (T wave) deviation now present Ventricular premature complex(es) no longer present Aberrant conduction of supraventricular beat(s) no longer present T-wave abnormality no longer present /store/S0/[id number]/ecg/[id number].pdf
--- NOTE | 2024-02-28 14:00 | ESPR_ITS ---
Documentation for date of: 02/28/24 Subjective Subjective Interval history: Patient was seen and examined bedside. Overnight, as patient is agitated he received haloperidol, quetiapine, olanzapine. When examined today, patient is drowsy not responding appropriately to the questions and moaning. Diffuse wheeze is heard even from the 4 and patient was started on oxygen through oxygen mask as patient's saturations were low since last night. Vitals are stable and SpO2 is 88% with 7 L of oxygen through OxyMask. ABG, chest x-ray, CT head were ordered. Patient was kept on n.p.o. as he is altered and had risk of aspiration. ABG showed mild metabolic alkalosis with pCO2 45. Chest x-ray remained unchanged from the previous. Mucinex nebulization and chest PT were ordered. CT head showed no acute infarct/hemorrhage. Lactate was ordered and patient was started on 500 mL NS at 50 mL/h. Ordered glucose checks 6th hrly. Exam Vital Signs Temp Pulse Resp BP Pulse Ox O2 Del Method O2 Flow Rate 97.6 F 112 H 22 H 128/82 90 L Nasal Cannula 30 02/28/24 08:00 02/28/24 12:00 02/28/24 10:23 02/28/24 08:00 02/28/24 10:23 02/28/24 08:00 02/28/24 10:23 FiO2 65 02/28/24 10:23 Narrative Exam General: Awake and moaning. Drowsy and not responding to questions. HEENT: Normocephalic, atraumatic, mucous membranes moist. Heart: Irregular heart rate. No murmurs heard Lungs: Bilateral diffuse wheeze heard even from distance. Abdomen: Soft, nondistended, tender to touch, positive bowel sounds. ?No guarding or rebound tenderness. Neurologic: Alert and oriented x3, no gross neurological deficit, and patient able to move all 4 extremities. Extremities: No edema. Skin: No rash or ecchymoses. Objective Labs 02/29/24 04:35 02/29/24 04:35 Labs: Laboratory Results - last 24 hr 02/28/24 02/28/24 02/28/24 04:51 10:00 11:00 WBC 9.0 RBC 3.74 L Hgb 7.3 L Hct 26.6 L MCV 71 L MCH 19.5 L MCHC 27.4 L RDW Std Deviation 62.8 H Plt Count 192 D Neut % (Auto) 76 Lymph % (Auto) 11 [place] % (Auto) 11 Eos % (Auto) 1 Baso % (Auto) 0 Neut # (Auto) 6.8 Lymph # (Auto) 1.0 [place] # (Auto) 1.0 H Eos # (Auto) 0.1 Baso # (Auto) 0.0 Immature Gran # (Auto) 0.16 H Absolute Nucleated RBC 0.02 H Immature Gran % 2 H Nucleated RBC % 0 Puncture Site Right Radial ABG pH 7.43 ABG pCO2 45 ABG pO2 152 H ABG HCO3 30 H ABG O2 Saturation 100 H ABG Base Excess 5 H FiO2 87 Sodium 140 Potassium 3.6 Chloride 106 Carbon Dioxide 28.2 Anion Gap 6 L BUN 16 Creatinine 0.7 Estim Creat Clear Calc 84.8 eGFR > 60 BUN/Creatinine Ratio 23 H Glucose 124 H Calculated Osmolality 281 Lactic Acid 2.6 H Calcium 8.6 Corrected Calcium 9.4 Total Bilirubin 1.1 AST 17 ALT 15 Alkaline Phosphatase 98 Total Protein 5.6 L Albumin 3.0 L Globulin 2.6 Albumin/Globulin Ratio 1.2 ABG Interpretation ABG results: 02/28/24 10:00 ABG pH 7.43 ABG pCO2 45 ABG pO2 152 H ABG HCO3 30 H ABG O2 Saturation 100 H ABG Base Excess 5 H Quality Measures Quality Measures none Advance care planning discussed with:: child Assessment & Plan Assessment Current Active Medications: Generic Name Dose Route Start Last Admin Trade Name Freq PRN Reason Stop Dose Admin Acetaminophen 650 mg 02/26/24 21:23 Acetaminophen Lyly 325 Mg/10 Ml Udc PO 03/24/24 20:28 Q6H PRN PAIN SCALE 1-3 (mild Acetylcysteine 3 ml 02/28/24 13:00 Acetylcysteine Rt Lyly 10% 4 Ml Nebu INH 03/29/24 12:59 Q6HRRT JOE Amiodarone HCl 200 mg 02/25/24 10:15 02/28/24 09:00 Amiodarone Hcl 200 Mg Tablet PO 03/26/24 10:14 Not Given BID JOE Diltiazem HCl 30 mg 02/27/24 10:15 02/28/24 09:14 Diltiazem 30 Mg Tablet PO 03/28/24 10:14 Not Given BID JOE Piperacillin/Tazobactam/Dextrose 50 mls @ 12.5 mls/hr 02/25/24 14:00 02/28/24 05:15 Zosyn IV 02/29/24 18:14 12.5 mls/hr Q8HR JOE Administration Levalbuterol HCl 0.63 mg 02/27/24 15:00 02/28/24 06:59 Levalbuterol Rt 0.63 Mg/3 Ml Nebu INH 03/28/24 14:59 0.63 mg Q8HRRT JOE Administration Ondansetron HCl 4 mg 02/22/24 04:09 Ondansetron Inj 2 Mg/Ml Inj 2 Ml IV 03/23/24 04:08 Q6H PRN NAUSEA OR VOMITING Protocol Pantoprazole Sodium 40 mg 02/28/24 10:15 02/28/24 11:00 Pantoprazole Inj 40 Mg Vial IVP 03/29/24 10:14 40 mg QDAY JOE Administration Plan The patient is a 88-year-old male with significant past medical history of gout, hypertension, DVT currently on warfarin who presented to our ED with chief complaint of generalized weakness he is currently being treated for acute symptomatic blood loss anemia secondary to severe Coumadin coagulopathy. # Acute encephalopathy likely hospital induced delirium and polypharmacy. -Patient is agitated since last 2 days, overnight received a dose of olanzapine, quetiapine, haloperidol as of 02/28/2024 -On examination, patient is drowsy not responding to questions/commands -No focal neurological deficits noted -CT head is ordered and showed no acute hemorrhage -ABG on 02/28/2024 showed mild metabolic alkalosis with pH 7.43, pCO2 4 5, bicarb 30, PaO2 152 with oxy mask -Lactate is 2.6. Chest x-ray did not show new infiltrates Plan -Patient is kept on n.p.o. in view of high risk of aspiration and held oral medications for now. -Started on 500 mL NS at 80 mL/h -Glucose checks every 6 hourly as patient is n.p.o. -Will stop delirium causing medications and try to reorient him. # New onset atrial fibrillation with rapid ventricular rate # In the setting of ongoing sepsis, resolved -Around 5:00 PM on 02/23/2024 patient was noted to have atrial fibrillation with rapid ventricular rate -Started on amiodarone as per protocol -Held heparin as patient INR is 2.1 -Echo is done - Grade I diastolic dysfunction. Estimated EF 55-60%. Dilated RV. Normal RV function. Estimated RVSP 80 mm hg. moderate to severe PAH. -Started Lasix 40 Mg IV twice daily in view of fluid overload on 02/23/2024 -On 02/24/2024 around 1:30 PM patient was found to have blood pressure of 90/60 mmHg on routine check but patient did not have any complaints So amiodarone drip was discontinued and Lasix was withheld, 500 cc of NS and 12.5 g of albumin was given. Blood pressure improved to 98/56 mmHg. Plan -On 02/25/2024, heart rate is around 112 and patient is still in A-fib with blood pressure within normal limits, so started on amiodarone 200 Mg twice daily. -Withheld Lasix as patient does not appear to be fluid overloaded -As patient's blood pressures are maintained well and heart rate is still around 110, diltiazem 30 Mg twice daily p.o. is added, held for now as patient is n.p.o # ?Bowel perforation, CT # Pneumoperitoneum #? Peritonitis secondary to perforation # Suspected sepsis, resolved -Came to hospital with complaints of generalized weakness. -At the time of admission, temperature 96.2 ?F, WBC 13.7, -2/4 SIRS criteria plus suspected peritonitis 2/2 perforation in view of severe tenderness in the abdomen and free air under the diaphragm. -On examination, severe tenderness noted on superficial palpation mainly on the right upper quadrant. -Chest x-ray showed air under diaphragm -CT abdomen/pelvis report came back as pneumoperitoneum and immediately Dr. Do was consulted. -CBC as of 02/24/2024 is 23K--> 12/4, 24.5 --> 12/6, 13.3 --02/27, 9. -Lactate is 2.6 as of 02/28/2024. Plan -CT abdomen done on 02/24/2024 still showed pneumoperitoneum which is worsening -Dr. Gomez was consulted and and recommended no procedures on the patient in view of risk of perforation. -Dr. Do was following and recommended conservative management -As patient is not complaining of any pain, not on any pain medications. -Speech language evaluation was ordered and recommended dysphagia 3 diet -Patient is kept on n.p.o. in view of his altered mental status -Will continue Zosyn [02/24-present #Acute symptomatic blood loss anemia 04/25 #Severe Coumadin coagulopathy Patient is taking warfarin for long time for DVT, dose and frequency could not be figured out as patient is very hard of hearing and poor historian Etiology of blood loss unknown, but likely differential is acute GI bleed Presented with hemoglobin 6.0, hematocrit 22.9, PT greater than 63.0, INR out of range and APTT 58.3 Received 1 unit of PRBC in the ED Received 1 dose of vitamin K 10 Mg subcutaneous Received Kcentra 4950 units for Coumadin reversal as INR is out of range Plan -Received total 2 packs of RBC, 1 Pack of FFP, 4950 units of Kcentra, 2 doses of vitamin K 10 Mg, a dose of 40 Mg Lasix on the day of admission -Repeat INR on 02/23/2024 is 2.1 > 12/3, INR is 1.5 > 12/4, INR is 1.6 > 12/5 INR 2 > 12/6 INR 2.6. # Hypokalemia, resolved Likely due to continuous gastric suction and decreased oral intake -Potassium on 02/25/2024 is 3.1 --- potassium phosphate IV is given -Will continue to monitor the electrolytes. #H/O Hypertension Currently patient is hemodynamically stable and blood pressure is within normal limits -Monitor vitals #Hypothermia, resolved Presented with temperature of 96.2 and patient was placed on warmer -Currently temperature is stable # History of BPH -On tamsulosin 0.4 Mg p.o. daily at home Plan -As the blood pressures are labile, will resume tamsulosin once the blood pressures are stable # History of DVT, resolved -Patient was started on warfarin and IVC filter is placed almost 20 years ago -Patient was offered removal of IVC filter 6 years ago but patient denied the procedure -Patient continued to be on warfarin since then and found to have supratherapeutic INR at the time of admission #Leukocytosis, resolved -Likely due to perforation -Daily CBC monitoring # Moderate to severe pulmonary hypertension -Echocardiogram done on 02/22/2024 showed - Normal LV size and function. Grade I diastolic dysfunction. Estimated EF 55-60% Dilated RV. Normal RV function. Estimated RVSP 80 mm hg. moderate to severe PAH. -Likely due to COPD, type III pulmonary hypertension Plan -Will recommend the patient to follow-up in outpatient setting with substation engineer and biofuels research scientist Health maintenance: Dispo: medtele Diet: N.p.o. DVT prophylaxis: SCDs CODE STATUS: DNR/DNI Patient plan of care was discussed with the attending physician, Dr. Orellana. Miguelangel Gould, PGY1 Attending Provider Attestation/Addendum I reviewed labs, imaging, EKG, home medications and prior available records. Face to face evaluation was performed by me. I have personally examined the patient and discussed assessment and plan with the IM team. I reviewed the resident note and agree with the plan with exceptions as below. Hyperactive agitation: New complication. Associated with desaturation. Ordered chest x-ray without showed no interval changes. Ordered ABG that showed no profound hypoxia or hypercarbia. Ordered head CT that showed no acute changes. Likely in the setting of pain versus sleep deprivation. Delirium precautions. Ordered Seroquel/haloperidol as needed. Pneumoperitoneum: CT scan showed extensive pneumoperitoneum possibly from colonic perforation. Patient has minimal symptoms. He had a bowel movement. Discussed with general surgery: Okay to start diet and advance as tolerated. Advance the diet to dysphagia 3. Removed NG tube. Continue IV Zosyn. Management of nausea/pain as needed. Atrial fibrillation with RVR: He is borderline tachycardic. Started p.o. amiodarone. Started p.o. diltiazem. Anticoagulation held due to anticipated surgery. Follow-up PT/PTT. Leukocytosis: Reactive versus in the setting of abdominal infection. Management as above. Trend WBC: Downtrending.
--- NOTE | 2024-02-28 14:04 | ESPR_ITS ---
Documentation for date of: 02/28/24 Subjective Subjective Interval history: Clinically improving Abdomen soft nontender active bowel sounds WBC count is coming down Exam Vital Signs Temp Pulse Resp BP Pulse Ox O2 Del Method O2 Flow Rate 97.6 F 112 H 22 H 128/82 90 L Nasal Cannula 30 02/28/24 08:00 02/28/24 12:00 02/28/24 10:23 02/28/24 08:00 02/28/24 10:23 02/28/24 08:00 02/28/24 10:23 FiO2 65 02/28/24 10:23 Objective Labs 02/29/24 04:35 02/29/24 04:35 Labs: Laboratory Results - last 24 hr 02/28/24 02/28/24 02/28/24 04:51 10:00 11:00 WBC 9.0 RBC 3.74 L Hgb 7.3 L Hct 26.6 L MCV 71 L MCH 19.5 L MCHC 27.4 L RDW Std Deviation 62.8 H Plt Count 192 D Neut % (Auto) 76 Lymph % (Auto) 11 [place] % (Auto) 11 Eos % (Auto) 1 Baso % (Auto) 0 Neut # (Auto) 6.8 Lymph # (Auto) 1.0 [place] # (Auto) 1.0 H Eos # (Auto) 0.1 Baso # (Auto) 0.0 Immature Gran # (Auto) 0.16 H Absolute Nucleated RBC 0.02 H Immature Gran % 2 H Nucleated RBC % 0 Puncture Site Right Radial ABG pH 7.43 ABG pCO2 45 ABG pO2 152 H ABG HCO3 30 H ABG O2 Saturation 100 H ABG Base Excess 5 H FiO2 87 Sodium 140 Potassium 3.6 Chloride 106 Carbon Dioxide 28.2 Anion Gap 6 L BUN 16 Creatinine 0.7 Estim Creat Clear Calc 84.8 eGFR > 60 BUN/Creatinine Ratio 23 H Glucose 124 H Calculated Osmolality 281 Lactic Acid 2.6 H Calcium 8.6 Corrected Calcium 9.4 Total Bilirubin 1.1 AST 17 ALT 15 Alkaline Phosphatase 98 Total Protein 5.6 L Albumin 3.0 L Globulin 2.6 Albumin/Globulin Ratio 1.2 Impressions Impression: # Pneumoperitoneum most likely due to cecal perforation Continue current management ABG Interpretation ABG results: 02/28/24 10:00 ABG pH 7.43 ABG pCO2 45 ABG pO2 152 H ABG HCO3 30 H ABG O2 Saturation 100 H ABG Base Excess 5 H Assessment & Plan A&P Narrative # Pneumoperitoneum with fluid intra-abdominal most likely sealed off perforation Not much in the NGT except small bilious amount Continue conservative management with IV antibiotics and NGT suction No need for surgical intervention at this time Although patient is anemic requiring blood transfusion I will hold off doing any invasive GI workup till patient improves Time Spent With Patient Time: Total time spent is greater than 50% in coordination of care (as documented) at patient's floor/unit and/or counseling patient:
[2024-02-28] MEDS: SODIUM CHLORIDE 0.9% 500 ML 500 ML 80 ML IV (14:16)
[2024-02-28 14:18] LABS: Reflex Lactate? Y
[2024-02-28] MEDS: ACETYLCYSTEINE RT SOL 10% 4 ML NEBU 3 ML INH ×2 (14:38→18:50)
[2024-02-28] MEDS: SODIUM CHLORIDE 0.9% 500 ML 500 ML IV (17:59)
--- NOTE | 2024-02-28 18:52 | PD.NEUROCONS ---
History of Present Illness Data of Consult Requesting Physician: Deep Orellana MD Primary Care Provider: Physician No Primary/Family Consult Narrative History of present illness: Mr. Espinoza is a 88-year-old male with gout, hypertension, DVT currently on warfarin admitted to telemetry with generalized weakness. He is very hard of hearing and is poor historian. He has been having chronic constipation, but denied any dark stool or any blood per rectum. He denied any headache, chest pain, SOB, palpitation, abdominal pain, or any leg swelling. He also denied any fever or chills, nausea or vomiting. Workup in the ER: Vitals were significant for temperature of 96.2, saturating 99% on room air. Labs are significant for hemoglobin 6.0, WBC 11.3, hematocrit 22.9, MCV 63, PT greater than 63.0, INR out of range and APTT 58.3. Patient received vitamin K 10 mg subcutaneous x 1, and was given PCC 4950 units. Patient got admitted to telemetry for further management. He got agitated overnight and had to receive Ativan Haldol and olanzapine. Neurology was consulted to evaluate further. CT head was negative for acute intracranial abnormalities cc:: cc: Deep Orellana MD Review of Systems Review of Systems ROS Unobtainable: unobtainable due to mental status Past Medical History Surgical History OTHER SURGICAL HX: As in the history of present illness Meds Home Medications and Allergies Home Medications ?Medication ?Instructions ?Recorded ?Confirmed ?Type isosorbide mononitrate 30 mg 30 mg PO QAM 02/22/24 02/22/24 History tablet,extended release 24 hr sennosides 8.6 mg-docusate sodium 1 tab PO BID PRN Constipation 02/22/24 02/22/24 History 50 mg tablet (Senexon-S) warfarin 6 mg tablet 6 mg PO QDAY 02/22/24 02/22/24 History aspirin 81 mg tablet 81 mg PO QDAY 02/25/24 02/25/24 History Allergies Allergy/AdvReac Type Severity Reaction Status Date / Time aspirin AdvReac Unknown NOT Verified 12/11/20 11:07 ALLERGIC, BUT TAKES COUMADIN Exam - Neurology Vital Signs Temp Pulse Resp BP Pulse Ox O2 Del Method O2 Flow Rate 97.6 F 104 H 20 101/67 97 High Flow Nasal Cannula 30 02/28/24 16:00 02/28/24 16:00 02/28/24 16:00 02/28/24 16:00 02/28/24 16:00 02/28/24 16:00 02/28/24 16:00 FiO2 45 02/28/24 16:00 Narrative Exam GENERAL APPEARANCE: Well hydrated, well-nourished in no acute distress. HEENT: Normocephalic, atraumatic, extraocular movements intact. Pupils: Equal reacting to light NECK: Supple, no JVD or bruits. CARDIOVASULAR: Heart: S1, S2 heard, regular without S3-S4 or murmur no rubs or gallops. LUNGS/CHEST: Clear to auscultation bilaterally. No rails, rhonchi, or wheezing. Normal inspection. ABDOMEN: Soft, nontender, with normal bowel sounds. No pulsatile masses. No rebound, rigidity, or guarding. Normal inspection and palpation. EXTREMITIES: Normal inspection and palpation. No edema, clubbing or cyanosis. SKIN: Warm and dry without rashes. Normal inspection. MUSCULOSKELETAL: No cervical, thoracic, lumbar or midline bony tenderness. Normal inspection. NEURO: Alert, awake and oriented x1. Cranial nerves: II through XII grossly intact. Speech and language: Normal with no dysarthria or dysphasia. Motor system: Tone and bulk: Normal: Strength: moves all 4 extremities; No pronator drift noted. Deep tendon reflexes: 1+ bilaterally symmetrical. Plantar reflex: Downgoing bilaterally. Sensory system: Intact to pinprick sensation bilaterally. Rest of the exam: Limited, no signs of meningeal irritation noted. PSYCHIATRIC: Anxious, intermittently agitated, at times needing physical and medical restraints. Results Labs 02/29/24 04:35 02/29/24 04:35 Labs: Short CBC 02/28/24 Range/Units 04:51 WBC 9.0 (3.8-10.6) Thou/mm3 Hgb 7.3 L (13.5-16.0) g/dL Hct 26.6 L (41.0-53.0) % Plt Count 192 D (140-440) Thou/mm3 BMP 02/28/24 04:51 Sodium 140 Potassium 3.6 Chloride 106 Carbon Dioxide 28.2 BUN 16 Creatinine 0.7 Glucose 124 H Calcium 8.6 Liver Function 02/28/24 Range/Units 04:51 Total Bilirubin 1.1 (0.3-1.2) mg/dL AST 17 (0-34) U/L ALT 15 (10-49) U/L Alkaline Phosphatase 98 (46-116) U/L Albumin 3.0 L (3.4-4.8) gm/dL ABG Interpretation ABG results: 02/28/24 10:00 ABG pH 7.43 ABG pCO2 45 ABG pO2 152 H ABG HCO3 30 H ABG O2 Saturation 100 H ABG Base Excess 5 H Assessment & Plan Assessment and plan (1) Delirium: Status: Acute Assessment and plan: Patient is stable status post worsening episode of agitation for which he was given Ativan Haldol and olanzapine last night. He is one-on-one supervision, off of restraints. Continue to monitor him closely. (2) Pneumoperitoneum of unknown etiology: Status: Acute Assessment and plan: Seen by GI, conservatively being managed with IV antibiotics.
[2024-02-29] VITALS (19 sets, daily range): BP systolic 98–127; BP diastolic 51–86; PULSE 86–114; RESP 21–37; TEMP 35.7–36.3; O2SAT 84–100
[2024-02-29] MEDS: ACETYLCYSTEINE RT SOL 10% 4 ML NEBU 3 ML INH ×4 (00:10→23:48)
[2024-02-29] MEDS: PIPER/TAZO 3.375 GM 50 ML IV ×2 (05:31→13:33)
[2024-02-29 05:58] LABS: Basophils % (Auto) 0 % (0-2.5); Eosinophils # (Auto) 0.1 Thou/mm3 (0.0-0.5); Eosinophils % (Auto) 1 % (0-10); Hematocrit 28.6 % (41.0-53.0); Immature Granulocytes % (Auto) 1 % (0-0); Immature Granulocytes Auto 0.06 Thou/mm3 (0.00-0.00); Lymphocytes # (Auto) 0.8 Thou/mm3 (1.0-4.8); Lymphocytes % (Auto) 9 % (10-50); Mean Corpuscular Volume 72 fL (80-100); Monocytes # (Auto) 0.6 Thou/mm3 (0.0-0.8); Monocytes % (Auto) 7 % (0-12); Neutrophils # (Auto) 7.5 Thou/mm3 (1.8-7.7); Neutrophils % (Auto) 82 % (37-80); Nucleated Red Blood Cell # 0.02 Thou/mm3 (0.00-0.00); Nucleated Red Blood Cell % 0 /100 WBC (0); Platelet Count 188 Thou/mm3 (140-440); RDW Standard Deviation 62.2 fL (35.1-43.9); White Blood Count 9.1 Thou/mm3 (3.8-10.6)
[2024-02-29 06:14] LABS: Alanine Aminotransferase 13 U/L (10-49); Albumin/Globulin Ratio 1.1 (1.2-2.2); Alkaline Phosphatase 96 U/L (46-116); Anion Gap 10 (7-16); Aspartate Amino Transferase 16 U/L (0-34); BUN/Creatinine Ratio 21 Ratio (12-20); Bilirubin,Total 1.2 mg/dL (0.3-1.2); Blood Urea Nitrogen 17 mg/dL (9-23); Calcium 8.5 mg/dL (8.3-10.6); Calcium (Corrected) 9.3 mg/dL (8.5-10.1); Carbon Dioxide 27.3 mMol/L (20.0-31.0); Chloride 106 mMol/L (98-107); Creatinine (Component) 0.8 mg/dL (0.6-1.3); Estimated Creatinine Clearance 74.3 mL/min (>60); Globulin 2.7 gm/dL (2.3-3.5); Glucose 105 mg/dL (74-106); Osmolality,Calculated 286 (275-295); Potassium 3.6 mMol/L (3.4-5.1); Sodium 143 mMol/L (136-145); Total Protein 5.7 gm/dL (5.7-8.2); eGFR > 60 See Note
[2024-02-29] MEDS: LEVALBUTEROL RT 0.63 MG/3 ML NEBU INH ×3 (07:34→23:48)
[2024-02-29] MEDS: IRON SUCROSE CPLX INJ 20 MG/ML VIAL 5 ML 200 MG IVP (09:16)
[2024-02-29] MEDS: PANTOPRAZOLE INJ 40 MG VIAL IVP (09:16)
[2024-02-29] MEDS: POTASSIUM PHOS 22.5 MMOL in SODIUM CHLORIDE 0.9% 500 ML 500 ML 82.778 MMOL IV (09:39)
--- NOTE | 2024-02-29 12:34 | XR_ITS ---
Examination: CT abdomen with intravenous contrast CT pelvis with intravenous contrast 2-D coronal reconstructions 2-D sagittal reconstructions Date and time of exam:February 29, 2024 1306 hrs. Comparison February 24, 2024 Indications: History extensive pneumoperitoneum this week, worsening abdominal pain today. CTDI: vol (mGy) 24.4 DLP: (mGycm) 1673 Technique: Multiple axial sections of the abdomen and pelvis have been obtained. 64 slice high-resolution scanner used. 3 mm axial sections have been obtained, post intravenous injection 60 cc [id number] 2-D sagittal, coronal reconstructions obtained. Low dose protocols were performed. One or more of the following dose reduction techniques were used; automated exposure control, adjustment of the mA and/or KV according to patient size, use of iterative reconstruction technique. Findings: Moderate right pleural effusion with atelectasis right lower lobe Mild enlargement cardiac contour Massive pneumoperitoneum Free fluid in the abdomen No focal liver or splenic lesions Mildly dense gallbladder No pancreatic or adrenal mass No bowel obstruction Abdominal aortic calcification no aneurysmal dilatation IVC filter Normal appendix Colonic diverticulosis, extensive in the descending colon Urinary bladder contracted around a Lopez catheter Abundant air and stool in the rectosigmoid Severe osteopenia Impression: Moderate right pleural effusion with atelectasis right lower lobe Massive pneumoperitoneum again depicted with free fluid in the abdomen Colonic diverticulosis, no definite diverticulitis Recommend follow-up CT scan abdomen pelvis post oral Gastrografin
--- NOTE | 2024-02-29 12:48 | XR_ITS ---
Examination: Arterial duplex right upper extremity Date and time of exam: February 29, 2024 1340 hrs. Indications: Swelling and discoloration right hand today Findings: Duplex sonographic imaging of the right upper extremity extremity arteries using B-mode/Caceres scale imaging and Doppler spectral analysis and color flow. No elevation of peak systolic velocities involving right subclavian, axillary, brachial, radial or ulnar arteries Impression: No significant arterial stenoses right upper extremity
--- NOTE | 2024-02-29 13:18 | PC.NURSE ---
Transported pt to CT and back with RT via hospital bed. No complications or signs of distress. pt back to room.
[2024-02-29] MEDS: ACETAMINOPHEN SUPP 650 MG SUPP PR (13:33)
[2024-02-29] MEDS: FUROSEMIDE INJ 10 MG/ML 4ML VIAL 40 MG IVP (13:33)
--- NOTE | 2024-02-29 14:49 | PD.RESPRO ---
Documentation for date of: 02/29/24 Subjective Subjective Interval history: Patient was seen and examined bedside. Patient recently received haloperidol, quetiapine, olanzapine <48 hours ago for agitation Patient continues to be drowsy, minimally responsive. Head CT ordered yesterday was negative, he remains on oxygen via HFNC Currently NPO given increased risk of aspiration. Chest x-ray remained unchanged from the previous. C/n glucose checks 6th hrly. Will order repeat CT Abdo/Pelvis to re-evaluate. If mentation improves, will resume diet. Pending neurology recommendations at this time, patient is likely having hospital delirium. Bedside sitter requested, to help re-orient patient q 2 hourly. No restraints. Will PT to help patient sit up or ambulate if possible. Some distal UE cyanosis and paleness noted, will order duplex to evaluate. Son informed of treatment plan, present at bedside. All questions answered throughly. Exam Vital Signs Temp Pulse Resp BP Pulse Ox O2 Del Method O2 Flow Rate 96.6 F L 101 H 21 H 117/86 H 100 High Flow Nasal Cannula 25 02/29/24 12:00 02/29/24 13:55 02/29/24 13:55 02/29/24 13:33 02/29/24 13:55 02/29/24 12:00 02/29/24 13:55 FiO2 50 02/29/24 13:55 Narrative Exam Constitutional Unable to assess, drowsy likely due to polypharmacy HEENT Vision grossly intact. Patent nares. Trachea midline. Respiratory Chest normal on inspection and clear to auscultation bilaterally. Cardiovascular S1 and S2 audible, RRR. No murmurs or carotid bruit. No gross JVD. Distal UE cyanosis Abdominal Soft but tender to palpation in RUQ (patient grimaces on palpation). BS + Genitourinary No bladder tenderness, no flank pain. Normal to palpation. Musculoskeletal Extremities tone within normal limits. No LE edema. Neurological CN II - XII grossly intact. Extremity motor and sensation grossly intact. Skin Warm, dry and intact. Senile purpurae Psychiatric Patient has a good affect, is cooperative. Objective Labs 03/01/24 04:10 03/01/24 04:10 Labs: Laboratory Results - last 24 hr 02/28/24 02/29/24 15:35 04:35 WBC 9.1 RBC 4.00 L Hgb 8.0 L Hct 28.6 L MCV 72 L MCH 20.0 L MCHC 28.0 L RDW Std Deviation 62.2 H Plt Count 188 Neut % (Auto) 82 H Lymph % (Auto) 9 L [place] % (Auto) 7 Eos % (Auto) 1 Baso % (Auto) 0 Neut # (Auto) 7.5 Lymph # (Auto) 0.8 L [place] # (Auto) 0.6 Eos # (Auto) 0.1 Baso # (Auto) 0.0 Immature Gran # (Auto) 0.06 H Absolute Nucleated RBC 0.02 H Immature Gran % 1 H Nucleated RBC % 0 Sodium 143 Potassium 3.6 Chloride 106 Carbon Dioxide 27.3 Anion Gap 10 BUN 17 Creatinine 0.8 Estim Creat Clear Calc 74.3 eGFR > 60 BUN/Creatinine Ratio 21 H Glucose 105 Calculated Osmolality 286 Lactic Acid 2.0 Calcium 8.5 Corrected Calcium 9.3 Total Bilirubin 1.2 AST 16 ALT 13 Alkaline Phosphatase 96 Total Protein 5.7 Albumin 3.0 L Globulin 2.7 Albumin/Globulin Ratio 1.1 L ABG Interpretation ABG results: 02/28/24 10:00 ABG pH 7.43 ABG pCO2 45 ABG pO2 152 H ABG HCO3 30 H ABG O2 Saturation 100 H ABG Base Excess 5 H Quality Measures Quality Measures none Advance care planning discussed with:: patient and child Assessment & Plan Assessment Current Active Medications: Generic Name Dose Route Start Last Admin Trade Name Freq PRN Reason Stop Dose Admin Acetaminophen 650 mg 02/26/24 21:23 Acetaminophen Lyly 325 Mg/10 Ml Udc PO 03/24/24 20:28 Q6H PRN PAIN SCALE 1-3 (mild Acetaminophen 650 mg 02/29/24 12:32 02/29/24 13:33 Acetaminophen Supp 650 Mg Supp FL 03/30/24 12:31 650 mg Q6HR PRN Administration PAIN Acetylcysteine 3 ml 02/28/24 13:00 02/29/24 13:36 Acetylcysteine Rt Lyly 10% 4 Ml Nebu INH 03/29/24 12:59 3 ml Q6HRRT JOE Administration Amiodarone HCl 200 mg 02/25/24 10:15 02/28/24 09:00 Amiodarone Hcl 200 Mg Tablet PO 03/26/24 10:14 Not Given BID JOE Diltiazem HCl 30 mg 02/27/24 10:15 02/28/24 09:14 Diltiazem 30 Mg Tablet PO 03/28/24 10:14 Not Given BID JOE Haloperidol Lactate 2.5 mg 02/28/24 17:32 Haloperidol Lact Inj 5 Mg/Ml Vial IV Q6HR PRN AGITATION (SEVERE) Piperacillin/Tazobactam/Dextrose 50 mls @ 12.5 mls/hr 02/25/24 14:00 02/29/24 13:33 Zosyn IV 02/29/24 18:14 12.5 mls/hr Q8HR JOE Administration Iron Sucrose 200 mg 02/29/24 09:00 02/29/24 09:16 Iron Sucrose Cplx Inj 20 Mg/Ml Vial 5 Ml IVP 03/04/24 09:01 200 mg DAILY JOE Administration Levalbuterol HCl 0.63 mg 02/27/24 15:00 02/29/24 13:53 Levalbuterol Rt 0.63 Mg/3 Ml Nebu INH 03/28/24 14:59 0.63 mg Q8HRRT JOE Administration Ondansetron HCl 4 mg 02/22/24 04:09 Ondansetron Inj 2 Mg/Ml Inj 2 Ml IV 03/23/24 04:08 Q6H PRN NAUSEA OR VOMITING Protocol Pantoprazole Sodium 40 mg 02/28/24 10:15 02/29/24 09:16 Pantoprazole Inj 40 Mg Vial IVP 03/29/24 10:14 40 mg QDAY JOE Administration Plan Mr Espinoza is a 88-year-old male with significant past medical history of gout, hypertension, DVT currently on warfarin who presented to our ED with chief complaint of generalized weakness he is currently being treated for acute symptomatic blood loss anemia secondary to severe Coumadin coagulopathy. 1. Acute metabolic encephalopathy 2. Hospital associated delirium 3. Polypharmacy 4. RT hand cyanosis -Patient is agitated since last 2 days, overnight received a dose of olanzapine, quetiapine, haloperidol as of 02/28/2024 -On examination, patient is drowsy not responding to questions/commands -No focal neurological deficits noted -CT head: no acute hemorrhage -ABG on 02/28/2024 : metabolic alkalosis with pH 7.43, pCO2 4 5, bicarb 30, PaO2 152 with oxy mask -Lactate is 2.6. Chest x-ray did not show new infiltrates -02/28: Continues to be drowsy, minimal responsive to stimulus but less agitated, more oriented to space -02/28 UE duplex: No significant arterial stenoses right upper extremity Plan -Patient is kept on n.p.o. in view of high risk of aspiration and held oral medications for now. -Discontinued all IVF, ordered Lasix 40mg x1 as patient looks somewhat fluid overloaded -Glucose checks every 6 hourly as patient is NPO -Will stop all antipsychotics and try to reorient him, bedside sitter requested -Likely in the setting of pain versus sleep deprivation. Delirium precautions. Ordered Seroquel/haloperidol as needed. -Neurology consulted, pending recommendations 5. Atrial fibrillation with rapid ventricular rate 6. Decompensated Diastolic heart failure, HFpEF 55-60% 7. Pulmonary HTN, moderate to severe, Type III 2/2 COPD - Around 5:00 PM on 02/23/2024 patient was noted to have atrial fibrillation with rapid ventricular rate - EKG: A. Fib with RVR , HR 97-110 - Type: New onset, paroxysmal - Intermittent episodes of palpitations with spontaneous return to sinus - CHADsVASc score = 3 ; 3.6% stroke risk annually - HASBLED score = 4 ; Moderate risk of major bleeding - ECHO 02/21 : Grade I diastolic dysfunction. LVEF 55-60%. Dilated RV. Normal RV. Estimated RVSP 80 mm hg, moderate to severe PAH. Dilated RV. Normal RV function. Estimated RVSP 80 mm hg. - 02/23/2024 : Started Lasix 40 Mg IV twice daily in view of fluid overload - 02/24/2024 @ 1:30 PM : blood pressure 90/60 mmHg -> amiodarone drip discontinued, Lasix held, 12.5 g of albumin x1 -> Blood pressure improved to 98/56 mmHg. - 02/29/2024 : Ordered lasix 40mg x1 Plan: - Rhythm control: Amiodarone 200 mg PO BiD restarted, will monitor vitals closely - Rate control: Diltiazem 30mg PO BID on HOLD as BP not permitting - Anticoagulation: not started as increased risk of bleeding, given perf - Continue to monitor Telemetry - Withheld Lasix as patient does not appear to be fluid overloaded - As patient's blood pressures are maintained well and heart rate is still around 110, diltiazem 30 Mg twice daily p.o. is held for now as patient is n.p.o 8. Sepsis - resolved 9. Peritonitis 10. Bowel perforation, likely sealed off 11. Pneumoperitoneum -Came to hospital with complaints of generalized weakness. -On admission, 04/27 SIRS : temperature 96.2 ?F, WBC 13.7 -Chest x-ray : air under diaphragm, suspected peritonitis 2/2 perforation -On examination, severe tenderness noted on superficial palpation mainly on the right upper quadrant. -CT abdomen/pelvis : 02/23 pneumoperitoneum, Dr Mejia consulted -WBC : 02/24/2024 was 23K --> 9.1 on 02/29/2024 on IV Zosyn -Lactate = 2.6 as of 02/28/2024 -02/[address] Abdo/Pelvis to revaluate Plan -Dr. Gomez consulted and recommended no procedures in view of risk of perforation, suggested perforation has likely sealed off. -Dr. Mejia following and recommended conservative management as patient is medically improving -Diet on HOLD, NPO given risk of aspiration -Will continue Zosyn [02/24 - -CT A/P: Moderate right pleural effusion with atelectasis right lower lobe. Massive pneumoperitoneum again depicted with free fluid in the abdomen. Colonic diverticulosis, no definite diverticulitis -Ordered nurse swallow screen and speech evaluation to assess if to restart diet 12. Acute blood loss anemia 13. Severe coagulopathy 2/2 coumadin use 14. History of DVT - resolved Was on warfarin and IVC filter is placed almost 20 years ago. Offered IVC filter removal 6 years ago but patient denied Continued to be on warfarin since then and found to have supratherapeutic INR at the time of admission. D ose and frequency could not be figured out as patient is very hard of hearing and poor historian Etiology of blood loss unknown, but likely differential is acute GI bleed Presented with hemoglobin 6.0, hematocrit 22.9, PT greater than 63.0, INR out of range and APTT 58.3 Received 1 unit of PRBC in the ED Received 1 dose of vitamin K 10 Mg subcutaneous Received Kcentra 4950 units for Coumadin reversal as INR is out of range Plan -Received total 2 packs of RBC, 1 Pack of FFP, 4950 units of Kcentra, 2 doses of vitamin K 10 Mg, a dose of 40 Mg Lasix on the day of admission -Repeat INR on 02/23/2024 is 2.1 > 12/3, INR is 1.5 > 12/4, INR is 1.6 > 12/5 INR 2 > 12/6 INR 2.6. 15. Primary Hypertension -BP fluctuating 90-120 / 50-70 mmHg Plan -HOLD antihypertensives -Will resume when vitals permit 16. History of BPH -On tamsulosin 0.4 Mg p.o. daily at home, will resume tamsulosin once the blood pressures stable Health maintenance: Dispo: medtele, awaiting neurology recommendations Diet: NPO, 02/28 pending nurse swallow screen and speech swallow eval DVT prophylaxis: SCDs GI prophylaxis: IV Protonix 40mg qD CODE STATUS: DNR/DNI Plan of care discussed with attending Dr Orellana , Juni Pierson MD, PGY 2 Attending Provider Attestation/Addendum I reviewed labs, imaging, EKG, home medications and prior available records. Face to face evaluation was performed by me. I have personally examined the patient and discussed assessment and plan with the IM team. I reviewed the resident note and agree with the plan with exceptions as below. Hyperactive agitation: New complication. Associated with desaturation. Ordered chest x-ray without showed no interval changes. Ordered ABG that showed no profound hypoxia or hypercarbia. Ordered head CT that showed no acute changes. Likely in the setting of pain versus sleep deprivation. Delirium precautions. Ordered Seroquel/haloperidol as needed. Gave Tylenol. Consulted neurology. Appreciate recommendations. Acute hypoxic respiratory failure: Getting worse. Requiring high flow nasal cannula. Ordered CT that showed significant pleural effusion. Ordered IV Lasix. Consulted IR for pleurocentesis. Pneumoperitoneum: CT scan showed extensive pneumoperitoneum possibly from colonic perforation. Patient has minimal symptoms. He had a bowel movement. Discussed with general surgery: Okay to start diet and advance as tolerated. Advance the diet to dysphagia 3. Removed NG tube. Continue IV Zosyn. Management of nausea/pain as needed. Repeated CT abdomen/pelvis showed severe pneumoperitoneum with free fluids. Will keep the patient n.p.o. Appreciate surgery recommendations. Atrial fibrillation with RVR: He is borderline tachycardic. Started p.o. amiodarone. Started p.o. diltiazem. Anticoagulation held due to anticipated surgery. Follow-up PT/PTT. Leukocytosis: Reactive versus in the setting of abdominal infection. Management as above. Trend WBC: Downtrending.
--- NOTE | 2024-02-29 15:13 | ESPR_ITS ---
Documentation for date of: 02/29/24 Subjective Subjective Interval history: Patient is somewhat somnolent Given a lot of medication as he was agitated WBC count is normal Abdomen is soft nontender Exam Vital Signs Temp Pulse Resp BP Pulse Ox O2 Del Method O2 Flow Rate 96.6 F L 101 H 21 H 117/86 H 100 High Flow Nasal Cannula 25 02/29/24 12:00 02/29/24 13:55 02/29/24 13:55 02/29/24 13:33 02/29/24 13:55 02/29/24 12:00 02/29/24 13:55 FiO2 50 02/29/24 13:55 Objective Labs 02/29/24 04:35 02/29/24 04:35 Labs: Laboratory Results - last 24 hr 02/28/24 02/29/24 15:35 04:35 WBC 9.1 RBC 4.00 L Hgb 8.0 L Hct 28.6 L MCV 72 L MCH 20.0 L MCHC 28.0 L RDW Std Deviation 62.2 H Plt Count 188 Neut % (Auto) 82 H Lymph % (Auto) 9 L [place] % (Auto) 7 Eos % (Auto) 1 Baso % (Auto) 0 Neut # (Auto) 7.5 Lymph # (Auto) 0.8 L [place] # (Auto) 0.6 Eos # (Auto) 0.1 Baso # (Auto) 0.0 Immature Gran # (Auto) 0.06 H Absolute Nucleated RBC 0.02 H Immature Gran % 1 H Nucleated RBC % 0 Sodium 143 Potassium 3.6 Chloride 106 Carbon Dioxide 27.3 Anion Gap 10 BUN 17 Creatinine 0.8 Estim Creat Clear Calc 74.3 eGFR > 60 BUN/Creatinine Ratio 21 H Glucose 105 Calculated Osmolality 286 Lactic Acid 2.0 Calcium 8.5 Corrected Calcium 9.3 Total Bilirubin 1.2 AST 16 ALT 13 Alkaline Phosphatase 96 Total Protein 5.7 Albumin 3.0 L Globulin 2.7 Albumin/Globulin Ratio 1.1 L Impressions Impression: Pneumoperitoneum with a series of# perforation doing very well Currently n.p.o. because of the altered mental status and agitated state requiring sedatives ABG Interpretation ABG results: 02/28/24 10:00 ABG pH 7.43 ABG pCO2 45 ABG pO2 152 H ABG HCO3 30 H ABG O2 Saturation 100 H ABG Base Excess 5 H Assessment & Plan A&P Narrative # Pneumoperitoneum with fluid intra-abdominal most likely sealed off perforation Not much in the NGT except small bilious amount Continue conservative management with IV antibiotics and NGT suction No need for surgical intervention at this time Although patient is anemic requiring blood transfusion I will hold off doing any invasive GI workup till patient improves Time Spent With Patient Time: Total time spent is greater than 50% in coordination of care (as documented) at patient's floor/unit and/or counseling patient:
[2024-02-29] MEDS: GLYCERIN, ADULT 1 EA SUPP 1 EACH PR (16:42)
--- NOTE | 2024-02-29 17:12 | PD.RESEVENT ---
Documentation for date of: 02/29/24 Event Note Event Note: Patient seen and examined at bedside at 5 PM. Responsive to stimulus, AO x 1, endorses comprehension of commands. On examination, patient is alert and oriented to being in the hospital. Bilateral upper extremity strength 3/5, lower extremity strength 1/5 Patient was given few sips of thickened water as per dietary recommendations, swallowed comfortably and has a positive cough reflex. Patient asked for more water, and verbalized request clearly to the nurse who is also present at bedside. We will reach out to surgery, to get further recommendations regarding the repeat CT abdomen pelvis done today. PPN ordered for nutrition, likely to be started tomorrow 03/01, increase p.o. intake intolerable or if general surgery advises against this. Plan of care discussed with attending Juni Jim MD, PGY 2
[2024-02-29] MEDS: DEXTROSE 10%-WATER 1000 ML 1,000 ML 60 ML IV (19:30)
[2024-02-29] MEDS: PIPER/TAZO 3.375 GM 3.375 GM/50 ML BAG IV (19:31)
[2024-02-29] MEDS: AMIODARONE HCL 200 MG TABLET PO (21:10)
--- NOTE | 2024-02-29 22:00 | VVPN_ITS ---
Telemedicine visit statement This visit was conducted with the use of phone was obtained on 02/29/24 at 2200. Documentation for date of: 02/29/24 Subjective Subjective Interval history: Patient is in telemetry. He is intermittently confused, agitated. He reportedly answers questions, ask for food items, took ice chips and applesauce. Moves both upper and lower extremities upon commands. Virtual exam Vital Signs Temp Pulse Resp BP Pulse Ox O2 Del Method O2 Flow Rate 97.0 F 105 H 23 H 113/75 100 High Flow Nasal Cannula 25 02/29/24 20:00 02/29/24 21:10 02/29/24 20:00 02/29/24 21:10 02/29/24 20:00 02/29/24 15:48 02/29/24 15:48 FiO2 75 02/29/24 15:48 Objective Labs 02/29/24 04:35 02/29/24 04:35 Labs: Laboratory Results - last 24 hr 02/29/24 04:35 WBC 9.1 RBC 4.00 L Hgb 8.0 L Hct 28.6 L MCV 72 L MCH 20.0 L MCHC 28.0 L RDW Std Deviation 62.2 H Plt Count 188 Neut % (Auto) 82 H Lymph % (Auto) 9 L [place] % (Auto) 7 Eos % (Auto) 1 Baso % (Auto) 0 Neut # (Auto) 7.5 Lymph # (Auto) 0.8 L [place] # (Auto) 0.6 Eos # (Auto) 0.1 Baso # (Auto) 0.0 Immature Gran # (Auto) 0.06 H Absolute Nucleated RBC 0.02 H Immature Gran % 1 H Nucleated RBC % 0 Sodium 143 Potassium 3.6 Chloride 106 Carbon Dioxide 27.3 Anion Gap 10 BUN 17 Creatinine 0.8 Estim Creat Clear Calc 74.3 eGFR > 60 BUN/Creatinine Ratio 21 H Glucose 105 Calculated Osmolality 286 Calcium 8.5 Corrected Calcium 9.3 Total Bilirubin 1.2 AST 16 ALT 13 Alkaline Phosphatase 96 Total Protein 5.7 Albumin 3.0 L Globulin 2.7 Albumin/Globulin Ratio 1.1 L ABG Interpretation ABG results: 02/28/24 10:00 ABG pH 7.43 ABG pCO2 45 ABG pO2 152 H ABG HCO3 30 H ABG O2 Saturation 100 H ABG Base Excess 5 H Assessment & Plan Assessment (1) Delirium: Status: Acute Assessment and plan: Patient is stable status post worsening episode of agitation for which he was given Ativan Haldol and olanzapine 2 nights ago He is one-on-one supervision, off of restraints. Continue to monitor him closely. (2) Pneumoperitoneum of unknown etiology: Status: Acute Assessment and plan: Seen by GI, conservatively being managed with IV antibiotics.
[2024-03-01] VITALS (17 sets, daily range): BP systolic 91–111; BP diastolic 64–78; PULSE 85–114; RESP 20–29; TEMP 35.8–36.4; O2SAT 91–100; BMI 31.5
[2024-03-01 05:21] LABS: Basophils % (Auto) 0 % (0-2.5); Eosinophils # (Auto) 0.1 Thou/mm3 (0.0-0.5); Eosinophils % (Auto) 1 % (0-10); Hematocrit 29.5 % (41.0-53.0); Immature Granulocytes % (Auto) 1 % (0-0); Lymphocytes # (Auto) 0.9 Thou/mm3 (1.0-4.8); Lymphocytes % (Auto) 8 % (10-50); Mean Corpuscular HGB Conc 27.8 g/dl (31.0-37.0); Mean Corpuscular Hemoglobin 20.2 pg (25.0-35.0); Mean Corpuscular Volume 73 fL (80-100); Monocytes # (Auto) 0.5 Thou/mm3 (0.0-0.8); Monocytes % (Auto) 5 % (0-12); Neutrophils # (Auto) 9.7 Thou/mm3 (1.8-7.7); Neutrophils % (Auto) 85 % (37-80); Nucleated Red Blood Cell # 0.02 Thou/mm3 (0.00-0.00); Nucleated Red Blood Cell % 0 /100 WBC (0); Platelet Count 193 Thou/mm3 (140-440); RDW Standard Deviation 65.2 fL (35.1-43.9); Red Blood Count 4.05 Miln/mm3 (4.50-5.90); White Blood Count 11.4 Thou/mm3 (3.8-10.6)
[2024-03-01 05:28] LABS: Hemoglobin 8.2 g/dL (13.5-16.0)
[2024-03-01 05:42] LABS: Albumin, Serum 2.9 gm/dL (3.4-4.8); Anion Gap 7 (7-16); BUN/Creatinine Ratio 20 Ratio (12-20); Blood Urea Nitrogen 18 mg/dL (9-23); Calcium 8.1 mg/dL (8.3-10.6); Carbon Dioxide 32.1 mMol/L (20.0-31.0); Chloride 106 mMol/L (98-107); Creatinine (Component) 0.9 mg/dL (0.6-1.3); Glucose 145 mg/dL (74-106); Osmolality,Calculated 293 (275-295); Phosphorous 3.6 mg/dL (2.4-5.1); Potassium 3.4 mMol/L (3.4-5.1); Sodium 145 mMol/L (136-145); eGFR > 60 See Note
[2024-03-01 05:43] LABS: INR 5.6 (0.9-1.3)
[2024-03-01] MEDS: PIPER/TAZO 3.375 GM 3.375 GM/50 ML BAG IV ×3 (05:59→21:43)
[2024-03-01] MEDS: LEVALBUTEROL RT 0.63 MG/3 ML NEBU INH ×3 (06:31→23:36)
[2024-03-01] MEDS: ACETYLCYSTEINE RT SOL 10% 4 ML NEBU 3 ML INH ×3 (06:32→23:36)
--- NOTE | 2024-03-01 08:16 | PC.NURSE ---
Spoke with Richie SUAREZ, regarding recommendation to change order to US thoracentesis for Pleural effusion per MD.
[2024-03-01] MEDS: PHYTONADIONE INJ 10 MG in SODIUM CHLORIDE 0.9% 50 ML 153 MG IV (09:02)
[2024-03-01] MEDS: IRON SUCROSE CPLX INJ 20 MG/ML VIAL 5 ML 200 MG IVP (09:03)
[2024-03-01] MEDS: POTASSIUM CHL 10 mEq IVPB 10 MEQ/100 ML BAG 60 MEQ IV ×2 (09:03→11:03)
[2024-03-01] MEDS: PANTOPRAZOLE INJ 40 MG VIAL IVP (09:04)
[2024-03-01 09:25] LABS: Triglycerides 81 mg/dL (30-150)
[2024-03-01 09:36] LABS: Lactate (Lactic Acid) 1.8 mMol/L (0.4-2.0)
--- NOTE | 2024-03-01 09:56 | PC.DIETICIAN ---
Nutrition prescription PPN: D5% AA4.25% at 100 ml/hr with 500 ml 20% lipid 3 times a week (Mon-Wed-Fri). Start at 50 ml/hr for 8 hrs, then advance to goal of 100 ml/hr. 2400 ml volume, 102 g AA, 120 g dextrose, 1245 total calories, NPC 837. GIR=0.8 / LIR=0.4
[2024-03-01 10:29] LABS: Procalcitonin 0.46 ng/ml (0.0-0.49)
[2024-03-01 11:09] LABS: Basophils % (Auto) 0 % (0-2.5); Eosinophils # (Auto) 0.1 Thou/mm3 (0.0-0.5); Eosinophils % (Auto) 1 % (0-10); Hematocrit 30.9 % (41.0-53.0); Immature Granulocytes % (Auto) 1 % (0-0); Immature Granulocytes Auto 0.06 Thou/mm3 (0.00-0.00); Lymphocytes # (Auto) 0.8 Thou/mm3 (1.0-4.8); Lymphocytes % (Auto) 8 % (10-50); Mean Corpuscular HGB Conc 27.2 g/dl (31.0-37.0); Mean Corpuscular Volume 73 fL (80-100); Monocytes # (Auto) 0.6 Thou/mm3 (0.0-0.8); Monocytes % (Auto) 6 % (0-12); Neutrophils # (Auto) 8.2 Thou/mm3 (1.8-7.7); Neutrophils % (Auto) 84 % (37-80); Nucleated Red Blood Cell % 0 /100 WBC (0); Platelet Count 213 Thou/mm3 (140-440); RDW Standard Deviation 65.5 fL (35.1-43.9); Red Blood Count 4.21 Miln/mm3 (4.50-5.90); White Blood Count 9.8 Thou/mm3 (3.8-10.6)
[2024-03-01 11:16] LABS: Hemoglobin 8.4 g/dL (13.5-16.0)
--- NOTE | 2024-03-01 11:16 | ESPR_ITS ---
Documentation for date of: 03/01/24 Subjective Subjective Interval history: Patient was seen and examined bedside. Drowsy and not able to respond to commands. When went to see the patient around 8:30 AM patient had a desaturation to 70s and the high flow low is increased to 100%. Later saturations came up to 95. No bowel movements noted since the past 2 days. Prognosis of patient's condition is explained to the son by his bedside. Dr. Mejia is following the patient and recommended no surgery for now Exam Vital Signs Temp Pulse Resp BP Pulse Ox O2 Del Method O2 Flow Rate 97.5 F 89 20 103/75 99 High Flow Nasal Cannula 10 03/01/24 07:53 03/01/24 07:53 03/01/24 07:53 03/01/24 07:53 03/01/24 07:53 03/01/24 07:53 03/01/24 07:53 FiO2 10 03/01/24 07:53 Narrative Exam General: Drowsy and not able to respond to verbal commands. HEENT: Normocephalic, atraumatic, mucous membranes moist. Heart: Regular rate and rhythm, no murmurs. Lungs: Clear to auscultation with no wheezing or crackles. Abdomen: Soft, nondistended.?No guarding or rebound tenderness. No tenderness and bowel sounds are not appreciated Neurologic: Alert and oriented x3, no gross neurological deficit, and patient able to move all 4 extremities. Extremities: No edema. Skin: No rash or ecchymoses. Objective Labs 03/01/24 09:18 03/01/24 04:10 Labs: Laboratory Results - last 24 hr 03/01/24 03/01/24 03/01/24 04:10 05:35 09:18 WBC 11.4 H RBC 4.05 L Hgb 8.2 L Hct 29.5 L MCV 73 L MCH 20.2 L MCHC 27.8 L RDW Std Deviation 65.2 H Plt Count 193 Neut % (Auto) 85 H Lymph % (Auto) 8 L [place] % (Auto) 5 Eos % (Auto) 1 Baso % (Auto) 0 Neut # (Auto) 9.7 H Lymph # (Auto) 0.9 L [place] # (Auto) 0.5 Eos # (Auto) 0.1 Baso # (Auto) 0.0 Immature Gran # (Auto) 0.10 H Absolute Nucleated RBC 0.02 H Immature Gran % 1 H Nucleated RBC % 0 PT 54.0 H* D INR 5.6 H* Sodium 145 Potassium 3.4 Chloride 106 Carbon Dioxide 32.1 H Anion Gap 7 BUN 18 Creatinine 0.9 Estim Creat Clear Calc 66.0 eGFR > 60 BUN/Creatinine Ratio 20 Glucose 145 H Calculated Osmolality 293 Lactic Acid 1.8 Calcium 8.1 L Corrected Calcium 9.0 Phosphorus 3.6 Magnesium 2.0 Albumin 2.9 L Triglycerides 81 Procalcitonin 0.46 ABG Interpretation ABG results: 02/28/24 10:00 ABG pH 7.43 ABG pCO2 45 ABG pO2 152 H ABG HCO3 30 H ABG O2 Saturation 100 H ABG Base Excess 5 H Quality Measures Quality Measures none Advance care planning discussed with:: child Assessment & Plan Assessment Current Active Medications: Generic Name Dose Route Start Last Admin Trade Name Freq PRN Reason Stop Dose Admin Acetaminophen 650 mg 02/26/24 21:23 Acetaminophen Lyly 325 Mg/10 Ml Udc PO 03/24/24 20:28 Q6H PRN PAIN SCALE 1-3 (mild Acetaminophen 650 mg 02/29/24 12:32 02/29/24 13:33 Acetaminophen Supp 650 Mg Supp AR 03/30/24 12:31 650 mg Q6HR PRN Administration PAIN Acetylcysteine 3 ml 02/29/24 23:00 03/01/24 06:32 Acetylcysteine Rt Lyly 10% 4 Ml Nebu INH 03/30/24 22:59 3 ml Q8HRRT JOE Administration Amiodarone HCl 200 mg 02/25/24 10:15 03/01/24 10:00 Amiodarone Hcl 200 Mg Tablet PO 03/26/24 10:14 Not Given BID JOE Diltiazem HCl 30 mg 02/27/24 10:15 02/28/24 09:14 Diltiazem 30 Mg Tablet PO 03/28/24 10:14 Not Given BID JOE Glycerin 1 each 02/29/24 15:53 02/29/24 16:42 Glycerin, Adult 1 Ea Supp AR 1 each QDAY PRN Administration CONSTIPATION Haloperidol Lactate 2.5 mg 02/28/24 17:32 Haloperidol Lact Inj 5 Mg/Ml Vial IV Q6HR PRN AGITATION (SEVERE) Piperacillin/Tazobactam/Dextrose 3.375 gm in 50 mls @ 12.5 mls/hr 03/01/24 06:00 03/01/24 05:59 Zosyn IV 03/08/24 05:59 12.5 mls/hr Q8HR JOE Administration Potassium Chloride 40 meq/ 1,044 mls @ 50 mls/hr 03/01/24 11:00 Calcium Gluconate 1 gm/ IV 03/02/24 07:52 Magnesium Sulfate 2 gm/ .[id number] JOE Multivitamins/Minerals 10 ml/ Amino Acids Fat Emulsion-[place] Oil/Soybean Oil 500 mls @ 32 mls/hr 03/01/24 18:00 Clinopid 20% Iv IV 03/31/24 17:59 [email or web address] Iron Sucrose 200 mg 02/29/24 09:00 03/01/24 09:03 Iron Sucrose Cplx Inj 20 Mg/Ml Vial 5 Ml IVP 03/04/24 09:01 200 mg DAILY JOE Administration Levalbuterol HCl 0.63 mg 02/27/24 15:00 03/01/24 06:31 Levalbuterol Rt 0.63 Mg/3 Ml Nebu INH 03/28/24 14:59 0.63 mg Q8HRRT JOE Administration Midodrine 5 mg 02/29/24 16:39 Midodrine 5 Mg Tablet PO 03/30/24 16:44 TID PRN SBP <90 Ondansetron HCl 4 mg 02/22/24 04:09 Ondansetron Inj 2 Mg/Ml Inj 2 Ml IV 03/23/24 04:08 Q6H PRN NAUSEA OR VOMITING Protocol Pantoprazole Sodium 40 mg 02/28/24 10:15 03/01/24 09:04 Pantoprazole Inj 40 Mg Vial IVP 03/29/24 10:14 40 mg QDAY JOE Administration Plan The patient is a 88-year-old male with significant past medical history of gout, hypertension, DVT currently on warfarin who presented to our ED with chief complaint of generalized weakness he is currently being treated for acute symptomatic blood loss anemia secondary to severe Coumadin coagulopathy. # Acute encephalopathy likely hospital induced delirium and polypharmacy. -Patient is agitated since last 3-4 days, overnight received a dose of olanzapine, quetiapine, haloperidol as of 02/28/2024 -On examination, patient is drowsy not responding to questions/commands -No focal neurological deficits noted -CT head on 02/28/1024 showed no acute hemorrhage -ABG on 02/28/2024 showed mild metabolic alkalosis with pH 7.43, pCO2 4 5, bicarb 30, PaO2 152 with oxy mask. Lactate is 2.6. -Chest x-ray did not show new infiltrates Plan -Patient is kept on n.p.o. in view of high risk of aspiration and held oral medications for now. -Patient is on n.p.o. and started on peripheral parenteral nutrition. -Will stop delirium causing medications and try to reorient him. # New onset atrial fibrillation with rapid ventricular rate # In the setting of ongoing sepsis, resolved -Around 5:00 PM on 02/23/2024 patient was noted to have atrial fibrillation with rapid ventricular rate -Started on amiodarone as per protocol -Held heparin as patient INR is 2.1 -Echo is done - Grade I diastolic dysfunction. Estimated EF 55-60%. Dilated RV. Normal RV function. Estimated RVSP 80 mm hg. moderate to severe PAH. -Started Lasix 40 Mg IV twice daily in view of fluid overload on 02/23/2024 -On 02/24/2024 around 1:30 PM patient was found to have blood pressure of 90/60 mmHg on routine check but patient did not have any complaints So amiodarone drip was discontinued and Lasix was withheld, 500 cc of NS and 12.5 g of albumin was given. Blood pressure improved to 98/56 mmHg. Plan -On 02/25/2024, heart rate is around 112 and patient is still in A-fib with blood pressure within normal limits, so started on amiodarone 200 Mg twice daily. -Withheld Lasix as patient does not appear to be fluid overloaded -As patient's blood pressures are maintained well and heart rate is still around 110, diltiazem 30 Mg twice daily p.o. is added, held for now as patient is n.p.o # ?Bowel perforation, CT # Pneumoperitoneum #? Peritonitis secondary to perforation # Suspected sepsis, resolved -Came to hospital with complaints of generalized weakness. -At the time of admission, temperature 96.2 ?F, WBC 13.7, -2/4 SIRS criteria plus suspected peritonitis 2/2 perforation in view of severe tenderness in the abdomen and free air under the diaphragm. -On examination, severe tenderness noted on superficial palpation mainly on the right upper quadrant. -Chest x-ray showed air under diaphragm -CT abdomen/pelvis report came back as pneumoperitoneum and immediately Dr. Do was consulted. -CBC as of 02/24/2024 is 23K--> /, 24.5 --> 02/26, 13.3 --12/, 9. -Lactate is 2.6 as of 02/28/2024 , Improved to 2 after giving fluids on the same day Plan -CT abdomen done on 02/24/2024 still showed pneumoperitoneum which is worsening -Dr. Gomez was consulted and and recommended no procedures on the patient in view of risk of perforation. -Dr. Do was following and recommended conservative management -As patient is not complaining of any pain, not on any pain medications. -Speech language evaluation was ordered and recommended dysphagia 3 diet -Patient is kept on n.p.o. in view of his altered mental status -Will continue Zosyn [02/24-present #Acute symptomatic blood loss anemia 04/25 #Severe Coumadin coagulopathy Patient is taking warfarin for long time for DVT, dose and frequency could not be figured out as patient is very hard of hearing and poor historian Etiology of blood loss unknown, but likely differential is acute GI bleed Presented with hemoglobin 6.0, hematocrit 22.9, PT greater than 63.0, INR out of range and APTT 58.3 Received 1 unit of PRBC in the ED Received 1 dose of vitamin K 10 Mg subcutaneous Received Kcentra 4950 units for Coumadin reversal as INR is out of range Plan -Received total 2 packs of RBC, 1 Pack of FFP, 4950 units of Kcentra, 2 doses of vitamin K 10 Mg, a dose of 40 Mg Lasix on the day of admission -Repeat INR on 02/23/2024 is 2.1 > 12/3, INR is 1.5 > /4, INR is 1.6 > /5 INR 2 > /6 INR 2.6 >02/27, INR 6.3 # New onset acute coagulopathy -Patient was initially admitted on 02/22/2024 for Coumadin coagulopathy and warfarin was stopped as of 02/22/2024. -Coagulation studies as of 03/01/2024 is PT 60.2, INR 6.3, APTT 66.3, fibrinogen 720, D-dimer 2520. Plan -Patient was given a dose of vitamin K 10 Mg as of 03/01/2024 as his INR is 5.6 but the repeat INR 4 hours later is 6.3 -Will continue to monitor INR and as the patient is hemodynamically stable and low suspicion of active bleeding, no active intervention for now. # Hypokalemia, resolved Likely due to continuous gastric suction and decreased oral intake -Potassium on 02/25/2024 is 3.1 --- potassium phosphate IV is given for -Will continue to monitor the electrolytes. #H/O Hypertension Currently patient is hemodynamically stable and blood pressure is within normal limits -Monitor vitals #Hypothermia, resolved Presented with temperature of 96.2 and patient was placed on warmer -Currently temperature is stable # History of BPH -On tamsulosin 0.4 Mg p.o. daily at home Plan -As the blood pressures are labile, will resume tamsulosin once the blood pressures are stable # History of DVT, resolved -Patient was started on warfarin and IVC filter is placed almost 20 years ago -Patient was offered removal of IVC filter 6 years ago but patient denied the procedure -Patient continued to be on warfarin since then and found to have supratherapeutic INR at the time of admission #Leukocytosis, resolved -Likely due to perforation -Daily CBC monitoring # Moderate to severe pulmonary hypertension -Echocardiogram done on 02/22/2024 showed - Normal LV size and function. Grade I diastolic dysfunction. Estimated EF 55-60% Dilated RV. Normal RV function. Estimated RVSP 80 mm hg. moderate to severe PAH. 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 DVT prophylaxis: SCDs CODE STATUS: DNR/DNI Patient plan of care was discussed with the attending physician, Dr. Orellana and senior resident Dr. Dangelo Gould, PGY1 L Mr Espinoza is a 88-year-old male with significant past medical history of gout, hypertension, DVT currently on warfarin who presented to our ED with chief complaint of generalized weakness, he was blood loss anemia secondary to severe Coumadin coagulopathy, patient was initially improving after transfusions, however condition deteriorated long-term through the hospitalization when he was found to have possible bowel perforation. Gastroenterology and general surgery were consulted. As per recommendations patient lab work progressively showed improvement and he clinically looked better, therefore likely perforation sealed off given benign abdominal exam as well. However over the last 48 hours patient has significantly dietary related clinically as well as on lab work, repeat CT abdomen pelvis from 02/28 shows worsening of the perforation, therefore n.p.o. and started on PPN for now. Neurology was consulted for poor mentation after multiple antipsychotics were given overnight, patient's mentation is improving slowly however he continues to remain quite drowsy. We hope for improvement on PPN. Patient was given IV vitamin K x 1 today for INR of 5.6 --> 6.3 (previously 1.5?2 due to Coumadin). Coagulation panel reevaluated, unlikely to be DIC given elevated fibrinogen levels of 720. We will continue to monitor closely and transfuse as necessary, D-dimer elevated at 2520, PT > 60 seconds and APTT > 66 seconds and 03/01/2024. Will continue IV Zosyn for now, per general surgery recommendations, patient is not a candidate for surgery at this time given significant coagulopathy. Will have goals of care discussion with the son when present at bedside. Patient examined and case discussed with the team including attending physician. Note reviewed, I agree with the care plan as documented. - Juni Pierson MD, PGY 2 Attending Provider Attestation/Addendum I reviewed labs, imaging, EKG, home medications and prior available records. Face to face evaluation was performed by me. I have personally examined the patient and discussed assessment and plan with the IM team. I reviewed the resident note and agree with the plan with exceptions as below. Hyperactive agitation: Improved. Associated with desaturation. Ordered chest x-ray without showed no interval changes. Ordered ABG that showed no profound hypoxia or hypercarbia. Ordered head CT that showed no acute changes. Likely in the setting of pain versus sleep deprivation. Delirium precautions. Ordered Seroquel/haloperidol as needed. Gave Tylenol. Consulted neurology. Appreciate recommendations. Acute hypoxic respiratory failure: Still requiring high flow nasal cannula. Ordered CT that showed significant pleural effusion. Ordered IV Lasix. Consulted IR for pleurocentesis. Cannot perform the pleurocentesis given the elevated INR. Pneumoperitoneum: CT scan showed extensive pneumoperitoneum possibly from colonic perforation. Removed NG tube. Started IV Zosyn. Management of nausea/pain as needed. Kept the patient n.p.o. and started PPN. Repeated CT abdomen/pelvis showed severe pneumoperitoneum with free fluids. Discussed with general surgery: Given the elevated INR, he is not a candidate for surgery. Recommended goals of care discussion and hospice care. Ordered Gastrografin study. Elevated INR: He is off anticoagulation. Etiology is unclear. Monitor for bleeding. Monitor PTT/INR. Atrial fibrillation with RVR: He is borderline tachycardic. Started p.o. amiodarone. Started p.o. diltiazem. Anticoagulation held due to elevated INR. Ordered DIC panel. Leukocytosis: Reactive versus in the setting of abdominal infection. Management as above. Trend WBC: Downtrending.
[2024-03-01 11:31] LABS: Partial Thromboplastin Time 66.3 Seconds (22.0-36.0)
[2024-03-01 11:33] LABS: D-Dimer 2520 ng/mL (<600)
[2024-03-01 11:39] LABS: INR 6.3 (0.9-1.3)
[2024-03-01 11:40] LABS: Prothrombin Time 60.2 Seconds (9.0-12.2)
[2024-03-01 11:41] LABS: Fibrinogen 720 mg/dL (175-375)
--- NOTE | 2024-03-01 11:42 | PD.SURPROG ---
Documentation for date of: 03/01/24 Subjective Subjective Brief History: 88M with HTN, gout, DVT in remote past with IVC filter and on warfarin who called 911 late last night due to weakness. He was found to have Hgb 6, Wbc 11.3 and PTT 58. Pt has been transfused with appropriate response, however due to abdominal pain underwent CT AP which shows concern for pneumoperitoneum. Pt has remained afebrile with normal vital signs PMH: HTN, gout, DVT in remote past PSHx: IVC filter Meds: includes warfarin Allergies: NKDA Narrative: Requiring increased oxygen today and is more lethargic, underwent CT head 02/27 showing no acute changes and CT AP yesterday showing persistent pneumoperitoneum. Remaining afebrile, last BM on 02/25 Exam Vital Signs Temp Pulse Resp BP Pulse Ox O2 Del Method O2 Flow Rate 97.5 F 89 20 103/75 99 High Flow Nasal Cannula 10 03/01/24 07:53 03/01/24 07:53 03/01/24 07:53 03/01/24 07:53 03/01/24 07:53 03/01/24 07:53 03/01/24 07:53 FiO2 10 03/01/24 07:53 Constitutional Constitutional: no acute distress Results Results: Laboratory Laboratory results: results reviewed Assessment & Plan Plan 88M with HTN, gout, remote DVT on warfarin who presented with weakness and findings of anemia, additionally with abdominal pain and pneumoperitoneum on CT. Pt has remained overall clinically well, with no pain or fever, and has consistently had a benign abdominal exam indicating that surgery would not likely improve his outcome No surgical intervention indicated Consider goals of care discussion given pt's overall status Please contact me with questions or concerns as needed
[2024-03-01] MEDS: [UNRECOGNIZED DRUG - OTHER] IV (12:59)
[2024-03-01] MEDS: CALCIUM GLUCONATE IV (12:59)
[2024-03-01] MEDS: POT CHL ADDITIVE IV (12:59)
[2024-03-01 15:04] LABS: Alanine Aminotransferase 16 U/L (10-49); Albumin, Serum 2.5 gm/dL (3.4-4.8); Alkaline Phosphatase 87 U/L (46-116); Aspartate Amino Transferase 19 U/L (0-34); Bilirubin,Direct 0.6 mg/dL (0.0-0.3); Bilirubin,Total 0.9 mg/dL (0.3-1.2); Total Protein 4.9 gm/dL (5.7-8.2)
[2024-03-01] MEDS: FAT EMUL/OLIVE/SOY/PHOS 20% IV 500 ML 32 ML IV (17:51)
--- NOTE | 2024-03-01 20:02 | PC.NURSE ---
Called pharmacy and requested TPN bag replacement for tonight. States they will be sending up TPN.
--- NOTE | 2024-03-01 20:03 | PC.NURSE ---
Called CT; states is not available tonight and CT abdomen will have to take place tomorrow.
[2024-03-01] MEDS: AMIODARONE HCL 200 MG TABLET PO (21:43)
--- NOTE | 2024-03-01 21:58 | ESPR_ITS ---
Documentation for date of: 03/01/24 Subjective Subjective Interval history: WBC count 9.8 Hemoglobin hematocrit 8.4 and 30.9 Abdomen soft nontender No indication for surgical intervention No plans for any invasive GI workup Exam Vital Signs Temp Pulse Resp BP Pulse Ox O2 Del Method O2 Flow Rate 97.0 F 114 H 20 105/71 96 High Flow Nasal Cannula 10 03/01/24 20:00 03/01/24 21:43 03/01/24 20:00 03/01/24 21:43 03/01/24 20:00 03/01/24 20:00 03/01/24 20:00 FiO2 40 03/01/24 20:00 Objective Labs 03/01/24 09:18 03/01/24 04:10 Labs: Laboratory Results - last 24 hr 03/01/24 03/01/24 03/01/24 04:10 05:35 09:18 WBC 11.4 H 9.8 RBC 4.05 L 4.21 L Hgb 8.2 L 8.4 L Hct 29.5 L 30.9 L MCV 73 L 73 L MCH 20.2 L 20.0 L MCHC 27.8 L 27.2 L RDW Std Deviation 65.2 H 65.5 H Plt Count 193 213 Neut % (Auto) 85 H 84 H Lymph % (Auto) 8 L 8 L [place] % (Auto) 5 6 Eos % (Auto) 1 1 Baso % (Auto) 0 0 Neut # (Auto) 9.7 H 8.2 H Lymph # (Auto) 0.9 L 0.8 L [place] # (Auto) 0.5 0.6 Eos # (Auto) 0.1 0.1 Baso # (Auto) 0.0 0.0 Immature Gran # (Auto) 0.10 H 0.06 H Absolute Nucleated RBC 0.02 H 0.00 Immature Gran % 1 H 1 H Nucleated RBC % 0 0 PT 54.0 H* D 60.2 H* D INR 5.6 H* 6.3 H* APTT 66.3 H D Fibrinogen 720 H* D-Dimer 2520 H Sodium 145 Potassium 3.4 Chloride 106 Carbon Dioxide 32.1 H Anion Gap 7 BUN 18 Creatinine 0.9 Estim Creat Clear Calc 66.0 eGFR > 60 BUN/Creatinine Ratio 20 Glucose 145 H Calculated Osmolality 293 Lactic Acid 1.8 Calcium 8.1 L Corrected Calcium 9.0 Phosphorus 3.6 Magnesium 2.0 Total Bilirubin 0.9 Direct Bilirubin 0.6 H AST 19 ALT 16 Alkaline Phosphatase 87 Total Protein 4.9 L Albumin 2.9 L 2.5 L Triglycerides 81 Procalcitonin 0.46 Impressions Impression: # Pneumoperitoneum with a benign appearing abdomen on clinical examination # Resolving leukocytosis # Drop in hemoglobin hematocrit requiring transfusion but now the hemoglobin has stabilized around 8.4 No plans for any invasive GI workup ABG Interpretation ABG results: 02/28/24 10:00 ABG pH 7.43 ABG pCO2 45 ABG pO2 152 H ABG HCO3 30 H ABG O2 Saturation 100 H ABG Base Excess 5 H Assessment & Plan A&P Narrative # Pneumoperitoneum with fluid intra-abdominal most likely sealed off perforation Not much in the NGT except small bilious amount Continue conservative management with IV antibiotics and NGT suction No need for surgical intervention at this time Although patient is anemic requiring blood transfusion I will hold off doing any invasive GI workup till patient improves Time Spent With Patient Time: Total time spent is greater than 50% in coordination of care (as documented) at patient's floor/unit and/or counseling patient:
--- NOTE | 2024-03-01 22:41 | PD.NEUROPROG ---
Documentation for date of: 03/01/24 Subjective Subjective Interval history: Mr. Espinoza is seen in telemetry at the bedside, became more awake and alert, asking for food to eat and water to drink. Exam - Neurology Vital Signs Temp Pulse Resp BP Pulse Ox O2 Del Method O2 Flow Rate 97.0 F 114 H 20 105/71 96 High Flow Nasal Cannula 10 03/01/24 20:00 03/01/24 21:43 03/01/24 20:00 03/01/24 21:43 03/01/24 20:00 03/01/24 20:00 03/01/24 20:00 FiO2 40 03/01/24 20:00 Narrative Exam GENERAL APPEARANCE: Well hydrated, well-nourished in no acute distress. HEENT: Normocephalic, atraumatic, extraocular movements intact. Pupils: Equal reacting to light NECK: Supple, no JVD or bruits. CARDIOVASULAR: Heart: S1, S2 heard, regular without S3-S4 or murmur no rubs or gallops. LUNGS/CHEST: Clear to auscultation bilaterally. No rails, rhonchi, or wheezing. Normal inspection. ABDOMEN: Soft, nontender, with normal bowel sounds. No pulsatile masses. No rebound, rigidity, or guarding. Normal inspection and palpation. EXTREMITIES: Normal inspection and palpation. No edema, clubbing or cyanosis. SKIN: Warm and dry without rashes. Normal inspection. MUSCULOSKELETAL: No cervical, thoracic, lumbar or midline bony tenderness. Normal inspection. NEURO: Alert, awake and oriented x2. Cranial nerves: II through XII grossly intact. Speech and language: Normal with no dysarthria or dysphasia. Motor system: Tone and bulk: Normal: Strength: moves all 4 extremities; No pronator drift noted. Deep tendon reflexes: 1+ bilaterally symmetrical. Plantar reflex: Downgoing bilaterally. Sensory system: Intact to pinprick sensation bilaterally. Rest of the exam: Limited, no signs of meningeal irritation noted. PSYCHIATRIC: Anxious, intermittently agitated, at times needing physical and medical restraints. Objective Labs 03/01/24 09:18 03/01/24 04:10 Labs: Laboratory Results - last 24 hr 03/01/24 03/01/24 03/01/24 04:10 05:35 09:18 WBC 11.4 H 9.8 RBC 4.05 L 4.21 L Hgb 8.2 L 8.4 L Hct 29.5 L 30.9 L MCV 73 L 73 L MCH 20.2 L 20.0 L MCHC 27.8 L 27.2 L RDW Std Deviation 65.2 H 65.5 H Plt Count 193 213 Neut % (Auto) 85 H 84 H Lymph % (Auto) 8 L 8 L [place] % (Auto) 5 6 Eos % (Auto) 1 1 Baso % (Auto) 0 0 Neut # (Auto) 9.7 H 8.2 H Lymph # (Auto) 0.9 L 0.8 L [place] # (Auto) 0.5 0.6 Eos # (Auto) 0.1 0.1 Baso # (Auto) 0.0 0.0 Immature Gran # (Auto) 0.10 H 0.06 H Absolute Nucleated RBC 0.02 H 0.00 Immature Gran % 1 H 1 H Nucleated RBC % 0 0 PT 54.0 H* D 60.2 H* D INR 5.6 H* 6.3 H* APTT 66.3 H D Fibrinogen 720 H* D-Dimer 2520 H Sodium 145 Potassium 3.4 Chloride 106 Carbon Dioxide 32.1 H Anion Gap 7 BUN 18 Creatinine 0.9 Estim Creat Clear Calc 66.0 eGFR > 60 BUN/Creatinine Ratio 20 Glucose 145 H Calculated Osmolality 293 Lactic Acid 1.8 Calcium 8.1 L Corrected Calcium 9.0 Phosphorus 3.6 Magnesium 2.0 Total Bilirubin 0.9 Direct Bilirubin 0.6 H AST 19 ALT 16 Alkaline Phosphatase 87 Total Protein 4.9 L Albumin 2.9 L 2.5 L Triglycerides 81 Procalcitonin 0.46 ABG Interpretation ABG results: 02/28/24 10:00 ABG pH 7.43 ABG pCO2 45 ABG pO2 152 H ABG HCO3 30 H ABG O2 Saturation 100 H ABG Base Excess 5 H Assessment & Plan Assessment and plan (1) Delirium: Status: Acute Assessment and plan: Patient is stable status post worsening episode of agitation for which he was given Ativan Haldol and olanzapine last night. He is off of one-on-one supervision, off of restraints. Continue to monitor him closely. (2) Pneumoperitoneum of unknown etiology: Status: Acute Assessment and plan: Seen by GI, conservatively being managed with IV antibiotics.
[2024-03-02] VITALS (16 sets, daily range): BP systolic 99–126; BP diastolic 61–75; PULSE 84–108; RESP 21–36; TEMP 36.1–36.4; O2SAT 90–100; BMI 31.5; BMI 12.0
[2024-03-02] MEDS: POT CHL ADDITIVE IV ×2 (03:22→14:46)
[2024-03-02] MEDS: MULTIVITAMIN IV (03:22)
[2024-03-02] MEDS: CALCIUM GLUCONATE IV (03:22)
[2024-03-02] MEDS: [UNRECOGNIZED DRUG - OTHER] IV (03:22)
[2024-03-02] MEDS: PIPER/TAZO 3.375 GM 3.375 GM/50 ML BAG IV ×3 (05:10→21:28)
[2024-03-02] MEDS: LEVALBUTEROL RT 0.63 MG/3 ML NEBU INH ×3 (06:03→22:36)
--- NOTE | 2024-03-02 08:00 | XR_ITS ---
Examination: Gastrografin enema with KUB 6 spot fluoroscopic films of the abdomen Exam date and time: March 02, 2024 1227 hours INDICATIONS: Unexplained massive pneumoperitoneum TECHNIQUE AND FINDINGS: Dilute Gastrografin administered with 6 spot fluoroscopic films of the colon obtained Fluoroscopy 0.3 minute radiation dose 33.18 milligray IMPRESSION: Dilute Gastrografin introduced into the colon with follow-up CT abdomen pelvis to be obtained
[2024-03-02 08:17] LABS: Basophils % (Auto) 0 % (0-2.5); Eosinophils # (Auto) 0.1 Thou/mm3 (0.0-0.5); Eosinophils % (Auto) 1 % (0-10); Hematocrit 30.9 % (41.0-53.0); Immature Granulocytes % (Auto) 1 % (0-0); Immature Granulocytes Auto 0.12 Thou/mm3 (0.00-0.00); Lymphocytes # (Auto) 1.3 Thou/mm3 (1.0-4.8); Lymphocytes % (Auto) 12 % (10-50); Mean Corpuscular HGB Conc 27.5 g/dl (31.0-37.0); Mean Corpuscular Hemoglobin 20.4 pg (25.0-35.0); Mean Corpuscular Volume 74 fL (80-100); Monocytes # (Auto) 0.9 Thou/mm3 (0.0-0.8); Monocytes % (Auto) 8 % (0-12); Neutrophils # (Auto) 8.4 Thou/mm3 (1.8-7.7); Neutrophils % (Auto) 78 % (37-80); Nucleated Red Blood Cell # 0.03 Thou/mm3 (0.00-0.00); Nucleated Red Blood Cell % 0 /100 WBC (0); Platelet Count 213 Thou/mm3 (140-440); RDW Standard Deviation 64.3 fL (35.1-43.9); Red Blood Count 4.17 Miln/mm3 (4.50-5.90); White Blood Count 10.8 Thou/mm3 (3.8-10.6)
[2024-03-02] MEDS: PANTOPRAZOLE INJ 40 MG VIAL IVP (08:31)
[2024-03-02] MEDS: AMIODARONE HCL 200 MG TABLET PO ×2 (08:31→20:49)
[2024-03-02 08:41] LABS: Alanine Aminotransferase 10 U/L (10-49); Albumin, Serum 2.6 gm/dL (3.4-4.8); Albumin/Globulin Ratio 0.8 (1.2-2.2); Alkaline Phosphatase 88 U/L (46-116); Anion Gap 7 (7-16); Aspartate Amino Transferase 14 U/L (0-34); BUN/Creatinine Ratio 27 Ratio (12-20); Bilirubin,Total 1.1 mg/dL (0.3-1.2); Blood Urea Nitrogen 19 mg/dL (9-23); Calcium 8.5 mg/dL (8.3-10.6); Calcium (Corrected) 9.6 mg/dL (8.5-10.1); Carbon Dioxide 30.9 mMol/L (20.0-31.0); Chloride 106 mMol/L (98-107); Creatinine (Component) 0.7 mg/dL (0.6-1.3); Estimated Creatinine Clearance 84.8 mL/min (>60); Globulin 3.1 gm/dL (2.3-3.5); Glucose 137 mg/dL (74-106); Magnesium 2.1 mg/dL (1.6-2.6); Osmolality,Calculated 291 (275-295); Potassium 3.6 mMol/L (3.4-5.1); Sodium 144 mMol/L (136-145); Total Protein 5.7 gm/dL (5.7-8.2); eGFR > 60 See Note
[2024-03-02] MEDS: IRON SUCROSE CPLX INJ 20 MG/ML VIAL 5 ML 200 MG IVP (08:43)
[2024-03-02 08:49] LABS: Hemoglobin 8.5 g/dL (13.5-16.0)
[2024-03-02 08:54] LABS: INR 1.3 (0.9-1.3); Partial Thromboplastin Time 43.6 Seconds (22.0-36.0); Prothrombin Time 13.7 Seconds (9.0-12.2)
--- NOTE | 2024-03-02 10:09 | XR_ITS ---
Examination: AP chest single view Technique one AP portable upright chest single view Exam date and time: March 02, 2024 10:53 AM Comparison February 28, 2024 INDICATIONS: Difficulty breathing this week. FINDINGS: Massive free air beneath the right hemidiaphragm Bibasilar pneumonia Mild prominence cardiac contour IMPRESSION: Significant bibasilar pneumonia
--- NOTE | 2024-03-02 11:10 | XR_ITS ---
Examination: Ultrasound right hemithorax Ultrasound left hemithorax Exam date and time: March 02, 2024 1319 hours INDICATIONS: History difficulty breathing this week, bibasilar pneumonia with pleural fluid on chest x-ray March 02, 2024 Technique an findings: Sonographic images right and left hemithoraces obtained Minimal bilateral pleural fluid IMPRESSION: Minimal bilateral pleural fluid
--- NOTE | 2024-03-02 12:36 | XR_ITS ---
Examination: CT abdomen and pelvis without contrast. Coronal 3-D reconstructions. Sagittal 2-D reconstructions. Date and time of exam:March 02, 2024 1238 hours INDICATIONS: Massive pneumoperitoneum this week CTDI: vol (mGy): 10.7 DLP: (mGycm): 763 Technique: Axial images of the abdomen have been obtained, 3 mm slice thickness Intravenous contrast material has not been administered. Low dose protocols were performed. One or more of the following dose reduction techniques were used; automated exposure control, adjustment of the mA and/or KV according to patient size, use of iterative reconstruction technique. Findings: Mild right minimal left pleural fluid Pneumonia and/or atelectasis at the lung bases Massive pneumoperitoneum No focal liver or splenic lesion Hyperdense gallbladder Contrast opacification of the colon Amos extravasation of contrast from the colon is not identified Minimal free fluid in the abdomen IMPRESSION: Colon is diffusely filled with Gastrografin with no abnormal extravasation of contrast in the colon noted Consider follow-up CT abdomen pelvis post oral administration Gastrografin to assess stomach and small bowel
[2024-03-02] MEDS: POTASSIUM PHOS IV (14:46)
[2024-03-02] MEDS: MAGNESIUM SULF IV (14:46)
[2024-03-02] MEDS: [UNRECOGNIZED DRUG - OTHER] IV (14:46)
--- NOTE | 2024-03-02 14:54 | ESPR_ITS ---
<Statement entered by Yue Walton MD - 03/03/24 07:51> Patient was seen and examined by me personally. I agree with most of the assessment and plan as discussed with the application internship physician, and my attending, Dr. Orellana. F/U repeat abdominal imaging. Coags improved. Mentation with mild improvement, diet advanced. Will have GOC discussion with patient's son, who has previously mentioned he would not like aggressive measures, and focus on quality of life. Yue Walton MD, PGY-3 Documentation for date of: 03/02/24 Subjective Subjective Interval history: Patient was seen and examined bedside. Patient overall condition got better. Able to recognize her son and respond appropriately to the questions. Still abdominal tenderness noted mainly on the right half of the abdomen. Vitals are stable and patient is on high flow oxygen. Coagulation studies are within normal limits. Will continue to monitor patient's condition and will continue antibiotics for now. As the patient is able to tolerate applesauce, started on pur?ed diet and will advance the diet as the patient is able to tolerate it. Exam Vital Signs Temp Pulse Resp BP Pulse Ox O2 Del Method O2 Flow Rate 97.1 F 86 31 H 105/63 94 L High Flow Nasal Cannula 10 03/02/24 12:00 03/02/24 12:00 03/02/24 12:00 03/02/24 12:00 03/02/24 12:00 03/02/24 12:00 03/02/24 12:00 FiO2 40 03/02/24 12:00 Narrative Exam General: Awake. Responding appropriately to the questions. HEENT: Normocephalic, atraumatic, mucous membranes moist. Heart: Irregular heart rate and rhythm, no murmurs. Lungs: Overall decreased breath sounds noted bilaterally with diffuse wheeze. Abdomen: Soft, nondistended, moderate tenderness noted throughout the abdomen more on the right side. ?No guarding or rebound tenderness. Neurologic: Alert and oriented x3, no gross neurological deficit, and patient able to move all 4 extremities. Extremities: No edema. Skin: No rash or ecchymoses. Objective Labs 03/02/24 07:43 03/03/24 05:09 Labs: Laboratory Results - last 24 hr 03/01/24 03/02/24 09:18 07:43 WBC 10.8 H RBC 4.17 L Hgb 8.5 L Hct 30.9 L MCV 74 L MCH 20.4 L MCHC 27.5 L RDW Std Deviation 64.3 H Plt Count 213 Neut % (Auto) 78 Lymph % (Auto) 12 [place] % (Auto) 8 Eos % (Auto) 1 Baso % (Auto) 0 Neut # (Auto) 8.4 H Lymph # (Auto) 1.3 [place] # (Auto) 0.9 H Eos # (Auto) 0.1 Baso # (Auto) 0.0 Immature Gran # (Auto) 0.12 H Absolute Nucleated RBC 0.03 H Immature Gran % 1 H Nucleated RBC % 0 PT 13.7 H D INR 1.3 APTT 43.6 H D Sodium 144 Potassium 3.6 Chloride 106 Carbon Dioxide 30.9 Anion Gap 7 BUN 19 Creatinine 0.7 Estim Creat Clear Calc 84.8 eGFR > 60 BUN/Creatinine Ratio 27 H Glucose 137 H Calculated Osmolality 291 Calcium 8.5 Corrected Calcium 9.6 Magnesium 2.1 Total Bilirubin 0.9 1.1 Direct Bilirubin 0.6 H AST 19 14 ALT 16 10 Alkaline Phosphatase 87 88 Total Protein 4.9 L 5.7 Albumin 2.5 L 2.6 L Globulin 3.1 Albumin/Globulin Ratio 0.8 L ABG Interpretation ABG results: 02/28/24 10:00 ABG pH 7.43 ABG pCO2 45 ABG pO2 152 H ABG HCO3 30 H ABG O2 Saturation 100 H ABG Base Excess 5 H Quality Measures Quality Measures none Advance care planning discussed with:: child Assessment & Plan Assessment Current Active Medications: Generic Name Dose Route Start Last Admin Trade Name Freq PRN Reason Stop Dose Admin Acetaminophen 650 mg 02/26/24 21:23 Acetaminophen Lyly 325 Mg/10 Ml Udc PO 03/24/24 20:28 Q6H PRN PAIN SCALE 1-3 (mild Acetaminophen 650 mg 02/29/24 12:32 02/29/24 13:33 Acetaminophen Supp 650 Mg Supp [place] 03/30/24 12:31 650 mg Q6HR PRN Administration PAIN Acetylcysteine 3 ml 02/29/24 23:00 03/02/24 07:21 Acetylcysteine Rt Lyly 10% 4 Ml Nebu INH 03/30/24 22:59 Not Given Q8HRRT JOE Amiodarone HCl 200 mg 02/25/24 10:15 03/02/24 08:31 Amiodarone Hcl 200 Mg Tablet PO 03/26/24 10:14 200 mg BID JOE Administration Diltiazem HCl 30 mg 02/27/24 10:15 02/28/24 09:14 Diltiazem 30 Mg Tablet PO 03/28/24 10:14 Not Given BID JOE Glycerin 1 each 02/29/24 15:53 02/29/24 16:42 Glycerin, Adult 1 Ea Supp [place] 1 each QDAY PRN Administration CONSTIPATION Haloperidol Lactate 2.5 mg 02/28/24 17:32 Haloperidol Lact Inj 5 Mg/Ml Vial IV Q6HR PRN AGITATION (SEVERE) Piperacillin/Tazobactam/Dextrose 3.375 gm in 50 mls @ 12.5 mls/hr 03/01/24 06:00 03/02/24 05:10 Zosyn IV 03/08/24 05:59 12.5 mls/hr Q8HR JOE Administration Fat Emulsion-[place] Oil/Soybean Oil 500 mls @ 32 mls/hr 03/01/24 18:00 03/01/24 17:51 Clinopid 20% Iv IV 03/31/24 17:59 32 mls/hr [email or web address] JOE Administration Potassium Chloride 40 meq/ 1,026 mls @ 100 mls/hr 03/02/24 13:30 Potassium Phosphate 12 mmol/ IV 03/03/24 20:16 Magnesium Sulfate 1 gm/ Amino .[id number] JOE Acids Iron Sucrose 200 mg 02/29/24 09:00 03/02/24 08:43 Iron Sucrose Cplx Inj 20 Mg/Ml Vial 5 Ml IVP 03/04/24 09:01 200 mg DAILY JOE Administration Levalbuterol HCl 0.63 mg 02/27/24 15:00 03/02/24 06:03 Levalbuterol Rt 0.63 Mg/3 Ml Nebu INH 03/28/24 14:59 0.63 mg Q8HRRT JOE Administration Midodrine 5 mg 02/29/24 16:39 Midodrine 5 Mg Tablet PO 03/30/24 16:44 TID PRN SBP <90 Ondansetron HCl 4 mg 02/22/24 04:09 Ondansetron Inj 2 Mg/Ml Inj 2 Ml IV 03/23/24 04:08 Q6H PRN NAUSEA OR VOMITING Protocol Pantoprazole Sodium 40 mg 02/28/24 10:15 03/02/24 08:31 Pantoprazole Inj 40 Mg Vial IVP 03/29/24 10:14 40 mg QDAY JOE Administration Plan The patient is a 88-year-old male with significant past medical history of gout, hypertension, DVT currently on warfarin who presented to our ED with chief complaint of generalized weakness he is currently being treated for acute symptomatic blood loss anemia secondary to severe Coumadin coagulopathy. # Acute encephalopathy, recovering likely hospital induced delirium and polypharmacy. -Patient is agitated since last 3-4 days, overnight received a dose of olanzapine, quetiapine, haloperidol as of 02/28/2024 -On examination, patient is drowsy not responding to questions/commands -No focal neurological deficits noted -CT head on 02/28/1024 showed no acute hemorrhage -ABG on 02/28/2024 showed mild metabolic alkalosis with pH 7.43, pCO2 4 5, bicarb 30, PaO2 152 with oxy mask. Lactate is 2.6. -Chest x-ray did not show new infiltrates Plan -Restarted pur?ed diet and will advance the diet based on his tolerance. -Will stop delirium causing medications and try to reorient him. # New onset atrial fibrillation with rapid ventricular rate # In the setting of ongoing sepsis, resolved -Around 5:00 PM on 02/23/2024 patient was noted to have atrial fibrillation with rapid ventricular rate -Started on amiodarone as per protocol -Held heparin as patient INR is 2.1 -Echo is done - Grade I diastolic dysfunction. Estimated EF 55-60%. Dilated RV. Normal RV function. Estimated RVSP 80 mm hg. moderate to severe PAH. -Started Lasix 40 Mg IV twice daily in view of fluid overload on 02/23/2024 -On 02/24/2024 around 1:30 PM patient was found to have blood pressure of 90/60 mmHg on routine check but patient did not have any complaints So amiodarone drip was discontinued and Lasix was withheld, 500 cc of NS and 12.5 g of albumin was given. Blood pressure improved to 98/56 mmHg. Plan -On 02/25/2024, heart rate is around 112 and patient is still in A-fib with blood pressure within normal limits, so started on amiodarone 200 Mg twice daily. -Withheld Lasix as patient does not appear to be fluid overloaded -As patient's blood pressures are around 90-100/60-70, diltiazem is on hold. Will resume it once blood pressures improve. # ?Bowel perforation, sealed off # Pneumoperitoneum #? Peritonitis secondary to perforation # Suspected sepsis, resolved -Came to hospital with complaints of generalized weakness. -At the time of admission, temperature 96.2 ?F, WBC 13.7, -2/4 SIRS criteria plus suspected peritonitis 2/2 perforation in view of severe tenderness in the abdomen and free air under the diaphragm. -On examination, severe tenderness noted on superficial palpation mainly on the right upper quadrant. -Chest x-ray showed air under diaphragm -CT abdomen/pelvis report came back as pneumoperitoneum and immediately Dr. Do was consulted. -CBC as of 02/24/2024 is 23K--> 12/, 24.5 --> 12/6, 13.3 --12/, 9. -CT abdomen done on 02/24/2024 still showed pneumoperitoneum which is worsening -Lactate is 2.6 as of 02/28/2024 , Improved to 2 after giving fluids on the same day -As of 03/02/2024, CT abdomen/pelvis with Gastrografin enema showed no contrast leak suggesting seal of perforation. Plan -Dr. Gomez was consulted and and recommended no procedures on the patient in view of risk of perforation. -Dr. Mejia was following and recommended conservative management -As patient is not complaining of any pain, not on any pain medications. -Speech language evaluation was ordered and recommended dysphagia 3 diet -Patient is restarted on -Will continue Zosyn [02/24-present #Acute symptomatic blood loss anemia 2/2 #Severe Coumadin coagulopathy Patient is taking warfarin for long time for DVT, dose and frequency could not be figured out as patient is very hard of hearing and poor historian Etiology of blood loss unknown, but likely differential is acute GI bleed Presented with hemoglobin 6.0, hematocrit 22.9, PT greater than 63.0, INR out of range and APTT 58.3 Received 1 unit of PRBC in the ED Received 1 dose of vitamin K 10 Mg subcutaneous Received Kcentra 4950 units for Coumadin reversal as INR is out of range Plan -Received total 2 packs of RBC, 1 Pack of FFP, 4950 units of Kcentra, 2 doses of vitamin K 10 Mg, a dose of 40 Mg Lasix on the day of admission -Repeat INR on 02/23/2024 is 2.1 > 12/3, INR is 1.5 > 12/4, INR is 1.6 > 12/5 INR 2 > 12/6 INR 2.6 >12/7, INR 6.3 > 12/10, INR is 1.3 # New onset acute coagulopathy, resolved -Patient was initially admitted on 02/22/2024 for Coumadin coagulopathy and warfarin was stopped as of 02/22/2024. -Coagulation studies as of 03/01/2024 is PT 60.2, INR 6.3, APTT 66.3, fibrinogen 720, D-dimer 2520. Plan -Patient was given a dose of vitamin K 10 Mg as of 03/01/2024 as his INR is 5.6 but the repeat INR 4 hours later is 6.3 > 12/10, INR is 1.3 # Hypokalemia, resolved Likely due to continuous gastric suction and decreased oral intake -Potassium on 02/25/2024 is 3.1 --- potassium phosphate IV is given -Will continue to monitor the electrolytes. #H/O Hypertension Currently patient is hemodynamically stable and blood pressure is within normal limits -Monitor vitals #Hypothermia, resolved Presented with temperature of 96.2 and patient was placed on warmer -Currently temperature is stable # History of BPH -On tamsulosin 0.4 Mg p.o. daily at home Plan -As the blood pressures are labile, will resume tamsulosin once the blood pressures are stable # History of DVT, resolved -Patient was started on warfarin and IVC filter is placed almost 20 years ago -Patient was offered removal of IVC filter 6 years ago but patient denied the procedure -Patient continued to be on warfarin since then and found to have supratherapeutic INR at the time of admission #Leukocytosis, resolved -Likely due to perforation -Daily CBC monitoring # Moderate to severe pulmonary hypertension #?COPD -Echocardiogram done on 02/22/2024 showed - Normal LV size and function. Grade I diastolic dysfunction. Estimated EF 55-60% Dilated RV. Normal RV function. Estimated RVSP 80 mm hg. moderate to severe PAH. -Likely due to COPD, type III pulmonary hypertension Plan -Will recommend the patient to follow-up in outpatient setting with logistics lead and sap security architect Health maintenance: Dispo: medtele Diet: pureed DVT prophylaxis: SCDs CODE STATUS: DNR/DNI Patient plan of care was discussed with the attending physician, Dr. Orellana and senior resident Dr. Anton Gould, PGY1 Attending Provider Attestation/Addendum I reviewed labs, imaging, EKG, home medications and prior available records. Face to face evaluation was performed by me. I have personally examined the patient and discussed assessment and plan with the IM team. I reviewed the resident note and agree with the plan with exceptions as below. Hyperactive agitation: Improved. Associated with desaturation. Ordered chest x-ray without showed no interval changes. Ordered ABG that showed no profound hypoxia or hypercarbia. Ordered head CT that showed no acute changes. Likely in the setting of pain versus sleep deprivation. Delirium precautions. Ordered Seroquel/haloperidol as needed. Gave Tylenol. Consulted neurology. Appreciate recommendations. Acute hypoxic respiratory failure: Improving but still requiring high flow nasal cannula. Ordered CT that showed significant pleural effusion. Ordered IV Lasix. Consulted IR for pleurocentesis and he is status post pleurocentesis. Pneumoperitoneum: CT scan showed extensive pneumoperitoneum possibly from colonic perforation. Removed NG tube. Started IV Zosyn. Management of nausea/pain as needed. Kept the patient n.p.o. and started PPN. Repeated CT abdomen/pelvis showed severe pneumoperitoneum with free fluids. Discussed with general surgery: Given the elevated INR, he is not a candidate for surgery. Recommended goals of care discussion and hospice care. Ordered Gastrografin study that showed no extravasation. Advanced diet to pur?ed diet. Elevated INR: Improved. He is off anticoagulation. Etiology is unclear. Monitor for bleeding. Monitor PTT/INR. Atrial fibrillation with RVR: He is borderline tachycardic. Started p.o. amiodarone. Started p.o. diltiazem. Anticoagulation held due to elevated INR. Ordered DIC panel: Not suggestive of DIC. Leukocytosis: Reactive versus in the setting of abdominal infection. Management as above. Trend WBC: Downtrending.
[2024-03-02] MEDS: ACETYLCYSTEINE RT SOL 10% 4 ML NEBU 3 ML INH ×2 (14:58→22:36)
--- NOTE | 2024-03-02 19:31 | PC.RT ---
pt unable to do IS
--- NOTE | 2024-03-02 21:36 | ESPR_ITS ---
Documentation for date of: 03/02/24 Subjective Subjective Interval history: Patient evaluated He had a large bowel movement Abdomen is soft nontender active bowel sounds Case discussed with our colorectal surgeon Dr. Mejia Patient has a sealed off perforation of the abdominal viscus No indication at the moment for surgical intervention Continue present medications and management I also took the opportunity to call PGY 2 Dr. Pierson and discussed the case with her tonight Continue conservative management Exam Vital Signs Temp Pulse Resp BP Pulse Ox O2 Del Method O2 Flow Rate 97.0 F 93 26 H 126/75 93 L High Flow Nasal Cannula 25 03/02/24 20:00 03/02/24 20:49 03/02/24 20:00 03/02/24 20:49 03/02/24 20:00 03/02/24 20:00 03/02/24 20:00 FiO2 50 03/02/24 20:00 Objective Labs 03/02/24 07:43 03/02/24 07:43 Labs: Laboratory Results - last 24 hr 03/02/24 07:43 WBC 10.8 H RBC 4.17 L Hgb 8.5 L Hct 30.9 L MCV 74 L MCH 20.4 L MCHC 27.5 L RDW Std Deviation 64.3 H Plt Count 213 Neut % (Auto) 78 Lymph % (Auto) 12 [place] % (Auto) 8 Eos % (Auto) 1 Baso % (Auto) 0 Neut # (Auto) 8.4 H Lymph # (Auto) 1.3 [place] # (Auto) 0.9 H Eos # (Auto) 0.1 Baso # (Auto) 0.0 Immature Gran # (Auto) 0.12 H Absolute Nucleated RBC 0.03 H Immature Gran % 1 H Nucleated RBC % 0 PT 13.7 H D INR 1.3 APTT 43.6 H D Sodium 144 Potassium 3.6 Chloride 106 Carbon Dioxide 30.9 Anion Gap 7 BUN 19 Creatinine 0.7 Estim Creat Clear Calc 84.8 eGFR > 60 BUN/Creatinine Ratio 27 H Glucose 137 H Calculated Osmolality 291 Calcium 8.5 Corrected Calcium 9.6 Magnesium 2.1 Total Bilirubin 1.1 AST 14 ALT 10 Alkaline Phosphatase 88 Total Protein 5.7 Albumin 2.6 L Globulin 3.1 Albumin/Globulin Ratio 0.8 L Impressions Impression: # Pneumoperitoneum due to sealed off perforation Continue conservative management no indication for surgical intervention ABG Interpretation ABG results: 02/28/24 10:00 ABG pH 7.43 ABG pCO2 45 ABG pO2 152 H ABG HCO3 30 H ABG O2 Saturation 100 H ABG Base Excess 5 H Assessment & Plan A&P Narrative # Pneumoperitoneum with fluid intra-abdominal most likely sealed off perforation Not much in the NGT except small bilious amount Continue conservative management with IV antibiotics and NGT suction No need for surgical intervention at this time Although patient is anemic requiring blood transfusion I will hold off doing any invasive GI workup till patient improves Time Spent With Patient Time: Total time spent is greater than 50% in coordination of care (as documented) at patient's floor/unit and/or counseling patient:
--- NOTE | 2024-03-02 22:46 | ESPR_ITS ---
Documentation for date of: 03/02/24 Subjective Subjective Interval history: Mr. Espinoza is seen in telemetry at the bedside, desaturating, needing to be on high amount of FIO2 with 25 liters to maintain the o2 stats around low 90's. Got agitated few horus earlier, still on one on one supervision. Underwent pleurocentesis today. Exam - Neurology Vital Signs Temp Pulse Resp BP Pulse Ox O2 Del Method O2 Flow Rate 97.0 F 93 26 H 126/75 93 L High Flow Nasal Cannula 25 03/02/24 20:00 03/02/24 20:49 03/02/24 20:00 03/02/24 20:49 03/02/24 20:00 03/02/24 20:00 03/02/24 20:00 FiO2 50 03/02/24 20:00 Narrative Exam GENERAL APPEARANCE: Well hydrated, well-nourished in no acute distress. HEENT: Normocephalic, atraumatic, extraocular movements intact. Pupils: Equal reacting to light NECK: Supple, no JVD or bruits. CARDIOVASULAR: Heart: S1, S2 heard, regular without S3-S4 or murmur no rubs or gallops. LUNGS/CHEST: Clear to auscultation bilaterally. No rails, rhonchi, or wheezing. Normal inspection. ABDOMEN: Soft, nontender, with normal bowel sounds. No pulsatile masses. No rebound, rigidity, or guarding. Normal inspection and palpation. EXTREMITIES: Normal inspection and palpation. No edema, clubbing or cyanosis. SKIN: Warm and dry without rashes. Normal inspection. MUSCULOSKELETAL: No cervical, thoracic, lumbar or midline bony tenderness. Normal inspection. NEURO: Alert, awake and oriented x2. Cranial nerves: II through XII grossly intact. Speech and language: Normal with no dysarthria or dysphasia. Motor system: Tone and bulk: Normal: Strength: moves all 4 extremities; No pronator drift noted. Deep tendon reflexes: 1+ bilaterally symmetrical. Plantar reflex: Downgoing bilaterally. Sensory system: Intact to pinprick sensation bilaterally. Rest of the exam: Limited, no signs of meningeal irritation noted. PSYCHIATRIC: Anxious, intermittently agitated, at times needing physical and medical restraints. Objective Labs 03/02/24 07:43 03/02/24 07:43 Labs: Laboratory Results - last 24 hr 03/02/24 07:43 WBC 10.8 H RBC 4.17 L Hgb 8.5 L Hct 30.9 L MCV 74 L MCH 20.4 L MCHC 27.5 L RDW Std Deviation 64.3 H Plt Count 213 Neut % (Auto) 78 Lymph % (Auto) 12 [place] % (Auto) 8 Eos % (Auto) 1 Baso % (Auto) 0 Neut # (Auto) 8.4 H Lymph # (Auto) 1.3 [place] # (Auto) 0.9 H Eos # (Auto) 0.1 Baso # (Auto) 0.0 Immature Gran # (Auto) 0.12 H Absolute Nucleated RBC 0.03 H Immature Gran % 1 H Nucleated RBC % 0 PT 13.7 H D INR 1.3 APTT 43.6 H D Sodium 144 Potassium 3.6 Chloride 106 Carbon Dioxide 30.9 Anion Gap 7 BUN 19 Creatinine 0.7 Estim Creat Clear Calc 84.8 eGFR > 60 BUN/Creatinine Ratio 27 H Glucose 137 H Calculated Osmolality 291 Calcium 8.5 Corrected Calcium 9.6 Magnesium 2.1 Total Bilirubin 1.1 AST 14 ALT 10 Alkaline Phosphatase 88 Total Protein 5.7 Albumin 2.6 L Globulin 3.1 Albumin/Globulin Ratio 0.8 L ABG Interpretation ABG results: 02/28/24 10:00 ABG pH 7.43 ABG pCO2 45 ABG pO2 152 H ABG HCO3 30 H ABG O2 Saturation 100 H ABG Base Excess 5 H Assessment & Plan Assessment and plan (1) Delirium: Status: Acute Assessment and plan: Patient is stable with intermittent period of agitation today. He is on one-on-one supervision, off of restraints. Continue to monitor him closely. (2) Pneumoperitoneum of unknown etiology: Status: Acute Assessment and plan: Seen by GI, conservatively being managed with IV antibiotics.
[2024-03-03] VITALS (10 sets, daily range): BP systolic 90–103; BP diastolic 55–71; PULSE 82–97; RESP 18–30; TEMP 36.1–36.2; O2SAT 92–98; BMI 31.5
[2024-03-03] MEDS: PIPER/TAZO 3.375 GM 3.375 GM/50 ML BAG IV (05:19)
[2024-03-03 06:05] LABS: INR 1.3 (0.9-1.3); Partial Thromboplastin Time 37.3 Seconds (22.0-36.0); Prothrombin Time 13.8 Seconds (9.0-12.2)
[2024-03-03 06:48] LABS: Alanine Aminotransferase 10 U/L (10-49); Albumin, Serum 2.8 gm/dL (3.4-4.8); Alkaline Phosphatase 96 U/L (46-116); Anion Gap 5 (7-16); Aspartate Amino Transferase 14 U/L (0-34); BUN/Creatinine Ratio 33 Ratio (12-20); Bilirubin,Total 1.2 mg/dL (0.3-1.2); Blood Urea Nitrogen 23 mg/dL (9-23); Calcium 8.4 mg/dL (8.3-10.6); Calcium (Corrected) 9.4 mg/dL (8.5-10.1); Carbon Dioxide 30.9 mMol/L (20.0-31.0); Chloride 106 mMol/L (98-107); Creatinine (Component) 0.7 mg/dL (0.6-1.3); Estimated Creatinine Clearance 84.8 mL/min (>60); Globulin 2.9 gm/dL (2.3-3.5); Glucose 100 mg/dL (74-106); Osmolality,Calculated 286 (275-295); Sodium 142 mMol/L (136-145); Total Protein 5.7 gm/dL (5.7-8.2); eGFR > 60 See Note
[2024-03-03] MEDS: LEVALBUTEROL RT 0.63 MG/3 ML NEBU INH (07:07)
[2024-03-03] MEDS: PANTOPRAZOLE INJ 40 MG VIAL IVP (08:58)
[2024-03-03] MEDS: AMIODARONE HCL 200 MG TABLET PO (08:58)
[2024-03-03 09:58] LABS: Basophils # (Auto) 0.1 Thou/mm3 (0.0-0.2); Basophils % (Auto) 0 % (0-2.5); Eosinophils % (Auto) 0 % (0-10); Hematocrit 33.4 % (41.0-53.0); Hemoglobin 9.2 g/dL (13.5-16.0); Immature Granulocytes % (Auto) 1 % (0-0); Immature Granulocytes Auto 0.08 Thou/mm3 (0.00-0.00); Lymphocytes # (Auto) 1.5 Thou/mm3 (1.0-4.8); Lymphocytes % (Auto) 13 % (10-50); Mean Corpuscular HGB Conc 27.5 g/dl (31.0-37.0); Mean Corpuscular Hemoglobin 20.8 pg (25.0-35.0); Mean Corpuscular Volume 75 fL (80-100); Monocytes # (Auto) 1.2 Thou/mm3 (0.0-0.8); Monocytes % (Auto) 10 % (0-12); Neutrophils # (Auto) 8.8 Thou/mm3 (1.8-7.7); Neutrophils % (Auto) 76 % (37-80); Nucleated Red Blood Cell # 0.02 Thou/mm3 (0.00-0.00); Nucleated Red Blood Cell % 0 /100 WBC (0); Platelet Count 226 Thou/mm3 (140-440); RDW Standard Deviation 68.4 fL (35.1-43.9); Red Blood Count 4.43 Miln/mm3 (4.50-5.90); White Blood Count 11.7 Thou/mm3 (3.8-10.6)
--- NOTE | 2024-03-03 11:40 | PC.NURSE ---
call to pharmacy, need Venofer
[2024-03-03] MEDS: SODIUM CHLORIDE 0.9% 500 ML 500 ML IV (11:41)
[2024-03-03] MEDS: IRON SUCROSE CPLX INJ 20 MG/ML VIAL 5 ML 200 MG IVP (11:48)
--- NOTE | 2024-03-03 12:11 | PC.SS ---
Goals of care discussion conducted with patient's son, Chente Espinoza, Dr. Orellana, Dr. Walton and undersigned. Attending provided overview on patient's condition, treatment plan and prognosis. POLST form completed, patient now DNR/DNI. Patient's son confirmed discharge plan will be to SNF. student support services director to submit referral via [facility]. Original form of POLST provided to patient's son, copy placed in patient's chart. Bedside nurse updated.
[2024-03-03] MEDS: FUROSEMIDE INJ 10 MG/ML 4ML VIAL 40 MG IVP (13:13)
[2024-03-03] MEDS: LORazepam 2 MG/ML VIAL 1 MG IVP (13:19)
[2024-03-03] MEDS: MORPHINE SULF INJ 10 MG/ML VIAL 2 MG IVP (13:24)
--- NOTE | 2024-03-03 14:03 | PD.DPN ---
Documentation for date of: 03/03/24 Pronouncement Note Date and Time of Date of : 03/03/24 Time of : 13:44 PCOD Preliminary cause of : Cardiopulmonary arrest Contributing Factors (1) Pneumoperitoneum of unknown etiology: (2) Acute hypoxic respiratory failure: (3) Atrial fibrillation with rapid ventricular response: (4) Delirium: Summary Additional details: Called by RN to pronounce Mariaelena Espinoza. On exam, no heart sounds or breath sounds were noted after 1 minute of auscultation. Pupils were fixed and dilated without pupillary light reflex. Patient was pronounced on 03/03/[address] Orellana was notified. Family was present and condolences were offered. Additional Data Confirmation of : no pulse, no respirations, no heart sounds and pupils fixed and dilated Family: at bedside Additional persons at bedside: other (RN, WIRELESS CELLULAR TECHNICIAN) Attending/PCP notified?: Yes Attending physician: Deep Orellana MD Was code activated?: No
--- NOTE | 2024-03-03 15:00 | PD.DDS ---
Documentation for date of: 03/03/24 Summary Date and Time Date of admission: 02/22/24 04:09 Date of : 03/03/24 Time of : 13:44 Summary Hospital Course: The patient is a 88-year-old male with significant past medical history of gout, hypertension, DVT currently on warfarin was brought to the hospital with chief complaints of generalized weakness and diagnosed to have coumadin coagulopathy and peritonitis secondary to pneumoperitoneum. At the time of admission patient was found to have elevated WBC, anemia 5.9, PT >63,INR not measurable and aptt 58.3. Patient was treated with vitamin K, PCC,FPP, PRBC infusions. Later eventually INR came back to normal limits. Later on examination patient was found to have severe abdominal tenderness for which CT abdomen was done and it showed pneumoperitoneum. Dr. Do was consulted and recommended conservative management as patient is stable at that time and with suspicion of sealed perforation. Dr. Gomez was consulted and recommended no invasive procedures as patient had pneumoperitoneum and risk of further perforation. Patient was treated with IV Zosyn. Patient also developed atrial fibrillation during the hospital stay for which patient was started on amiodarone. Eventually, patient became agitated, drowsy and developed acute hypoxic respiratory failure and started on high flow oxygen. Goals of care discussion were done with the son and explained about the prognosis. On 03/03/2024, patient said that he wants to go to home. Patient was initially planned to be discharged to home after weaning of high flow. After weaning of high flow, patient immediately desaturated to 70s so patient was immediately restarted on high flow oxygen. Goals of care discussion were done with the son and he opted for hospice care. Later, patient was pronounced on 03/03/2024 at 13: 44. Attending Dr. Orellana was noted. Son was present by the bedside and condolences were offered. # Acute encephalopathy # New onset atrial fibrillation # Bowel perforation, sealed off # Pneumoperitoneum #Peritonitis secondary to perforation # Suspected sepsis, resolved #Acute symptomatic blood loss anemia 2/2 #Severe Coumadin coagulopathy #H/O Hypertension # History of BPH # History of DVT, resolved # Moderate to severe pulmonary hypertension #?COPD Discussed with the attending physician, Dr. Orellana and senior resident Dr. Anton Gould, PGY1 Attending's attestation: I reviewed labs, imaging, EKG, home medications and prior available records. Face to face evaluation was performed by me. I have personally examined the patient and discussed assessment and plan with the IM team. I reviewed the resident note and agree with the plan with exceptions as below. Cause of is acute hypoxic respiratory failure in the setting of septic shock secondary to intra-abdominal infection in the setting of large bowel perforation. Contributing factors include atrial fibrillation with RVR, acute encephalopathy, and comfort care only status. Additional Data Attending physician: Deep Orellana MD Visit Providers Provider Primary care physician: Physician No Primary/Family Consults: 02/22/24 09:30 Referral Physical Therapy Routine Comment: Physician Instructions: Referral Respiratory Therapy Routine Comment: 02/22/24 16:13 Consult to General Surgery Stat Comment: Consulting Provider: Amaris Mejia 02/23/24 10:23 Consult to Gastroenterology Routine Comment: Consulting Provider: Inga Gomez 02/28/24 11:31 Consult to Neurology / Tele-Neurology Routine Comment: worsening encephalopathy Consulting Provider: Frank Daigle 03/01/24 10:21 Referral Registered Dietitian Routine Comment: PPN needed pls Diagnosis Contributing Factors (1) Pneumoperitoneum of unknown etiology: (2) Acute hypoxic respiratory failure: (3) Atrial fibrillation with rapid ventricular response: (4) Delirium: Discharge Plan Plan Patient Disposition: Prescriptions/Referrals Referrals: No Primary/Family,Physician [Primary Care Provider] - Patient/Caregiver Discharge Instructions Print Language: Sinhala
== END 2024-03-03 13:44 | disposition expired | DRG 871 ==
LOC: SERX 05:00 → SERHOLD 05:07 → S3NX 08:08 → S2NX 02-23 18:15
PROVIDERS: Internal Medicine; Student in an Organized Health Care Education/Training Program; Surgery; Admitting Provider Internal Medicine; Emergency Provider Emergency Medicine; Visit Provider Student in an Organized Health Care Education/Training Program
DX: A41.9 Sepsis, unspecified organism (principal); K63.1 Perforation of intestine (nontraumatic); I50.33 Acute on chronic diastolic (congestive) heart failure; J96.01 Acute respiratory failure with hypoxia; K65.9 Peritonitis, unspecified; R65.21 Severe sepsis with septic shock; D62 Acute posthemorrhagic anemia; G93.41 Metabolic encephalopathy; E87.3 Alkalosis; F05 Delirium due to known physiological condition; J98.11 Atelectasis; D68.32 Hemorrhagic disorder due to extrinsic circulating anticoagulants; K66.8 Other specified disorders of peritoneum; T45.515A Adverse effect of anticoagulants, initial encounter; H91.90 Unspecified hearing loss, unspecified ear; K59.00 Constipation, unspecified; M10.9 Gout, unspecified; J44.9 Chronic obstructive pulmonary disease, unspecified; R68.0 Hypothermia, not associated with low environmental temperature; I11.0 Hypertensive heart disease with heart failure; I27.20 Pulmonary hypertension, unspecified; E87.6 Hypokalemia; I48.91 Unspecified atrial fibrillation; I46.8 Cardiac arrest due to other underlying condition; Z66 Do not resuscitate; Z86.718 Personal history of other venous thrombosis and embolism; Z51.5 Encounter for palliative care; Z78.1 Physical restraint status; Z79.01 Long term (current) use of anticoagulants; Z79.899 Other long term (current) drug therapy; Z88.6 Allergy status to analgesic agent
CPT/HCPCS: 36415; 36430; 36600; 70450; 71045; 74176; 74177; 74270; 76999; 80048; 80053; 80069; 80076; 81001; 82270; 82728; 82803; 83540; 83550; 83605; 83615; 83690; 83735; 83880; 84100; 84132; 84145; 84478; 84484; 85007; 85014; 85018; 85025; 85027; 85046; 85379; 85384; 85610; 85730; 86850; 86900; 86901; 86923; 86927; 87040; 87086; 87811; 92526; 92610; 93005; 93225; 93306; 93931; 94640; 94664; 94667; 96365; 96372; 97162; 99285; A4216; A4649; B4185; J0283; J0612; J1630; J1756; J1940; J2060; J2270; J2358; J2470; J2543; J3430; J3475; J3480; J3490; J7030; J7040; J7050; J7168; J7999; P9016; P9047; P9060; Q9967; A9270; J2359